=== PATIENT | female | born 1930 | race Caucasian/White ===

== ENCOUNTER 2016-07-09 10:33 | Emergency (ER) | payer MEDICARE, BC ==
--- NOTE | 2016-07-09 12:02 | RAD ---
HISTORY: Right wrist pain and swelling COMPARISONS: None VIEWS: 3, Frontal, lateral, and oblique views of the right wrist FINDINGS: BONE DENSITY: There is diffuse osteopenia. BONES: There is a nondisplaced transverse fracture of the distal radial metaphysis. JOINTS: There is osteoarthritis of the first CMC joint and of the fourth and fifth interphalangeal joints ALIGNMENT: There is no dislocation. SOFT TISSUES: Unremarkable. OTHER FINDINGS: None. IMPRESSION: 1. OSTEOPENIA. 2. NONDISPLACED TRANSVERSE FRACTURE OF THE DISTAL RADIAL METAPHYSIS. 3. OSTEOARTHRITIS. 4. THE DEGREE OF OSTEOPENIA MAY MAKE OTHER, NONDISPLACED FRACTURES RADIOGRAPHICALLY OCCULT. IF THERE IS CLINICAL CONCERN FOR OTHER FRACTURE, CONSIDER REPEAT IMAGING.
[2016-07-09 13:07] VITALS: BP 199/168
--- NOTE | 2016-07-10 22:45 | ED ---
Darren Sanchez Adam, scribed for Wei Hedrick MD on 07/09/16 at 1108 . Lower Extremity - HPI Summary HPI Summary: Pt is an 85 year old female presenting with right hip pain, according to the staff at her nursing facility. Her aide states that the pt had an unwitnessed fall yesterday and was diagnosed with a right distal radial fracture. Today she reportedly began to c/o pain in her right hip, although upon examination she denies any pain in her hips. Aside from tenderness in her right wrist, the pt has no complaints at this time. She uses a walker at baseline. - History of Current Complaint Chief Complaint: EDExtremityLower Stated Complaint: RT HIP PAIN Time Seen by Provider: 07/09/16 11:03 Hx Obtained From: Patient, Family/Senior Outside Sales Representative Mechanism Of Injury: Fall From A Standing Position Onset of Pain: Post Accident Onset/Duration: Still Present - In right wrist. Pt denies right hip pain. Severity Initially: Mild Severity Currently: None - In right hip Pain Intensity: 0 Pain Scale Used: 0-10 Numeric Timing: Constant Location: Is Discrete @ - Right wrist (pt denies pain in right hip) Aggravating Factor(s): Movement Alleviating Factor(s): Nothing Able to Bear Weight: Yes - Uses a walker. - Allergies/Home Medications Allergies/Adverse Reactions: Allergies Allergy/AdvReac Type Severity Reaction Status Date / Time Penicillins [PCN] Allergy Unknown Verified 07/09/16 12:11 Reaction Details PMH/Surg Hx/FS Hx/Imm Hx Endocrine/Hematology History: Denies: Hx Anticoagulant Therapy, Hx Blood Disorders Neurological History: Reports: Hx Dementia Infectious Disease History: No Infectious Disease History: Denies: Traveled Outside the [place] in Last 30 Days - Family History Known Family History: Positive: None - R and n/c - Social History Occupation: Retired [facility]: [facility] Alcohol Use: None Hx Substance Use: No Substance Use Type: Reports: None Hx Tobacco Use: No Smoking Status (MU): Never Smoked Tobacco Review of Systems Negative: Fever Positive: Arthralgia - Right wrist All Other Systems Reviewed And Are Negative: Yes Physical Exam Triage Information Reviewed: Yes Vital Signs On Initial Exam: Initial Vitals Temp Pulse Resp BP Pulse Ox 99.6 F 74 16 136/61 93 07/09/16 10:52 07/09/16 10:52 07/09/16 10:52 07/09/16 10:52 07/09/16 10:52 Vital Signs Reviewed: Yes Appearance: Positive: Well-Appearing, No Pain Distress Skin: Positive: Warm, Skin Color Reflects Adequate Perfusion, Dry Head/Face: Positive: Normal Head/Face Inspection Eyes: Positive: Normal ENT: Positive: Normal ENT inspection Neck: Positive: Supple, Nontender Respiratory/Lung Sounds: Positive: Clear to Auscultation, Breath Sounds Present Cardiovascular: Positive: RRR Abdomen Description: Positive: Nontender, Soft Bowel Sounds: Positive: Present Musculoskeletal: Positive: Normal Neurological: Positive: Normal Psychiatric: Positive: Affect/Mood Appropriate - [place] Coma Scale Coma Scale Total: 14 Diagnostics - Vital Signs Vital Signs Temp Pulse Resp BP Pulse Ox 07/09/16 10:52 99.6 F 74 16 136/61 93 - Laboratory Lab Statement: Any lab studies that have been ordered have been reviewed, and results considered in the medical decision making process. - Radiology WRIST X-RAY Radiology Interpretation Completed By: Radiologist - IMPRESSION: 1. OSTEOPENIA. 2. NONDISPLACED TRANSVERSE FRACTURE OF THE DISTAL RADIAL METAPHYSIS. 3. OSTEOARTHRITIS. 4. THE DEGREE OF OSTEOPENIA MAY MAKE OTHER, NONDISPLACED FRACTURES RADIOGRAPHICALLY OCCULT. IF THERE IS CLINICAL CONCERN FOR OTHER FRACTURE, CONSIDER REPEAT IMAGING. Lower Extremity Course/Dx - Course Course Of Treatment: Ms. Serrano had no pain or tenderness in her hips including with ambulation. She did have a nondisplaced right wrist fracture that we splinted for protection. - Diagnoses Provider Diagnoses: Right wrist fracture Discharge - Discharge Plan Condition: Stable Disposition: HOME Patient Education Materials: Wrist Fracture in Adults (ED) Referrals: Megan Breaux MD [Primary Care Provider] - Additional Instructions: Follow up with your Primary Care Physician this week. The documentation as recorded by the Darren manning Adam accurately reflects the service I personally performed and the decisions made by , Wei Hedrick MD.
== END 2016-07-09 13:06 | disposition home or self-care (01) ==
LOC: ED 10:33
DX: S52.591A Other fractures of lower end of right radius, initial encounter for closed fracture (principal); M25.551 Pain in right hip; M85.80 Other specified disorders of bone density and structure, unspecified site; W19.XXXA Unspecified fall, initial encounter; Y93.9 Activity, unspecified; Y92.9 Unspecified place or not applicable
CPT/HCPCS: 99283

== ENCOUNTER 2016-07-28 22:30 | Emergency (ER) | payer MEDICARE, BC ==
--- NOTE | 2016-07-29 00:08 | ED ---
Zachary Sanchez Janilya, scribed for Gemma Pal MD on 07/28/16 at 2258 . Adult Trauma - HPI Summary HPI Summary: An 85 y/o female was BIBA to [facility] presenting w/ an onset of fall that happened today. There is hx of dementia and pt is hard of hearing. The pt lives in a fdc. The fall was unwitnessed. However, there is a bloody and bruised ear. Per nurse from the fdc, pt is on bloodthinners. - History of Current Complaint Chief Complaint: EDGeneral Stated Complaint: SCRATCH ON LT EAR Time Seen by Provider: 07/28/16 22:50 Hx Obtained From: Family/Volunteer Services Supervisor Mechanism of Injury: Fall Pain Intensity: 2 Pain Scale Used: 0-10 Numeric Aggravating Factor(s): Nothing Alleviating Factor(s): Nothing - Allergy/Home Medications Allergies/Adverse Reactions: Allergies Allergy/AdvReac Type Severity Reaction Status Date / Time Penicillins [PCN] Allergy Unknown Verified 07/09/16 12:11 Reaction Details PMH/Surg Hx/FS Hx/Imm Hx Previously Healthy: Yes Endocrine/Hematology History: Denies: Hx Anticoagulant Therapy, Hx Blood Disorders Neurological History: Reports: Hx Dementia Infectious Disease History: Denies: Traveled Outside the [place] in Last 30 Days - Social History Occupation: Retired [facility]: [facility] Alcohol Use: None Hx Substance Use: No Substance Use Type: Reports: None Hx Tobacco Use: No Smoking Status (MU): Never Smoked Tobacco Review of Systems Negative: Fever ENT: Other - bruised and bloody ear All Other Systems Reviewed And Are Negative: Yes Physical Exam Triage Information Reviewed: Yes Vital Signs On Initial Exam: Initial Vitals Temp Pulse Resp BP Pulse Ox 97.4 F 74 16 166/65 98 07/28/16 22:40 07/28/16 22:40 07/28/16 22:40 07/28/16 22:40 07/28/16 22:40 Vital Signs Reviewed: Yes Appearance: Positive: Well-Appearing, No Pain Distress Skin: Positive: Warm, Skin Color Reflects Adequate Perfusion Head/Face: Positive: Other - Ecchymosis on top of oracle on left side Eyes: Positive: EOMI, CRISTA ENT: Positive: Pharynx normal, TMs normal Neck: Positive: Supple, Nontender Respiratory/Lung Sounds: Positive: Clear to Auscultation, Breath Sounds Present. Negative: Rales, Rhonchi, Wheezes Cardiovascular: Positive: RRR. Negative: Murmur, Rub, Other - no gallops Abdomen Description: Positive: Nontender, Soft. Negative: Distended, Guarding, Other: - no rebound Bowel Sounds: Positive: Present Musculoskeletal: Positive: Strength/ROM Intact. Negative: Edema Left, Edema Right Neurological: Positive: Sensory/Motor Intact, Alert, Oriented to Person Place, Time, CN Intact II-III Psychiatric: Positive: Affect/Mood Appropriate Diagnostics - Vital Signs Vital Signs Temp Pulse Resp BP Pulse Ox 07/28/16 22:41 75 166/65 98 07/28/16 22:40 97.4 F 74 16 166/65 98 - Laboratory Lab Statement: Any lab studies that have been ordered have been reviewed, and results considered in the medical decision making process. - CT brain CT Interpretation: No Acute Changes - No hemorrhage. Involutional changes. Chronic microvascular changes in the cerebral white matter. 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 Old right frontal infarct. Old bilateral cerebellar infarcts. No acute abnormalities are identified. Osseous structures are intact. CT Interpretation Completed By: Radiologist Adult Trauma Course/Dx - Course Course Of Treatment: An 85 y/o female was BIBA to [facility] presenting w/ an onset of fall that happened today. There is hx of dementia and pt is hard of hearing. The pt lives in a fdc. The fall was unwitnessed. However, there is a bloody and bruised ear. Per nurse from the fdc, pt is on bloodthinners. pt is on aggrenox, ear has a contusion ct brain is negative ok to go home - Diagnoses Provider Diagnoses: Contusion of ear Discharge - Discharge Plan Condition: Stable Disposition: HOME Patient Education Materials: Contusion in Adults (ED) Referrals: Megan Breaux MD [Primary Care Provider] - 2 Days The documentation as recorded by the Zachary manning Janilya accurately reflects the service I personally performed and the decisions made by me, Gemma Pal MD.
[2016-07-29 00:17] VITALS: BP 157/72
--- NOTE | 2016-07-29 08:10 | RAD ---
Indication: Bruised and bloodied ear. Possible unwitnessed fall. Comparison: January 01, 2016. Technique: Noncontrast CT vertex of skull through foramen magnum. Report: Negative for intra or extra-axial hemorrhage. Moderate region of encephalomalacia at the RIGHT occipital lobe and contiguous parietal lobe without change consistent with sequela of previous infarct. Patchy encephalomalacia at the LEFT occipital lobe without change likely also secondary to previous infarcts. Decreased density in the periventricular and subcortical white matter while non-specific is most likely due to chronic microangiopathy. No new region of monge matter white matter obscuration evident. Moderate prominence of the cerebral sulci and cerebellar fissures as well as proportional enlargement of the ventricles reflecting atrophy. Patent basal cisterns. Unremarkable visualized orbital contents. Negative for calvarial or skull base fracture. Clear visualized paranasal sinuses and mastoid air spaces. Negative for scalp hematoma.. IMPRESSION: 1. No evidence for traumatic injury or acute intracranial process. 2. Atrophy, stigmata of chronic small vessel ischemic disease, and old infarcts at the RIGHT posterior cerebral artery distribution and LEFT cerebellum.
== END 2016-07-29 00:29 | disposition home or self-care (01) ==
LOC: ED 22:30
DX: S00.432A Contusion of left ear, initial encounter (principal); W19.XXXA Unspecified fall, initial encounter; Y93.9 Activity, unspecified; Y92.9 Unspecified place or not applicable; Y99.9 Unspecified external cause status
CPT/HCPCS: 70450; 99283

== ENCOUNTER 2016-11-23 21:45 | Inpatient (IN) | payer MEDICARE, BC ==
[2016-11-23] MEDS ORDERED: NS 0.9% 1000 ML* 1,000 ML IV ONE (22:09)
--- NOTE | 2016-11-23 22:36 | ED ---
Linh Sanchez Rebecca, scribed for Phi Pierre MD on 11/23/16 at 2209 . 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 Upon EMS arrival, pt is alert and answers questions. Per EMS, her staff reports that she is requiring more assistance than usual to stand up and use her walker. When asked, pt denies any pain, nausea and SOB, though she repeatedly states "I don't know anything." Per staff, recent Dx UTI. PMHx dementia. History obtained from pt is very limited secondary to PMHx dementia. 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 Negative: SOB, Nausea Related History: Recent Illness - UTI - Allergies/Home Medications Allergies/Adverse Reactions: Allergies Allergy/AdvReac Type Severity Reaction Status Date / Time Penicillins [PCN] Allergy Unknown Verified 07/09/16 12:11 Reaction Details Home Medications: Home Medications Acetaminophen [Eql Acetaminophen] 325 mg PO Q4HR PRN 11/24/16 [History Confirmed 11/24/16] Amlodipine Besylate [Norvasc 10 mg tab] 10 mg PO DAILY 11/24/16 [History Confirmed 11/24/16] Aspirin-Dipyridamole [Aspirin/Dipyridamole 25-200 mg] 1 cap PO BID 11/24/16 [ History Confirmed 11/24/16] Atorvastatin* [Lipitor*] 20 mg PO 2100 11/24/16 [History Confirmed 11/24/16] Benazepril & Hydrochlorothiazi [Benazepril HCl/Hydrochlor 20-12.5 mg-] 1 tab PO 1200 11/24/16 [History Confirmed 11/24/16] Calcium Carbonate-Vitamin D [Calcium 600 + D] 1 tab PO DAILY 11/24/16 [History Confirmed 11/24/16] Donepezil Hydrochloride [Donepezil HCl] 10 mg PO 1200 11/24/16 [History Confirmed 11/24/16] HydroxyUREA CAP* [Hydrea CAP*] 500 mg PO DAILY 11/24/16 [History Confirmed 11/24] Memantine XR CAP* [Namenda XR CAP*] 14 mg PO 2100 11/24/16 [History Confirmed ] Metoprolol Tartrate TAB* [Lopressor TAB*] 25 mg PO BID 11/24/16 [History Confirmed 11/24/16] Multiple Vitamins W/ Iron [Daily Bessie Multivitamin/I] 1 tab PO DAILY 11/24/16 [ History Confirmed 11/24/16] Naphazoline W/ Pheniramine [Opcon-A] 1 gretta OP Q4HR PRN 11/24/16 [History Confirmed 11/24/16] Sulfamethox/Trimethoprim DS* [Bactrim DS 800/160 TAB*] 1 tab PO BID 11/24/16 [ History Confirmed 11/24/16] guaiFENesin LIQ* [Robitussin*] 10 mg PO Q4H PRN 11/24/16 [History Confirmed ] PMH/Surg Hx/FS Hx/Imm Hx Endocrine/Hematology History: Denies: Hx Anticoagulant Therapy, Hx Blood Disorders Neurological History: Reports: Hx Dementia Infectious Disease History: No Infectious Disease History: Denies: Traveled Outside the [place] in Last 30 Days - Family History Known Family History: Positive: Unknown - Unable to obtain secondary to dementia /poor historian - Social History Alcohol Use: None Hx Substance Use: No Substance Use Type: Reports: None Hx Tobacco Use: No Smoking Status (MU): Never Smoked Tobacco Review of Systems Positive: Fatigue, Other - Decreased responsiveness 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 Negative: Nausea All Other Systems Reviewed And Are Negative: Yes Physical Exam Triage Information Reviewed: Yes Vital Signs On Initial Exam: Initial Vitals Temp Pulse Resp BP Pulse Ox 97.1 F 68 14 133/54 96 11/23/16 22:04 11/23/16 22:04 11/23/16 22:04 11/23/16 22:04 11/23/16 22:04 Vital Signs Reviewed: Yes Completion Of Physical Exam Limited Due To: Dementia Appearance: Positive: No Pain Distress, Thin Skin: Positive: Warm Head/Face: Positive: Normal Head/Face Inspection Eyes: Positive: CRISTA ENT: Positive: Hearing grossly normal Neck: Positive: Supple Respiratory/Lung Sounds: Positive: Clear to Auscultation, Breath Sounds Present Cardiovascular: Positive: RRR Abdomen Description: Positive: Nontender, Soft Bowel Sounds: Positive: Present Musculoskeletal: Positive: Strength/ROM Intact Neurological: Positive: Sensory/Motor Intact Psychiatric: Positive: Affect/Mood Appropriate Diagnostics - Vital Signs Vital Signs Temp Pulse Resp BP Pulse Ox 11/23/16 22:04 97.1 F 68 14 133/54 96 - Laboratory Result Diagrams: 11/23/16 22:25 11/24/16 00:01 Lab Statement: Any lab studies that have been ordered have been reviewed, and results considered in the medical decision making process. - CT Brain CT CT Interpretation: No Acute Changes - Multiple old infarcts no definite evidence of acute pathology. ED physician reviewed this radiology report and agrees. CT Interpretation Completed By: Radiologist - EKG 2313 Cardiac Rate: NL - 67 bpm EKG Rhythm: Sinus Rhythm EKG Interpretation: No STEMI Re-Evaluation - Re-Evaluation First Eval Re-Evaluation Time: 23:10 Comment: Pt is sleeping upon reevaluation. 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 Upon EMS arrival, pt is alert and answers questions. When asked, pt denies any pain, nausea and SOB, though she repeatedly states "I don't know anything." Per staff , recent UTI. PMHx dementia. History obtained from pt is very limited secondary to PMHx dementia. EKG reveals sinus rhythm. Sodium of 115, chloride of 91. Discussed care of pt with Dr. Narayan who accepts pt for admission. Pt will be admitted with Dx of hyponatremia. She agrees with admission. Elevated BP noted and advised to f/u with PCP. - Diagnoses Provider Diagnoses: Hyponatremia - Physician Notifications Discussed Care Of Patient With: Filippo Narayan Time Discussed With Above Provider: 23:08 Instructed by Provider To: Other - Accepts pt for admission. Discharge - Discharge Plan Condition: Fair Disposition: ADMITTED TO [facility] documentation as recorded by the Linh manning Rebecca accurately reflects the service I personally performed and the decisions made by me, Phi Pierre MD.
[2016-11-23 22:51] LABS: Albumin 3.7 g/dL (3.2-5.2); BUN/Creatinine Ratio 22.4 (8-20); EGFR African American 106.8 (>60); EGFR Non-African American 83.1 (>60); Globulin 2.7 g/dL (2-4); Magnesium 1.9 mg/dL (1.9-2.7); Potassium 4.2 mmol/L (3.5-5.0); Total Bilirubin 0.5 mg/dL (0.2-1.0); Total Protein 6.4 g/dL (6.4-8.9)
[2016-11-23 22:53] LABS: Troponin I 0.01 ng/mL (<0.04)
[2016-11-23 23:15] LABS: TSH (Thyroid Stimulating Horm) 4.42 mcIU/mL (0.34-5.60)
[2016-11-23 23:16] LABS: Hematocrit 35 % (35-47); Hemoglobin 12.1 g/dl (12.0-16.0); Mean Corpuscular HGB Conc 35 g/dl (31-36); Mean Corpuscular Hemoglobin 37 pg (27-31); Mean Platelet Volume 7 um3 (7.4-10.4); Red Blood Count 3.25 10^6/ul (4.0-5.4); Red Cell Distribution Width 14 % (10.5-15); White Blood Count 9.4 10^3/ul (3.5-10.8)
[2016-11-23 23:17] LABS: Add Diff/Slide Review? Slide Review Added; Mean Corpuscular Volume 107 fL (80-97)
[2016-11-23] MEDS ORDERED: Acetaminophen TAB* 325 MG PO PRN (23:17)
[2016-11-23] MEDS ORDERED: Ondansetron INJ* 2 MG/ML VIAL IV PRN (23:18)
--- NOTE | 2016-11-24 00:07 | HP ---
H&P (Free Text) History and Physical: PCP: Pat Breaux MD Date/Time of Evaluation: 11/23/2016 2345 CC: lethargy HPI: Mrs Serrano is an 86YO female who presents with a paucity of information via EMS from [facility]. She has moderate to advanced dementia and is unable to give a history. When asked how she feels, she sticks out her tongue. She is oriented to person and while it takes a bit she is able to state she is in [facility]. She cannot give any current complaints and appears comfortable without objective distress. Per EMS record, they were dispatched due to lethargy and increased assistance requirements along with some N/V/D today. She had labs checked yesterday that were reasonable and is finishing a course of sulfamethoxazole/trimethoprim tomorrow for UTI. There is no report of pain, F/C , cough, congestion, or other issues. Upon arrival, EMS found her to be at her baseline with the licensed nursing assistant stating she felt Mrs Serrano was just tired. PMedHx Alzheimer's dementia CVAs CLL polycythemia thromocytosis HTN HLD Medications Acetaminophen [Eql Acetaminophen] 325 mg PO Q4HR PRN 11/24/16 Amlodipine Besylate [Norvasc 10 mg tab] 10 mg PO DAILY 11/24/16 Aspirin-Dipyridamole [Aspirin/Dipyridamole 25-200 mg] 1 cap PO BID 11/24/16 Atorvastatin* [Lipitor*] 20 mg PO 209911/24/16 Benazepril & Hydrochlorothiazi [Benazepril HCl/Hydrochlor 20-12.5 mg-] 1 tab PO 1200 11/24/16 Calcium Carbonate-Vitamin D [Calcium 600 + D] 1 tab PO DAILY 11/24/16 Donepezil Hydrochloride [Donepezil HCl] 10 mg PO 1200 11/24/16 HydroxyUREA CAP* [Hydrea CAP*] 500 mg PO DAILY 11/24/16 Memantine XR CAP* [Namenda XR CAP*] 14 mg PO 209911/24/16 Metoprolol Tartrate TAB* [Lopressor TAB*] 25 mg PO BID 11/24/16 Multiple Vitamins W/ Iron [Daily Bessie Multivitamin/I] 1 tab PO DAILY 11/24/16 Naphazoline W/ Pheniramine [Opcon-A] 1 gretta OP Q4HR PRN 11/24/16 Sulfamethox/Trimethoprim DS* [Bactrim DS 800/160 TAB*] 1 tab PO BID 11/24/16 guaiFENesin LIQ* [Robitussin*] 10 mg PO Q4H PRN 11/24/16 Allergies Penicillins [PCN] Allergy (Verified 07/09/16 12:11) Unknown Reaction Details PSurgHx unobtainable SocHx: unobtainable FamHx: unobtainable ROS: as above, otherwise reviewed and all were negative Constitutional: NAD, normally developed, elderly white female vitals: Vital Signs Temp 36.8 C 11/23/16 22:39 Pulse 73 11/23/16 22:39 Resp 16 11/23/16 22:39 BP 121/50 11/23/16 22:39 Pulse Ox 96 11/23/16 22:39 Intake & Output 11/23/16 11/23/16 11/24/16 11:59 23:59 11:59 Weight 44.452 kg HEENM: atraumatic; sclera/conjunctiva: non-icteric/clear; hearing: unable to reliably assess; oropharynx: clear, mucosa tacky Neck: soft tissue: non-tender; thyroid: normal Pulmonary: clear to auscultation bilaterally, good aeration, no accessory muscle use CV: RR/RR, normal S1S2, no carotid bruit, no jugular venous distention, 2+ B DP/ PT, no edema Abdominal: soft, non-distended, non-tender with voluntary guarding but no rebound/rigidity, normoactive bowel sounds, no hepatosplenomegaly or masses, no costovertebral angle tenderness Musculoskeletal: general: grossly intact, no palpable tenderness Integumental: normal appearance and texture of exposed skin Neurological intact facial symmetry moves extremities x4 no dysarthria Psychiatric orientation: AA&O to PP, not TS, confused affect: comfortable mood: immature eye contact: fair to poor content: unreliable memory: poor globally responses: slowed insight: poor Testing: Lab Results 11/23/16 11/23/16 11/23/16 Range/Units 22:25 22:25 22:25 WBC 9.4 (3.5-10.8) 10^3/ul RBC 3.25 L (4.0-5.4) 10^6/ul Hgb 12.1 (12.0-16.0) g/dl Hct 35 (35-47) % MCV 107 H (80-97) fL MCH 37 H (27-31) pg MCHC 35 (31-36) g/dl RDW 14 (10.5-15) % Plt Count 255 (150-450) 10^3/ul MPV 7 L (7.4-10.4) um3 Neut % (Auto) 80.0 (38-83) % Lymph % (Auto) 12.6 L (25-47) % Wilkin % (Auto) 6.7 (1-9) % Eos % (Auto) 0.4 (0-6) % Baso % (Auto) 0.3 (0-2) % Absolute Neuts (auto) 7.5 (1.5-7.7) 10^3/ul Absolute Lymphs (auto) 1.2 (1.0-4.8) 10^3/ul Absolute Monos (auto) 0.6 (0-0.8) 10^3/ul Absolute Eos (auto) 0 (0-0.6) 10^3/ul Absolute Basos (auto) 0 (0-0.2) 10^3/ul Absolute Nucleated RBC 0 10^3/ul Nucleated RBC % 0 Sodium 115 L* D (133-145) mmol/L Potassium 4.2 (3.5-5.0) mmol/L Chloride 91 L (101-111) mmol/L Carbon Dioxide 23 (22-32) mmol/L Anion Gap 1 L (2-11) mmol/L BUN 15 (6-24) mg/dL Creatinine 0.67 (0.51-0.95) mg/dL Est GFR ( Amer) 106.8 (>60) Est GFR (Non-Af Amer) 83.1 (>60) BUN/Creatinine Ratio 22.4 H (8-20) Glucose 105 H (70-100) mg/dL Lactic Acid 1.1 (0.5-2.0) mmol/L Calcium 9.0 (8.6-10.3) mg/dL Magnesium 1.9 (1.9-2.7) mg/dL Total Bilirubin 0.50 (0.2-1.0) mg/dL AST 21 (13-39) U/L ALT 20 (7-52) U/L Alkaline Phosphatase 73 (34-104) U/L Troponin I 0.01 (<0.04) ng/mL Total Protein 6.4 (6.4-8.9) g/dL Albumin 3.7 (3.2-5.2) g/dL Globulin 2.7 (2-4) g/dL Albumin/Globulin Ratio 1.4 (1-3) TSH 4.42 (0.34-5.60) mcIU/mL ECG, personally reviewed: NSR rate 67, no ischemia CT brain WO, personally reviewed: no acute process seen, final report pending Impression: 86F presenting with a period of lethargy, increased ambulatory assistance requirement found to have a serum Na of 115 (rechecked at 121), was 124 yesterday DIAGNOSIS & PLAN Primary hypoNatremia : likely 2nd poor PO intake with N/V/D combined with HCTZ : D/C HCTZ component of benazepril/HCTZ : volume repletion, trend : seizure precautions : supportive care AMS : with relative stability of her hypoNatremia & spontaneous resolution, suspect this is behavioral 2nd dementia Secondary Alzheimer's dementia : continue donepezil & memantine HX CVAs : continue aspirin/dipyridamole CLL : no acute issues polycythemia : controlled, periodic monitoring thromocytosis : controlled, periodic monitoring HTN, controlled : continue benazepril, metoprolol, & amlodipine : D/C HCTZ HLD : continue atorvastatin Admission Rational: observation for hypoNatremia DVTp: heparin SQ & SCDs Code Status: full HCP: Phi Serrano [phone]
[2016-11-24 00:38] LABS: BUN/Creatinine Ratio 21.5 (8-20); Calcium 9.3 mg/dL (8.6-10.3); EGFR African American 110.6 (>60); Potassium 4.3 mmol/L (3.5-5.0)
[2016-11-24] MEDS ORDERED: NS 0.9% 1000 ML* 750 ML IV ONE (01:08)
[2016-11-24 04:43] LABS: Hematocrit 36 % (35-47); Hemoglobin 12.4 g/dl (12.0-16.0); Mean Corpuscular HGB Conc 34 g/dl (31-36); Mean Corpuscular Hemoglobin 37 pg (27-31); Mean Platelet Volume 7 um3 (7.4-10.4); Red Blood Count 3.33 10^6/ul (4.0-5.4); Red Cell Distribution Width 13 % (10.5-15); White Blood Count 7.8 10^3/ul (3.5-10.8)
[2016-11-24 04:44] LABS: Comments Flag Yes; Mean Corpuscular Volume 109 fL (80-97)
[2016-11-24] MEDS: Omeprazole CAP* 20 MG PO SCH (06:34)
--- NOTE | 2016-11-24 07:48 | RAD ---
HISTORY: Altered mental status COMPARISONS: July 28, 2016 TECHNIQUE: Multiple contiguous axial CT scans were obtained of the head without intravenous contrast. FINDINGS: HEMORRHAGE/INFARCT: There is no hemorrhage or acute infarct. MASSES/SHIFT: There is no mass or shift. EXTRA-AXIAL SPACES: There are no extra-axial fluid collections. SULCI AND VENTRICLES: There is diffuse and proportional enlargement of the sulci and ventricles. CEREBRUM: There is hypoattenuation of the periventricular and subcortical white matter. There is right parieto-occipital and frontal encephalomalacia consistent with remote infarct. This is stable BRAINSTEM: There are no focal parenchymal abnormalities. CEREBELLUM: There are remote infarcts in the cerebral hemispheres bilaterally, stable. VESSELS: There is calcification of the cavernous segments of the internal carotid arteries bilaterally and of the distal vertebral arteries bilaterally. PARANASAL SINUSES: The paranasal sinuses are clear. ORBITS: The orbits are unremarkable. BONES AND SOFT TISSUE: No bone or soft tissue abnormalities are noted. OTHER: None IMPRESSION: 1. NO ACUTE INTRACRANIAL PATHOLOGY. 2. 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 3. DIFFUSE INVOLUTIONAL CHANGE WITH CHRONIC SMALL VESSEL ISCHEMIC CHANGES.
[2016-11-24] MEDS ORDERED: Sulfamethox/Trimethoprim DS 800/160* TAB PO SCH (09:00)
[2016-11-24] MEDS: Docusate CAP* 100 MG PO SCH ×2 (09:13→21:45)
[2016-11-24] MEDS: amLODIPine TAB* 5 MG PO SCH (09:13)
[2016-11-24] MEDS: Metoprolol Tartrate TAB* 25 MG PO SCH ×2 (09:14→21:45)
[2016-11-24] MEDS: HydroxyUREA CAP* 500 MG CAP PO SCH (09:14)
[2016-11-24] MEDS: Dipyridamole/Aspirin 25/200* CAP.ER PO SCH ×2 (09:14→21:45)
[2016-11-24] MEDS: NS 0.9% 1000 ML* 1,000 ML IV SCH ×2 (10:15→21:49)
[2016-11-24] MEDS: Lisinopril TAB* 10 MG PO SCH (12:17)
[2016-11-24] MEDS: Donepezil TAB* 5 MG PO SCH (12:18)
--- NOTE | 2016-11-24 15:15 | PN ---
Subjective Date of Service: 11/24/16 Interval History: Patient feeling better with no complaints. However, patient is quite confused due to underlying dementia. Objective Active Medications: Acetaminophen (Tylenol Tab*) 650 mg PO Q6H PRN PRN Reason: FEVER/PAIN Amlodipine Besylate (Norvasc Tab*) 10 mg PO DAILY [facility] Last Admin: 11/24/16 09:13 Dose: 10 mg Atorvastatin Calcium (Lipitor*) 20 mg PO 2100 [facility] Dipyridamole/Aspirin (Aggrenox 25/200*) 1 cap.er PO BID [facility] Last Admin: 11/24/16 09:14 Dose: 1 cap.er Docusate Sodium (Colace Cap*) 200 mg PO BID [facility] Last Admin: 11/24/16 09:13 Dose: 200 mg Donepezil HCl (Aricept Tab*) 10 mg PO 1200 [facility] Last Admin: 11/24/16 12:18 Dose: 10 mg Heparin Sodium (Porcine) (Heparin Vial(*)) 5,000 units SUBCUT Q8HR [facility] Hydroxyurea (Hydrea Cap*) 500 mg PO DAILY [facility] Last Admin: 11/24/16 09:14 Dose: 500 mg Sodium Chloride (Ns 0.9% 1000 Ml*) 1,000 mls @ 75 mls/hr IV PER RATE [facility] Last Admin: 11/24/16 10:15 Dose: 75 mls/hr Lisinopril (Prinivil Tab*) 20 mg PO 1200 [facility] Last Admin: 11/24/16 12:17 Dose: 20 mg Melatonin (Melatonin (Nf)) 3 mg PO BEDTIME PRN; Protocol PRN Reason: Sleep Memantine (Namenda Xr Cap*) 14 mg PO 2100 [facility] Metoprolol Tartrate (Lopressor Tab*) 25 mg PO BID [facility] Last Admin: 11/24/16 09:14 Dose: 25 mg Omeprazole (Prilosec Cap*) 20 mg PO DAILY@0600 [facility] Last Admin: 11/24/16 06:34 Dose: 20 mg Ondansetron HCl (Zofran Inj*) 4 mg IV Q6H PRN PRN Reason: NAUSEA Oxygen Devices in Use Now: None Appearance: Elderly woman lying in bed in [facility] Eyes: No Scleral Icterus Ears/Nose/Mouth/Throat: Mucous Membranes Moist Neck: No Thyroid Enlargement, Masses Respiratory: Clear to Auscultation Cardiovascular: - - S1S2 gregg Abdominal: NL Sounds; No Tenderness; No Distention, No Hepatosplenomegaly Lymphatic: No Cervical Adenopathy Extremities: No Clubbing, Cyanosis Skin: No Rash or Ulcers Neurological: - - Alert and oriented X 1 Result Diagrams: 11/24/16 04:31 11/24/16 00:01 Assess/Plan/Problems-Billing Assessment: 86 year old who presented to [facility] with a cc of weakness as per SNF. - Patient Problems (1) Hyponatremia Current Visit: Yes Status: Acute Code(s): E87.1 - HYPO-OSMOLALITY AND HYPONATREMIA SNOMED Code(s): 27574757 Comment: Unclear etiology although I agree may be combination of factors including volume depletion and hydrochlorothiazide. Continue IVF. Check CXR to r /o pneumonic process as etiology. (2) Dementia Current Visit: Yes Status: Acute Code(s): F03.90 - UNSPECIFIED DEMENTIA WITHOUT BEHAVIORAL DISTURBANCE SNOMED Code(s): 01487699 Comment: Stable. Continue Namenda and Aricept. (3) Hypertension Current Visit: Yes Status: Acute Code(s): I10 - ESSENTIAL (PRIMARY) HYPERTENSION SNOMED Code(s): 31834535 Comment: Adequate control. Continue current regimen without HCTZ (4) CVA, old, cognitive deficits Current Visit: Yes Status: Acute Code(s): I69.319 - UNSP SYMPTOMS AND SIGNS W COGN FNCTNS FOL CEREBRAL INFRC SNOMED Code(s): 917209815 Comment: Monitor. No evidence of acute CVA. (5) DVT prophylaxis Current Visit: Yes Status: Acute Code(s): VOX4450 - SNOMED Code(s): 140341393 Comment: Heparin and SCDs (6) DNR (do not resuscitate) Current Visit: Yes Status: Acute
[2016-11-24 15:28] LABS: BUN/Creatinine Ratio 18.8 (8-20); Blood Urea Nitrogen 12 mg/dL (6-24); CO2 Carbon Dioxide 19 mmol/L (22-32); Calcium 8.4 mg/dL (8.6-10.3); Chloride 103 mmol/L (101-111); EGFR African American 112.6 (>60); EGFR Non-African American 87.6 (>60); Glucose 120 mg/dL (70-100); Sodium 126 mmol/L (133-145)
[2016-11-24 15:32] LABS: Anion Gap 4 mmol/L (2-11)
--- NOTE | 2016-11-24 16:15 | RAD ---
HISTORY: Hyponatremia COMPARISONS: None VIEWS:1: Single frontal portable view of the chest at 3:39 PM FINDINGS: LINES AND TUBES: None. CARDIOMEDIASTINAL SILHOUETTE: The cardiomediastinal silhouette is normal for portable technique. PLEURA: The costophrenic angles are sharp. No pleural abnormalities are noted. LUNG PARENCHYMA: The lungs are clear. ABDOMEN: The upper abdomen is clear. There is no subphrenic gas. BONES AND SOFT TISSUES: No bone or soft tissue abnormalities are noted. IMPRESSION: NO ACTIVE CARDIOPULMONARY DISEASE.
[2016-11-24] MEDS: CMCS: Melatonin (NF) 3 MG TAB PO PRN (21:45)
[2016-11-24] MEDS: Atorvastatin* 20 MG TAB PO SCH (21:45)
[2016-11-24] MEDS: MEMANTINE 14 MG PO SCH (21:45)
[2016-11-25] MEDS: Omeprazole CAP* 20 MG PO SCH (05:07)
[2016-11-25] MEDS: Heparin VIAL(*) 5000 UNITS/ML VIAL (FIVE THOUSAND) SUBCUT SCH ×3 (05:07→21:34)
[2016-11-25] MEDS: Docusate CAP* 100 MG PO SCH ×2 (10:29→21:34)
[2016-11-25] MEDS: amLODIPine TAB* 5 MG PO SCH (10:29)
[2016-11-25] MEDS: HydroxyUREA CAP* 500 MG CAP PO SCH (10:30)
[2016-11-25] MEDS: Donepezil TAB* 5 MG PO SCH (10:30)
[2016-11-25] MEDS: Dipyridamole/Aspirin 25/200* CAP.ER PO SCH ×2 (10:30→21:33)
[2016-11-25] MEDS: Metoprolol Tartrate TAB* 25 MG PO SCH ×2 (10:30→21:33)
[2016-11-25] MEDS: Lisinopril TAB* 10 MG PO SCH (12:52)
--- NOTE | 2016-11-25 15:39 | PN ---
Subjective Date of Service: 11/25/16 Interval History: Patient confused but without complaints. Objective Active Medications: Acetaminophen (Tylenol Tab*) 650 mg PO Q6H PRN PRN Reason: FEVER/PAIN Amlodipine Besylate (Norvasc Tab*) 10 mg PO DAILY [facility] Last Admin: 11/25/16 10:29 Dose: 10 mg Atorvastatin Calcium (Lipitor*) 20 mg PO 2100 [facility] Last Admin: 11/24/16 21:45 Dose: 20 mg Dipyridamole/Aspirin (Aggrenox 25/200*) 1 cap.er PO BID [facility] Last Admin: 11/25/16 10:30 Dose: 1 cap.er Docusate Sodium (Colace Cap*) 200 mg PO BID [facility] Last Admin: 11/25/16 10:29 Dose: 200 mg Donepezil HCl (Aricept Tab*) 10 mg PO 1200 [facility] Last Admin: 11/25/16 10:30 Dose: 10 mg Heparin Sodium (Porcine) (Heparin Vial(*)) 5,000 units SUBCUT Q8HR [facility] Last Admin: 11/25/16 14:11 Dose: 5,000 units Hydroxyurea (Hydrea Cap*) 500 mg PO DAILY [facility] Last Admin: 11/25/16 10:30 Dose: 500 mg Lisinopril (Prinivil Tab*) 20 mg PO 1200 [facility] Last Admin: 11/25/16 12:52 Dose: 20 mg Melatonin (Melatonin (Nf)) 3 mg PO BEDTIME PRN; Protocol PRN Reason: Sleep Last Admin: 11/24/16 21:45 Dose: 3 mg Memantine (Namenda Xr Cap*) 14 mg PO 2100 [facility] Last Admin: 11/24/16 21:45 Dose: 14 mg Metoprolol Tartrate (Lopressor Tab*) 25 mg PO BID [facility] Last Admin: 11/25/16 10:30 Dose: 25 mg Omeprazole (Prilosec Cap*) 20 mg PO DAILY@0600 [facility] Last Admin: 11/25/16 05:07 Dose: 20 mg Ondansetron HCl (Zofran Inj*) 4 mg IV Q6H PRN PRN Reason: NAUSEA Vital Signs 11/24/16 11/24/16 11/24/16 15:45 20:00 20:07 Temperature 99.4 F 99.1 F Pulse Rate 78 80 Respiratory 18 18 18 Rate Blood Pressure 125/57 140/50 (mmHg) O2 Sat by Pulse 97 97 Oximetry 11/24/16 11/25/16 11/25/16 22:25 05:15 07:31 Temperature 99.6 F 99.3 F 99.5 F Pulse Rate 70 81 82 Respiratory 18 18 14 Rate Blood Pressure 111/40 127/48 122/39 (mmHg) O2 Sat by Pulse 97 95 96 Oximetry 11/25/16 11/25/16 08:00 11:39 Temperature 98.7 F Pulse Rate 76 Respiratory 14 20 Rate Blood Pressure 130/44 (mmHg) O2 Sat by Pulse 97 Oximetry Oxygen Devices in Use Now: None Appearance: Elderly woman lying in bed in [facility] Eyes: No Scleral Icterus Ears/Nose/Mouth/Throat: Mucous Membranes Moist Neck: No Thyroid Enlargement, Masses Respiratory: Clear to Auscultation Cardiovascular: - - S1S2 gregg Abdominal: No Hepatosplenomegaly Lymphatic: No Cervical Adenopathy Extremities: No Edema, No Clubbing, Cyanosis Skin: No Rash or Ulcers Neurological: Alert and Oriented x 3 Result Diagrams: 11/24/16 04:31 11/24/16 17:06 Assess/Plan/Problems-Billing Assessment: 86 year old who [place] [facility] [place] weakness as per SNF. - Patient Problems (1) Hyponatremia Current Visit: Yes Status: Acute Code(s): E87.1 - HYPO-OSMOLALITY AND HYPONATREMIA SNOMED Code(s): 64539516 Comment: CXR unremarkable. Sodium improved.Unclear etiology although I agree may be combination of factors including volume depletion and hydrochlorothiazide. Patient off IVF. May be discharged when decision as to where patient is going is made. (2) Dementia Current Visit: Yes Status: Acute Code(s): F03.90 - UNSPECIFIED DEMENTIA WITHOUT BEHAVIORAL DISTURBANCE SNOMED Code(s): 75857209 Comment: Stable. Continue Namenda and Aricept. (3) Hypertension Current Visit: Yes Status: Acute Code(s): I10 - ESSENTIAL (PRIMARY) HYPERTENSION SNOMED Code(s): 46030603 Comment: Adequate control. Continue current regimen without HCTZ (4) CVA, old, cognitive deficits Current Visit: Yes Status: Acute Code(s): I69.319 - UNSP SYMPTOMS AND SIGNS W COGN FNCTNS FOL CEREBRAL INFRC SNOMED Code(s): 091870784 Comment: Monitor. No evidence of acute CVA. (5) DVT prophylaxis Current Visit: Yes Status: Acute Code(s): FFD4665 - SNOMED Code(s): 053798511 Comment: Heparin and SCDs (6) DNR (do not resuscitate) Current Visit: Yes Status: Acute
[2016-11-25] MEDS: CMCS: Melatonin (NF) 3 MG TAB PO PRN (21:33)
[2016-11-25] MEDS: Atorvastatin* 20 MG TAB PO SCH (21:33)
[2016-11-25] MEDS: MEMANTINE 14 MG PO SCH (21:34)
[2016-11-26] MEDS: Heparin VIAL(*) 5000 UNITS/ML VIAL (FIVE THOUSAND) SUBCUT SCH ×2 (06:04→13:34)
[2016-11-26] MEDS: Omeprazole CAP* 20 MG PO SCH (06:04)
[2016-11-26] MEDS: Docusate CAP* 100 MG PO SCH (07:30)
[2016-11-26] MEDS: Metoprolol Tartrate TAB* 25 MG PO SCH (07:30)
[2016-11-26] MEDS: amLODIPine TAB* 5 MG PO SCH (07:30)
[2016-11-26] MEDS: Dipyridamole/Aspirin 25/200* CAP.ER PO SCH (07:30)
[2016-11-26] MEDS: HydroxyUREA CAP* 500 MG CAP PO SCH (07:33)
[2016-11-26] MEDS: Donepezil TAB* 5 MG PO SCH (13:33)
[2016-11-26] MEDS: Lisinopril TAB* 10 MG PO SCH (13:34)
[2016-11-26 15:31] VITALS: BP 121/60
--- NOTE | 2016-11-27 01:34 | DS ---
CC: Megan Breaux MD * DISCHARGE SUMMARY: DATE OF ADMISSION: 11/23/16 DATE OF DISCHARGE: 11/26/16 ADMISSION DIAGNOSES: 1. Lethargy. 2. Hyponatremia. SECONDARY DIAGNOSES: 1. Alzheimer's disease. 2. Hypertension. 3. Hyperlipidemia. 4. Chronic lymphocytic leukemia. DISCHARGE DIAGNOSES: 1. Alzheimer's disease. 2. Hypertension. 3. Hyperlipidemia. 4. Chronic lymphocytic leukemia. HOSPITAL COURSE: The patient is an 86-year-old woman, who presented to the [facility] with apparent lethargy. The patient was found to be significantly hyponatremic on evaluation. Her sodium was 115. The admitting doctor thought that this was likely due to a combination of factors, including volume depletion as well as hydrochlorothiazide. The hydrochlorothiazide was discontinued. The patient was given normal saline and her sodium eventually came up to 126. The patient also seemed brighter and not lethargic. The patient was stable for discharge on 11/26/16. PHYSICAL EXAMINATION ON THE DATE OF DISCHARGE: Pleasant woman lying in bed, in no acute distress. Vital Signs: Blood pressure 145/52, pulse oxygenation 92%, respiratory rate 17 breaths per minute, heart rate 75 beats per minute, temperature 98.5 degrees. HEENT: Normocephalic, atraumatic. Pupils equal, round, and reactive to light. Moist mucous membranes. Neck: Supple. No JVD, bruits, palpable thyroid, or lymphadenopathy. Chest: Clear to auscultation and percussion bilaterally. Cardiovascular: S1 and S2 appreciated. Abdominal Exam: Positive bowel sounds in all 4 quadrants. Soft, nontender, and nondistended. No hepatosplenomegaly. Extremities: No cyanosis, clubbing, or edema. +2 peripheral pulses bilaterally. Neuro: Alert and oriented x1. Moves all extremities. Skin: No distinct rashes and no abnormalities. STUDIES DONE WHILE IN THE HOSPITAL: Brain CT, 11/23/16, impression: No acute intracranial pathology, multiple chronic infarction, different vascular territories, diffuse involutional changes, chronic small vessel ischemic changes. Chest x-ray, 11/24/16, impression: No active cardiopulmonary disease. DISCHARGE MEDICATIONS: 1. Opcon-A 1 solution ophthalmologically q.4 hours as needed. 2. Metoprolol tartrate 25 mg twice daily. 3. Tylenol 325 mg every 4 hours as needed. 4. Aggrenox 1 capsule twice daily. 5. Guaifenesin 2 mg every 4 hours as needed. 6. Namenda XR 40 mg daily. 7. Hydroxyurea 500 mg daily. 8. Donepezil 10 mg daily. 9. Multivitamin 1 tablet daily. 10. Calcium carbonate with vitamin D 600 plus D 1 tablet daily. 11. Atorvastatin 20 mg daily. 12. Amlodipine 10 mg daily. 13. Lisinopril 20 mg daily. DISCHARGE PLAN: The patient will be discharged back to [facility], she will hold hydrochlorothiazide. Encourage p.o. intake including fluids. TIME SPENT: Over 35 minutes was spent on this discharge, more than 20 minutes of which were spent in direct [id number] contact with the patient in evaluation, physical examination, counseling, and coordination of care. [id number]/CPS #: [id number] MTDD
== END 2016-11-26 16:15 | DRG 641 ==
LOC: ED 21:45 → MED 23:39 → OBSVTOIN 11-24 13:15
PROVIDERS: ADMIT Hospitalist; ATTEND Internal Medicine
DX: E87.1 Hypo-osmolality and hyponatremia (principal); C91.10 Chronic lymphocytic leukemia of B-cell type not having achieved remission; G30.9 Alzheimer's disease, unspecified; F02.80 Dementia in other diseases classified elsewhere, unspecified severity, without behavioral disturbance, psychotic disturbance, mood disturbance, and anxiety; I10 Essential (primary) hypertension; E78.5 Hyperlipidemia, unspecified; D75.1 Secondary polycythemia; D47.3 Essential (hemorrhagic) thrombocythemia; Z66 Do not resuscitate; I69.319 Unspecified symptoms and signs involving cognitive functions following cerebral infarction; Z79.1 Long term (current) use of non-steroidal anti-inflammatories (NSAID); Z79.82 Long term (current) use of aspirin; Z79.899 Other long term (current) drug therapy; Z88.0 Allergy status to penicillin
CPT/HCPCS: 36415; 70450; 71010; 80048; 80053; 83605; 83735; 84443; 84484; 85025; 85027; 85730; 87641; 93005; A9270-GY; J1644

== ENCOUNTER 2017-05-11 00:02 | Emergency (ER) | payer MEDICARE, BC ==
[2017-05-11] MEDS ORDERED: Ondansetron INJ* 2 MG/ML VIAL IV ONE (00:06)
[2017-05-11] MEDS ORDERED: Morphine INJ* 2 MG/ML 1 ML CARPUJECT IV ONE (00:06)
[2017-05-11 00:57] LABS: ABS Basophils 0.1 10^3/ul (0-0.2); ABS Eosinophils 0.2 10^3/ul (0-0.6); ABS Monocytes 0.8 10^3/ul (0-0.8); ABS Neutrophils 7.2 10^3/ul (1.5-7.7); ABS Nucleated RBC 0 10^3/ul; Eosinophil % 1.9 % (0-6); Hematocrit 37 % (35-47); Hemoglobin 12.6 g/dl (12.0-16.0); Lymphocyte % 19.2 % (25-47); Mean Corpuscular HGB Conc 34 g/dl (31-36); Mean Corpuscular Hemoglobin 36 pg (27-31); Mean Corpuscular Volume 106 fL (80-97); Mean Platelet Volume 7 um3 (7.4-10.4); Nucleated Red Blood Cells % 0.1; Platelet Count 282 10^3/ul (150-450); Red Blood Count 3.46 10^6/ul (4.0-5.4); Red Cell Distribution Width 15 % (10.5-15); White Blood Count 10.3 10^3/ul (3.5-10.8)
[2017-05-11 00:59] LABS: INR 0.94 (0.77-1.02)
[2017-05-11 01:12] LABS: EGFR Non-African American 81.7 (>60)
[2017-05-11 01:54] LABS: Urine Appearance Cloudy; Urine Blood Negative (Negative); Urine Color Yellow; Urine Ketones Negative (Negative); Urine Protein Negative (Negative); Urine Specific Gravity 1.004 (1.010-1.030); Urine Urobilinogen Negative (Negative)
[2017-05-11 03:34] VITALS: BP 131/49
--- NOTE | 2017-05-11 04:05 | ED ---
Uriel Sanchez Jason, scribed for Halie Schroeder MD on 05/11/17 at 0012 . Lower Extremity - HPI Summary HPI Summary: This patient is an 86 year old F BIBA to [facility] with a chief complaint of left hip pain since 2329 on May 10, 2017. EMS states that there was an unwitnessed fall [employer]. The patient was experiencing hip pain at the time of EMS arrival. The patient rates the pain 0/10 in severity. The patient does not report any current pain. Symptoms aggravated by nothing. Symptoms alleviated by nothing. - History of Current Complaint Chief Complaint: EDHipPelvisInjury Stated Complaint: FALL Time Seen by Provider: 05/11/17 00:03 Hx Obtained From: Patient Hx From Patient Unobtainable Due To: Dementia Mechanism Of Injury: Fall From A Standing Position Pain Intensity: 6 Pain Scale Used: 0-10 Numeric Timing: Constant Associated Signs And Symptoms: Positive: Other - left hip pain Aggravating Factor(s): Nothing Alleviating Factor(s): Nothing - Allergies/Home Medications Allergies/Adverse Reactions: Allergies Allergy/AdvReac Type Severity Reaction Status Date / Time MS Penicillins [PCN] Allergy Unknown Verified 05/11/17 00:06 Reaction Details PMH/Surg Hx/FS Hx/Imm Hx Previously Healthy: No Endocrine/Hematology History: Denies: Hx Anticoagulant Therapy, Hx Blood Disorders Cardiovascular History: Reports: Hx Hypertension Sensory History: Denies: Hx Contacts or Glasses - none with pt, Hx Hearing Aid Opthamlomology History: Denies: Hx Contacts or Glasses - none with pt Neurological History: Reports: Hx Dementia - Cancer History Cancer Type, 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 GENERAL: ~Patient is a well-developed and nourished (MALE OR FEMALE) who is lying comfortable in the stretcher. Patient is not in any acute respiratory distress. HEAD AND FACE: No signs of trauma. No ecchymosis, hematomas or skull depressions. No sinus tenderness. EYES: PERRLA, EOMI x 2, No injected conjunctiva, no nystagmus. EARS: Hearing grossly intact. Ear canals and tympanic membranes are within normal limits. MOUTH: Oropharynx within normal limits. NECK: Supple, trachea is midline, no adenopathy, no JVD, no carotid bruit, no c- spine tenderness, neck with full ROM. CHEST: Symmetric, no tenderness at palpation LUNGS: Clear to auscultation bilaterally. No wheezing or crackles. CVS: Regular rate and rhythm, S1 and S2 present, no murmurs or gallops appreciated. ABDOMEN: Soft, non-tender. No signs of distention. No rebound no guarding, and no masses palpated. Bowel sounds are normal. EXTREMITIES: FROM in all major joints, no edema, no cyanosis or clubbing. Shortening and external rotation of the LLE. Right ecchymotic area over the hip joint with swelling. NEURO: Alert and oriented to her name. No acute neurological deficits. Speech is normal and follows commands. SKIN: Dry and warm Triage Information Reviewed: Yes Vital Signs On Initial Exam: Initial Vitals Temp Pulse Resp BP Pulse Ox 36.8 C 78 22 176/69 97 05/11/17 00:04 05/11/17 00:04 05/11/17 00:04 05/11/17 00:04 05/11/17 00:04 Vital Signs Reviewed: Yes Diagnostics - Vital Signs Vital Signs Temp Pulse Resp BP Pulse Ox 05/11/17 03:36 36.2 C 84 16 131/49 97 05/11/17 03:31 84 94 05/11/17 03:29 131/49 05/11/17 02:36 81 17 95 05/11/17 02:30 86 17 168/72 95 05/11/17 02:00 78 16 163/71 94 05/11/17 01:33 81 18 177/75 97 05/11/17 01:00 73 14 149/67 92 05/11/17 00:41 77 6 170/66 96 05/11/17 00:04 36.8 C 78 22 176/69 97 - Laboratory Lab Results: Lab Results 05/11/17 05/11/17 05/11/17 Range/Units 00:35 00:35 00:35 WBC 10.3 (3.5-10.8) 10^3/ul RBC 3.46 L (4.0-5.4) 10^6/ul Hgb 12.6 (12.0-16.0) g/dl Hct 37 (35-47) % MCV 106 H (80-97) fL MCH 36 H (27-31) pg MCHC 34 (31-36) g/dl RDW 15 (10.5-15) % Plt Count 282 (150-450) 10^3/ul MPV 7 L (7.4-10.4) um3 Neut % (Auto) 70.5 (38-83) % Lymph % (Auto) 19.2 L (25-47) % Eddy % (Auto) 7.9 (1-9) % Eos % (Auto) 1.9 (0-6) % Baso % (Auto) 0.5 (0-2) % Absolute Neuts (auto) 7.2 (1.5-7.7) 10^3/ul Absolute Lymphs (auto) 2.0 (1.0-4.8) 10^3/ul Absolute Monos (auto) 0.8 (0-0.8) 10^3/ul Absolute Eos (auto) 0.2 (0-0.6) 10^3/ul Absolute Basos (auto) 0.1 (0-0.2) 10^3/ul Absolute Nucleated RBC 0 10^3/ul Nucleated RBC % 0.1 INR (Anticoag Therapy) 0.94 (0.77-1.02) APTT 30.2 (26.0-36.3) seconds Sodium 131 L (133-145) mmol/L Potassium 3.5 (3.5-5.0) mmol/L Chloride 99 L (101-111) mmol/L Carbon Dioxide 25 (22-32) mmol/L Anion Gap 7 (2-11) mmol/L BUN 14 (6-24) mg/dL Creatinine 0.68 (0.51-0.95) mg/dL Est GFR ( Amer) 105.0 (>60) Est GFR (Non-Af Amer) 81.7 (>60) BUN/Creatinine Ratio 20.6 H (8-20) Glucose 101 H (70-100) mg/dL Calcium 8.9 (8.6-10.3) mg/dL Total Bilirubin 0.60 (0.2-1.0) mg/dL AST 17 (13-39) U/L ALT 16 (7-52) U/L Alkaline Phosphatase 62 (34-104) U/L Total Protein 6.2 L (6.4-8.9) g/dL Albumin 3.6 (3.2-5.2) g/dL Globulin 2.6 (2-4) g/dL Albumin/Globulin Ratio 1.4 (1-3) Urine Color Urine Appearance Urine pH (5-9) Ur Specific [place] (1.010-1.030) Urine Protein (Negative) Urine Ketones (Negative) Urine Blood (Negative) Urine Nitrate (Negative) Urine Bilirubin (Negative) Urine Urobilinogen (Negative) Ur Leukocyte Esterase (Negative) Urine WBC (Auto) (Absent) Urine RBC (Auto) (Absent) Ur Squamous Epith Cells (Absent) Urine Bacteria (Absent) Urine Glucose (Negative) Blood Type Antibody Screen 05/11/17 05/11/17 Range/Units 00:35 01:33 WBC (3.5-10.8) 10^3/ul RBC (4.0-5.4) 10^6/ul Hgb (12.0-16.0) g/dl Hct (35-47) % MCV (80-97) fL MCH (27-31) pg MCHC (31-36) g/dl RDW (10.5-15) % Plt Count (150-450) 10^3/ul MPV (7.4-10.4) um3 Neut % (Auto) (38-83) % Lymph % (Auto) (25-47) % Eddy % (Auto) (1-9) % Eos % (Auto) (0-6) % Baso % (Auto) (0-2) % Absolute Neuts (auto) (1.5-7.7) 10^3/ul Absolute Lymphs (auto) (1.0-4.8) 10^3/ul Absolute Monos (auto) (0-0.8) 10^3/ul Absolute Eos (auto) (0-0.6) 10^3/ul Absolute Basos (auto) (0-0.2) 10^3/ul Absolute Nucleated RBC 10^3/ul Nucleated RBC % INR (Anticoag Therapy) (0.77-1.02) APTT (26.0-36.3) seconds Sodium (133-145) mmol/L Potassium (3.5-5.0) mmol/L Chloride (101-111) mmol/L Carbon Dioxide (22-32) mmol/L Anion Gap (2-11) mmol/L BUN (6-24) mg/dL Creatinine (0.51-0.95) mg/dL Est GFR ( Amer) (>60) Est GFR (Non-Af Amer) (>60) BUN/Creatinine Ratio (8-20) Glucose (70-100) mg/dL Calcium (8.6-10.3) mg/dL Total Bilirubin (0.2-1.0) mg/dL AST (13-39) U/L ALT (7-52) U/L Alkaline Phosphatase (34-104) U/L Total Protein (6.4-8.9) g/dL Albumin (3.2-5.2) g/dL Globulin (2-4) g/dL Albumin/Globulin Ratio (1-3) Urine Color Yellow Urine Appearance Cloudy Urine pH 6.0 (5-9) Ur Specific [place] 1.004 L (1.010-1.030) Urine Protein Negative (Negative) Urine Ketones Negative (Negative) Urine Blood Negative (Negative) Urine Nitrate Positive H (Negative) Urine Bilirubin Negative (Negative) Urine Urobilinogen Negative (Negative) Ur Leukocyte Esterase 3+ H (Negative) Urine WBC (Auto) 3+(>20/hpf) H (Absent) Urine RBC (Auto) 1+(3-5/hpf) H (Absent) Ur Squamous Epith Cells Present H (Absent) Urine Bacteria 1+ H (Absent) Urine Glucose Negative (Negative) Blood Type A Positive Antibody Screen Negative Result Diagrams: 05/11/17 00:35 05/11/17 00:35 Lab Statement: Any lab studies that have been ordered have been reviewed, and results considered in the medical decision making process. - Radiology CXR Xray Interpretation: No Acute Changes Radiology Interpretation Completed By: ED Physician Hip X-ray Radiology Interpretation Completed By: ED Physician - Hip X-ray reveals questionable femoral neck fracture. - CT PELVIS CT Interpretation Completed By: ED Physician - CT Pelvis reveals, per radiologist, no acute fracture. Chronic compression fracture L4. 6.8 x 6.4 x 3.6 cm acute hematoma in subcutaneous tissues overlying right greater trochanters, with nearby subcutaneous fat stranding. Incidental 6.0 cm lipoma proximal lateral right thigh subcutaneous tissues. Small right inguinal region hernia containing fat. Muscle atrophy left lower extremity. ED physician has reviewed this radiology report Lower Extremity Course/Dx - Course Course Of Treatment: This patient is an 86 year old F BIBA to [facility] with a chief complaint of left hip pain since 2329 on May 10, 2017. EMS states that there was an unwitnessed fall [employer]. The patient was experiencing hip pain at the time of EMS arrival. The patient rates the pain 0/10 in severity. The patient does not report any current pain. In the ED course the patient was given IV fluids. CXR reveals no acute process. Hip X-ray reveals questionable femoral neck fracture. An EKG reveals Sinus rhythm at 73 bpm, normal axis, normal interval, and Q waves at III and AVF. CT Pelvis reveals, per radiologist , no acute fracture. Chronic compression fracture L4. 6.8 x 6.4 x 3.6 cm acute hematoma in subcutaneous tissues overlying right greater trochanters, with nearby subcutaneous fat stranding. Incidental 6.0 cm lipoma proximal lateral right thigh subcutaneous tissues. Small right inguinal region hernia containing fat. Muscle atrophy left lower extremity. Assessment/Plan: Patient was able to walk throughout the emergency room with a walker. Patient will be discharged with and follow up from PCP. She was advised to perform cold and warm compresses four times a day, not to take blood thinners , give elevation to the affected area, and take tylenol when necessary. The patient is agreeable with this plan. Dx of right hip hematoma. - Diagnoses Provider Diagnoses: Hematoma of right hip Discharge - Discharge Plan Condition: Stable Disposition: HOME Patient Education Materials: Hematoma (ED) Referrals: Megan Breaux MD [Primary Care Provider] - Additional Instructions: perform cold and warm compresses for 5 minutes on, and 5 minutes off four times a day over the affected area. Do not take aspirin, and give the affected area elevation. Take tylenol for the pain when necessary. RETURN TO EMERGENCY DEPARTMENT FOR ANY NEW OR WORSENING SYMPTOMS The documentation as recorded by the Uriel manning Jason accurately reflects the service I personally performed and the decisions made by me, Halie Schroeder MD.
--- NOTE | 2017-05-11 08:03 | RAD ---
Indication: Fall. Pelvic pain. Comparison: November 24, 2016 Technique: Upright AP 0038 hours Report: Mild elevation of the RIGHT hemidiaphragm. Clear lungs and pleural spaces. Negative for pneumothorax. Negative for cardiomegaly. Mitral annulus calcifications noted. Unremarkable central pulmonary vasculature. Suggestion of calcified hilar lymph nodes. Gallbladder fossa level surgical clips. IMPRESSION: No traumatic injury or acute intrathoracic process evident.
--- NOTE | 2017-05-11 08:06 | RAD ---
Indication: Pelvic pain post fall. Comparison: CT pelvis of the same date. Technique: AP pelvis, AP and crosstable lateral views LEFT hip. Report: The LEFT hip is normally located. No LEFT hip or pelvic fracture or pelvic joint diastases. Soft tissue swelling superficial to the RIGHT greater trochanter. Lumbar sacral spine degenerative spondylosis and facet joint osteoarthritis. Peripheral vascular calcifications. IMPRESSION: No radiographic evidence for LEFT hip fracture. Soft tissue swelling superficial to the RIGHT greater trochanter.
--- NOTE | 2017-05-11 08:31 | RAD ---
Indication: Unwitnessed fall. LEFT hip pain. Comparison: Radiographs of the same date. Technique: Multidetector CT pelvis without contrast. Multiplanar reformation with bone algorithm. Report: Unremarkable visualized pelvic bowel loops. Negative for ascites or free air within the [id number]-etus. Small fat-containing indirect RIGHT inguinal hernia without inflammatory change. Unremarkable visualized distal ureters as well as the urinary bladder. Post hysterectomy. Unremarkable adnexal regions. Negative for lymphadenopathy. Atherosclerotic calcification of normal diameter visualized aortic bifurcation and iliac arteries. Normal hip joint alignment. Negative for hip or pelvic fracture or pelvic joint diastases. Mild osteophytosis and mild to moderate superior joint space narrowing at both hips. Lumbar sacral spine degenerative spondylosis and facet joint osteoarthritis. Moderate anterior and middle column inferior endplate osteoporotic compression fracture at L4 and milder anterior column compression fracture at the superior endplate of L5 without compelling acute features. 5.6 cm AP by 3.3 cm transverse by 6.1 cm cephalocaudal loculated hematoma within the subcutaneous tissue plane superficial to the RIGHT hip greater trochanter. Surrounding soft tissue edema. IMPRESSION: 1. No CT evidence for hip or pelvic fracture. 2. Moderate anterior and middle column inferior endplate osteoporotic compression fracture at L4 and milder anterior column compression fracture at the superior endplate of L5 without compelling acute features. 3. 5.6 cm AP by 3.3 cm transverse by 6.1 cm cephalocaudal loculated hematoma within the subcutaneous tissue plane superficial to the RIGHT hip greater trochanter. Surrounding soft tissue edema.
--- NOTE | 2017-05-13 08:59 | PN ---
Progress Note - Progress Note Date of Service: 05/11/17 Note: Urine culture grew Escherichia coli over 100,000. Patient was not placed on antibiotics prior to discharge. Will await sensitivities Nothing further at this time. Kristy Wolfe PA-C
--- NOTE | 2017-05-14 09:02 | PN ---
Progress Note - Progress Note Date of Service: 05/14/17 Note: Called edith and patient already on cipro by primary which is sensitive to. already sent script for Oshiboreed which told edith to cancel as cipro with work for the uti. no further action needed.
== END 2017-05-11 03:36 | disposition home or self-care (01) ==
LOC: ED 00:02
DX: S70.01XA Contusion of right hip, initial encounter (principal); W19.XXXA Unspecified fall, initial encounter; Y92.9 Unspecified place or not applicable; N39.0 Urinary tract infection, site not specified; B96.20 Unspecified Escherichia coli [E. coli] as the cause of diseases classified elsewhere; Z88.0 Allergy status to penicillin
CPT/HCPCS: 36415; 71045; 72192; 80053; 81003; 81015; 85025; 85610; 85730; 86850; 86900; 86901; 87077; 87086; 87186; 93005; 96374; 96375; 99284; J2270; J2405

== ENCOUNTER 2017-12-23 02:20 | Emergency (ER) | payer MEDICARE, BC ==
--- NOTE | 2017-12-23 02:37 | ED ---
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 Pt lives in a [facility], and the home hospice rn found her drooling which is not her baseline. Pt is confused, and non-verbal with EMS. PMHx: hypotension. - History Of Current Complaint Chief Complaint: EDAltMentalStatus Stated Complaint: AMS Time Seen by Provider: 12/23/17 02:26 Hx Obtained From: EMS Onset/Duration: Unknown Timing: Constant - Allergies/Home Medications Allergies/Adverse Reactions: Allergies Allergy/AdvReac Type Severity Reaction Status Date / Time Penicillins Allergy Unknown Verified 12/23/17 03:38 Reaction Details Home Medications: Home Medications Calcium Polycarbophil TAB* [Fibercon TAB*] 625 mg PO BID 12/23/17 [History Confirmed 12/23/17] Furosemide 1 tab PO SEE INSTRUCTIONS 12/23/17 [History Confirmed 12/23/17] PMH/Surg Hx/FS Hx/Imm Hx Previously Healthy: No Endocrine/Hematology History: Denies: Hx Anticoagulant Therapy, Hx Blood Disorders Cardiovascular History: Reports: Hx Hypertension Sensory History: Denies: Hx Contacts or Glasses - none with pt, Hx Hearing Aid Opthamlomology History: Denies: Hx Contacts or Glasses - none with pt Neurological History: Reports: Hx Dementia - Cancer History Cancer Type, 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 - Immunization History Date of Tetanus Vaccine: unk Date of Influenza Vaccine: unk Infectious Disease History: No Infectious Disease History: Denies: Traveled Outside the [place] in Last 30 Days - Family History Known Family History: Positive: Unknown - Unable to obtain secondary to dementia /poor historian - Social History Occupation: Retired - OTHER Lives: Assisted Living Alcohol Use: None Hx Substance Use: No Substance Use Type: Reports: None Hx Tobacco Use: No Smoking Status (MU): Never Smoked Tobacco Review of Systems - ROS Summary Review of Systems Summary: LEVEL 5 CAVEAT: ROS LIMITED DUE TO PT CONDITION, AMS Psychological: Other - pos: AMS, confused All Other Systems Reviewed And Are Negative: No Physical Exam - Summary Physical Exam Summary: Appearance: Well-appearing, Well-nourished. Pt is somnolent, but easily arousable. Skin: Warm, dry, no obvious rash Eyes: sclera anicteric, no conjunctival pallor ENT: mucous membranes moist, pharynx appears normal Neck: Supple, nontender Respiratory: Clear to auscultation, no signs of respiratory distress Cardiovascular: Normal S1, S2. No murmurs. Normal distal pulses in tibial and radial bilaterally. Abdomen: Soft, nontender, normal active bowel sounds present Musculoskeletal: Normal, Strength/ROM Intact Neurological: No focal motor deficits. Psych: Pt is confused. Triage Information Reviewed: Yes Vital Signs On Initial Exam: Initial Vitals Temp Pulse Resp BP Pulse Ox 97.6 F 89 18 207/94 96 12/23/17 02:28 12/23/17 02:28 12/23/17 02:28 12/23/17 02:28 12/23/17 02:28 Vital Signs Reviewed: Yes - Bg Coma Scale Best Eye Response: 3 - To Speech Best Motor Response: 5 - Purposeful Movement Best Verbal Response: 4 - Confused Coma Scale Total: 12 Diagnostics - Vital Signs Vital Signs Temp Pulse Resp BP Pulse Ox 12/23/17 02:28 97.6 F 89 18 207/94 96 - Laboratory Result Diagrams: 12/23/17 02:34 12/23/17 02:34 Lab Statement: Any lab studies that have been ordered have been reviewed, and results considered in the medical decision making process. - CT Braint CT CT Interpretation: No Acute Changes - No acute findings, prior strokes visible. Pending official report. CT Interpretation Completed By: ED Physician - EKG 0228 Cardiac Rate: NL - 90bpm EKG Rhythm: Sinus Rhythm Re-Evaluation - Re-Evaluation 1 Re-Evaluation Time: 03:43 Altered Mental Statu Course/Dx - Course Course Of Treatment: Pt is an 87 y/o F presents to ED with altered mental status. Pt is somnulent but easily arousable, confused, shows no focal motor deficits. Brain CT is unremarkable for acute findings. UA results show 2+ RBC, 3+ WBC, 1+ protein, 3+ leukocyte esterase, and low specific gravity. Pt will be discharged back to nursing facility. - Diagnoses Provider Diagnoses: Metabolic encephalopathy, Urinary tract infection Discharge - Sign-Out/Discharge Documenting (check all that apply): Patient Departure - DC - Discharge Plan Condition: Good Disposition: HOME Prescriptions: Nitrofurantoin Monohyd/M-Cryst [Macrobid 100 mg Capsule] 100 mg PO BID #14 cap Patient Education Materials: Urinary Tract Infection in Older Adults (ED) Referrals: Megan Breaux MD [Primary Care Provider] - - Billing Disposition and Condition Condition: GOOD Disposition: Home - Attestation Statements Document Initiated by Scribe: Yes Documenting Scribe: Chyna Gill Provider For Whom Scribe is Documenting (Include Credential): Dr. Wei Stone MD Scribe Attestation: I, Chyna Gill, scribed for Dr. Wei Stone MD on 12/23/17 at 0645. Scribe Documentation Reviewed: Yes Provider Attestation: The documentation as recorded by the Chyna manning accurately reflects the service I personally performed and the decisions made by me, Dr. Wei Stone MD
[2017-12-23 02:48] LABS: ABS Basophils 0 10^3/ul (0-0.2); ABS Eosinophils 0.1 10^3/ul (0-0.6); ABS Lymphocytes 0.8 10^3/ul (1.0-4.8); ABS Monocytes 0.5 10^3/ul (0-0.8); ABS Neutrophils 9.3 10^3/ul (1.5-7.7); ABS Nucleated RBC 0 10^3/ul; Eosinophil % 0.6 % (0-6); Hematocrit 42 % (35-47); Hemoglobin 14.6 g/dl (12.0-16.0); Lymphocyte % 7.1 % (25-47); Mean Corpuscular HGB Conc 35 g/dl (31-36); Mean Corpuscular Hemoglobin 38 pg (27-31); Mean Corpuscular Volume 110 fL (80-97); Mean Platelet Volume 7.2 um3 (7.4-10.4); Nucleated Red Blood Cells % 0; Platelet Count 273 10^3/ul (150-450); Red Blood Count 3.81 10^6/ul (4.00-5.40); Red Cell Distribution Width 13 % (10.5-15); White Blood Count 10.7 10^3/ul (3.5-10.8)
[2017-12-23 03:02] LABS: EGFR Non-African American 81.5 (>60)
--- NOTE | 2017-12-23 03:16 | RAD ---
EXAM: CT Head Without Intravenous Contrast CLINICAL HISTORY: 87 years old, female; Signs and symptoms; Altered mental status/memory loss and weakness, facial TECHNIQUE: Axial computed tomography images of the head/brain without intravenous contrast. All CT scans at this facility use at least one of these dose optimization techniques: automated exposure control; mA and/or kV adjustment per patient size (includes targeted exams where dose is matched to clinical indication); or iterative reconstruction. 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 Small chronic lacunar infarct of the left basal ganglia. There are severe periventricular and subcortical lucencies consistent with chronic microvascular ischemic changes. Flaherty-white differentiation is maintained. No hemorrhage. Ventricles: Ventricles and sulci are prominent consistent with age appropriate parenchymal volume loss. Bones/joints: Unremarkable. No acute fracture. Soft tissues: Unremarkable. Sinuses: Unremarkable as visualized. No acute sinusitis. Mastoid air cells: Unremarkable as visualized. No mastoid effusion. Other findings: No hemorrhage. IMPRESSION: No acute intracranial abnormality. 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 Chronic microvascular ischemic changes. If symptoms persist short interval MRI can be obtained, if there are no contraindications for obtaining MRI.
[2017-12-23 03:43] LABS: Urine Appearance Cloudy; Urine Blood Negative (Negative); Urine Color Yellow; Urine Ketones Negative (Negative); Urine Protein 1+(30 mg/dL) (Negative); Urine Red Blood Cell 2+(6-10/hpf) (Absent); Urine Specific Gravity 1.006 (1.010-1.030); Urine Urobilinogen Negative (Negative); Urine White Blood Cell 3+(>20/hpf) (Absent)
[2017-12-23] MEDS ORDERED: cefTRIAXone VIAL(*) 1,000 MG VIAL IM ONE (04:13)
[2017-12-23] MEDS ORDERED: Lidocaine 1%* 5 ML VIAL ONE (04:16)
[2017-12-23 05:39] VITALS: BP 176/88
== END 2017-12-23 05:37 | disposition home or self-care (01) ==
LOC: ED 02:20
DX: G93.41 Metabolic encephalopathy (principal); N39.0 Urinary tract infection, site not specified
CPT/HCPCS: 36415; 70450; 80053; 81003; 81015; 82550; 83605; 84484; 85025; 87077; 87086; 87186; 93005; 96372; 99284; J0696

== ENCOUNTER 2018-06-19 10:19 | Inpatient (IN) | payer MEDICARE, BC ==
--- NOTE | 2018-06-19 10:33 | ED ---
Lower Extremity - HPI Summary HPI Summary: Patient is an 87 y/o female brought in by EMS who presents to the ED c/o RLE pain. She was sent here from [facility]. The nursing staff there noticed the patient seemed to be in pain and she was unable to bear weight on her RLE. They deny any known injury or fall. Patient has no pain at rest, but with movement clutches her right hip. She holds her right leg in flexion. PMHx arthritis. Patient is a level 5 caveat due to her dementia. - History of Current Complaint Chief Complaint: EDExtremityLower Stated Complaint: RIGHT LEG PAIN PER EMS Time Seen by Provider: 06/19/18 10:22 Hx Obtained From: EMS, Medical Records Hx From Patient Unobtainable Due To: Dementia Mechanism Of Injury: Unknown Onset/Duration: Still Present Pain Intensity: 0 Pain Scale Used: 0-10 Numeric Timing: Constant Location: Is Discrete @ - RLE Aggravating Factor(s): Weight Bearing Able to Bear Weight: No Related History: Other - hx arthritis - Allergies/Home Medications Allergies/Adverse Reactions: Allergies Allergy/AdvReac Type Severity Reaction Status Date / Time Penicillins Allergy Unknown Verified 06/19/18 10:27 Reaction Details Home Medications: Home Medications Furosemide 20 mg PO SEE INSTRUCTIONS 06/19/18 [History Confirmed 06/19/18] Metoprolol Tartrate 50 mg PO BID 06/19/18 [History Confirmed 06/19/18] PMH/Surg Hx/FS Hx/Imm Hx Endocrine/Hematology History: Denies: Hx Anticoagulant Therapy, Hx Blood Disorders Cardiovascular History: Reports: Hx Hypertension Musculoskeletal History: Reports: Hx Arthritis, Hx Back Problems Sensory History: Denies: Hx Contacts or Glasses - none with pt, Hx Eye Injury, Hx Legally Blind, Hx Vision Problem, Hx Hearing Aid, Hx Hearing Problem Opthamlomology History: Denies: Hx Contacts or Glasses - none with pt, Hx Eye Injury, Hx Legally Blind, Hx Vision Problem Neurological History: Reports: Hx Dementia, Hx Transient Ischemic Attacks (TIA) - Cancer History Cancer Type, 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 - Immunization History Date of Tetanus Vaccine: unk Date of Influenza Vaccine: unk Infectious Disease History: Unable to Obtain/Confirm Infectious Disease History: Denies: Hx Clostridium Difficile, Hx Hepatitis, Hx of Known/Suspected MRSA, Hx Shingles, Hx Tuberculosis, Traveled Outside the [place] in Last 30 Days - Family History Known Family History: Positive: Unknown - Unable to obtain secondary to dementia /poor historian - Social History Alcohol Use: None Hx Substance Use: No Substance Use Type: Reports: None Hx Tobacco Use: No Smoking Status (MU): Never Smoked Tobacco Review of Systems Positive: Arthralgia - right hip, Decreased ROM - unable to bear weight on RLE All Other Systems Reviewed And Are Negative: No Physical Exam - Summary Physical Exam Summary: Appearance: Well appearing, no pain distress Skin: warm, dry, reflects adequate perfusion, bruise to lower portion of left em Head/face: normal Eyes: EOMI, CRISTA ENT: mucous membranes moist Neck: supple, non-tender Respiratory: CTA, breath sounds present Cardiovascular: RRR, pulses symmetrical Abdomen: non-tender, soft Bowel Sounds: present Musculoskeletal: left em non-tender, able to bear weight on left side, no left hip, ankle, or knee tenderness, no popping of right knee, tenderness at greater trochanter, holds leg in flexion Neuro: sensory motor intact, alert but not oriented, moves all extremities, only moans verbally Triage Information Reviewed: Yes Vital Signs On Initial Exam: Initial Vitals Temp Pulse Resp BP Pulse Ox 99.5 F 68 17 157/62 94 06/19/18 10:23 06/19/18 10:23 06/19/18 10:23 06/19/18 10:23 06/19/18 10:23 Vital Signs Reviewed: Yes Completion Of Physical Exam Limited Due To: Dementia Diagnostics - Vital Signs Vital Signs Temp Pulse Resp BP Pulse Ox 06/19/18 10:23 99.5 F 68 17 157/62 94 - Laboratory Result Diagrams: 06/19/18 11:30 06/19/18 16:59 Lab Statement: Any lab studies that have been ordered have been reviewed, and results considered in the medical decision making process. - Radiology Hip/Pelvis XR Radiology Interpretation Completed By: Radiologist Summary of Radiographic Findings: Subcapital fracture of the RIGHT femoral neck with varus angulation. ED physician reviewed radiology report. Neck XR Radiology Interpretation Completed By: Radiologist Summary of Radiographic Findings: PERIPHERAL ARTERIAL DISEASE. NO ACUTE OSSEOUS INJURY. IF SYMPTOMS PERSIST, RECOMMEND REPEAT IMAGING. ED physician reviewed radiology report. - EKG 11:30 Cardiac Rate: NL - 79 bpm EKG Rhythm: Sinus Rhythm ST Segment: Non-Specific Summary of EKG Findings: Nl axis Lower Extremity Course/Dx - Course Course Of Treatment: Nurse's notes reviewed. unable to bear weight on her right hip. No definite history for trauma. Patient is unable to contribute to history due to dementia. Right femoral neck fracture seen on x- ray. Preop laboratories obtained. Discussed with orthopedics Will take OR pending consultation with the family. Admit through hospitalist. - Diagnoses Differential Diagnosis/HQI/PQRI: Positive: Contusion, Fracture (Closed), Gout, Infection, Septic Arthritis, Sprain, Strain Provider Diagnoses: Dementia, Fracture of femoral neck, right - Physician Notifications Discussed Care Of Patient With: Adrianne Baer Time Discussed With Above Provider: 11:17 Instructed by Provider To: Admit As Inpatient - Dr. Baer accepts pt for admission. At 11:[address] Mcadams who will consult with the pt on the floor. Discharge - Sign-Out/Discharge Documenting (check all that apply): Patient Departure - Admit Patient Received Moderate/Deep Sedation with Procedure: No - Discharge Plan Condition: Fair Disposition: ADMITTED TO [facility] - Billing Disposition and Condition Condition: FAIR Disposition: Admitted to [facility] - Attestation Statements Document Initiated by Scribe: Yes Documenting Scribe: Jovita Hawkins Provider For Whom Erick is Documenting (Include Credential): Rufino Acevedo MD Scribe Attestation: Jovita Sanchez, scribed for Rufino Acevedo MD on 06/19/18 at 2155. Scribe Documentation Reviewed: Yes Provider Attestation: The documentation as recorded by the Jovita manning accurately reflects the service I personally performed and the decisions made by me, Rufino Acevedo MD Status of Scribe Document: Viewed
[2018-06-19] MEDS ORDERED: NS 0.9% 1000 ML** 1,000 ML IV ONE (11:07)
[2018-06-19] MEDS ORDERED: Morphine 4 MG/ML VIAL (1 ml) 4 MG/ML VIAL IV ONE (11:09)
[2018-06-19] MEDS: Ibuprofen ADULT LIQ* 600 MG/30 ML UDC PO ONE ×2 (11:47→11:49)
[2018-06-19 12:01] LABS: ABS Basophils 0 10^3/ul (0-0.2); ABS Eosinophils 0 10^3/ul (0-0.6); ABS Lymphocytes 0.8 10^3/ul (1.0-4.8); ABS Monocytes 0.4 10^3/ul (0-0.8); ABS Neutrophils 8.9 10^3/ul (1.5-7.7); ABS Nucleated RBC 0 10^3/ul; Eosinophil % 0.3 %; Hematocrit 41 % (33-41); Hemoglobin 14.1 g/dL (12.0-16.0); Lymphocyte % 7.7 %; Mean Corpuscular HGB Conc 34 g/dL (31-36); Mean Corpuscular Hemoglobin 36 pg (27-31); Mean Corpuscular Volume 105 fL (80-97); Mean Platelet Volume 8.4 fL (7.4-10.4); Nucleated Red Blood Cells % 0; Platelet Count 251 10^3/uL (150-450); Red Blood Count 3.92 10^6 /uL (3.70-4.87); Red Cell Distribution Width 14 % (10.5-15); White Blood Count 10.1 10^3/uL (3.5-10.8)
[2018-06-19 12:01] LABS: Urine Appearance Cloudy; Urine Blood 3+ (Negative); Urine Color Yellow; Urine Ketones Negative (Negative); Urine Protein Negative (Negative); Urine Specific Gravity 1.015 (1.010-1.030); Urine Urobilinogen Negative (Negative)
[2018-06-19 12:02] LABS: Urine Bilirubin Negative (Negative); Urine Glucose Negative (Negative); Urine Nitrite Negative (Negative)
[2018-06-19 12:08] LABS: Activated Partial Thrombo Time 28.7 seconds (26.0-36.3); INR 0.98 (0.77-1.02)
[2018-06-19 12:10] LABS: Albumin/Globulin Ratio 1.4 (1-3); BUN/Creatinine Ratio 18.6 (8-20); Calcium 9.1 mg/dL (8.6-10.3); EGFR African American 116.1 (>60); Globulin 2.8 g/dL (2-4); Total Bilirubin 0.7 mg/dL (0.2-1.0); Total Protein 6.8 g/dL (6.4-8.9)
[2018-06-19 12:11] LABS: Troponin I 0.01 ng/mL (<0.04)
[2018-06-19 12:24] LABS: Urine Squamous Epithelial Cell Present (Absent)
[2018-06-19 12:25] LABS: Urine Bacteria 1+ (Absent); Urine Red Blood Cell 3+(>10/hpf) (Absent); Urine White Blood Cell 1+(6-10/hpf) (Absent)
[2018-06-19] MEDS: NS 0.9% 1000 ML** 1,000 ML IV SCH ×2 (13:17→13:18)
[2018-06-19] MEDS ORDERED: Morphine 4 MG/ML VIAL (1 ml) 4 MG/ML VIAL IV PRN (13:21)
[2018-06-19] MEDS ORDERED: Loperamide CAP* 2 MG PO PRN (14:07)
[2018-06-19] MEDS ORDERED: Acetaminophen TAB* 325 MG PO PRN (14:07)
[2018-06-19] MEDS: cefTRIAXone(*) 1 GM in NS 0.9% 50 ML* 50 ML IVPB SCH (14:38)
--- NOTE | 2018-06-19 15:16 | CONS ---
ORTHOPEDIC CONSULTATION NOTE: DATE OF CONSULT: 06/19/18 LOCATION: ED. ATTENDING SURGEON: Pavithra Mcadams MD Thank you for this orthopedic consultation. CHIEF COMPLAINT: Right hip pain. HISTORY OF PRESENT ILLNESS: Ms. Serrano is an 87-year-old demented female who is a resident of [facility]. She had an unwitnessed fall. After this, she expressed right hip pain and was unable to ambulate at all. This is 10/10 pain making her unable to move the right lower extremity. She is a demented patient , on the [facility]. She was brought to [facility] and found to have a right femoral neck fracture. She is unable to give good history. Therefore, my history is mostly from the chart. PAST MEDICAL HISTORY: Frequent falls, dementia, hypertension, osteoarthritis, CLL. PAST SURGICAL HISTORY: Unknown. MEDICATIONS: 1. Furosemide 20 mg p.o. daily. 2. Metoprolol 50 mg p.o. b.i.d. ALLERGIES: PENICILLIN. FAMILY HISTORY: Unknown. SOCIAL HISTORY: No tobacco, alcohol, or recreational drugs. She lives in a long term facility with [id number] care. Her son, Phi Serrano, is her point of contact. REVIEW OF SYSTEMS: Difficult to obtain. The patient reports some pain with any movement of the right hip. She is alert and awake. Otherwise, I am unable to assess any positive review of systems in the 14 points. PHYSICAL EXAM: Vitals: Temperature 99.8, pulse 80, blood pressure 184/76. General: The patient is a well-nourished female, in no apparent distress, alert and oriented x1. She does respond to her name. She is not verbal with me today. She is in a position in the bed. Gait is not assessed. HEENT: Atraumatic, normocephalic. Neck: Trachea midline. Neck is supple. No adenopathy. No palpable lymph nodes. Heart: S1, S2. Lungs: Clear to auscultation in all lung pfeiffer. Abdomen: Soft, nontender, nondistended. Bilateral upper extremities: The patient's skin is intact. Scattered ecchymoses. No open wounds. I can move her arms without any obvious bony instability. 2+ palpable radial pulses. She does not follow commands for motor or sensory exam. Right lower extremity: Any movement of this leg causes extreme pain. She is holding the leg flexed and internally rotated. No open wounds. Some distal 1+ pitting edema up to the mid calf. Scattered ecchymoses. She does not follow motor or sensory exam. 2+ palpable DP pulse. Left lower extremity: No obvious bony tenderness to palpation. She does not follow motor or sensory exam. Skin is intact without any open wounds. 1+ pitting edema to mid calf with scattered ecchymoses. 2+ palpable DP pulse. DIAGNOSTIC STUDIES/LAB DATA: Radiographs: Have multiple plain films of the patient's right hip and femur, which show a displaced femoral neck fracture. Labs: Hematocrit 41, white blood cells 10, platelets 251. INR 0.98. Sodium 136, potassium 3.0, chloride 97, BUN and creatinine 11 and 0.59, glucose 128, lactic acid 3.5. ASSESSMENT AND PLAN: Ms. Serrano is an 87-year-old demented female, status post fall this morning. She has a displaced femoral neck fracture. I would recommend a right hip hemiarthroplasty for treatment of this as the best medical option. I have tried to contact her son, who is her surrogate decision maker and I awaiting a call back. She is currently cleared for surgery by the hospitalist group. She is being given fluids and her potassium is being replaced. A CT of her head is ordered since she had unwitnessed fall. I will follow along with the patient. As soon as we have some contact with her surrogate decision maker, her son and an available OR, we will proceed. [id number]/[facility] #: [id number] GIGI
[2018-06-19] MEDS ORDERED: NS 0.9% 50 ML* 50 ML IV ONE (15:32)
--- NOTE | 2018-06-19 15:41 | HP ---
HISTORY AND PHYSICAL: ADDENDUM: The patient is on bedrest. IV hydralazine added for blood pressure systolic over 180. Continue to monitor blood pressure as the patient has been hypertensive. She was systolically 184 in the emergency department. CHIARA DUNLAP [id number]/[facility] #: [id number] GIGI
[2018-06-19] MEDS: KCL 20 MEQ/100 ML IVPREMIX* 20 MEQ/100 ML BAG IV SCH ×3 (15:49→23:01)
--- NOTE | 2018-06-19 16:39 | HP ---
CC: Dr. Megan Breaux; Dr. Mcadams* HISTORY AND PHYSICAL: DATE OF ADMISSION: 06/19/18 PRIMARY CARE PROVIDER: Dr. Megan Breaux. OTHER PROVIDERS: Dr. Mcadams. ATTENDING PHYSICIAN: Dr. Adrianne Baer* (dictated by CHIARA Ibarra). CHIEF COMPLAINT: Unable to bear weight on right lower extremity. HISTORY OF PRESENT ILLNESS: Consuelo Serrano is an 87-year-old female with past medical history significant for dementia, hypertension, and history of TIA, who was presenting in the ED from [facility] because the nursing staff noticed that she was not bearing weight on her right lower extremity. Nursing staff reports that the patient normally ambulates independently with a walker. She was observed walking independently with her walker yesterday. Today, she was unable to do so. There have been no witnessed falls. Nursing staff reports that it is unlikely that the patient would be able to get off the floor without assistance; therefore, they believe that an unwitnessed fall is unlikely. Nursing staff also reports that the patient is typically nonverbal, though will hum to herself frequently. She has a son named Phi Serrano, who is her surrogate decision maker. His phone number is [phone]. Much of the history is gathered from nursing staff at [facility] and [facility], as the patient is unable to participate in history collection. EMERGENCY DEPARTMENT COURSE: Vital signs upon arrival to the emergency department: Temperature 99.5 Fahrenheit, pulse rate 68, respiratory rate 17, O2 saturation 94% on room air, blood pressure 157/62. The patient was given 1 L of normal saline and 4 mg of morphine. Pertinent labs include lactic acid of 3.5, potassium of 3.0, and a positive urinalysis. Therefore, the hospitalists were asked to evaluate the patient for admission. PAST MEDICAL HISTORY: Hypertension, dementia, CLL, polycythemia, thrombocytosis , history of TIA, history of DVT. PAST SURGICAL HISTORY: Unobtainable. HOME MEDICATIONS: 1. Metoprolol tartrate 50 mg p.o. b.i.d. 2. Tylenol 650 mg p.o. q.4 hours p.r.n. pain. 3. Loperamide 2 mg p.o. q.4 hours p.r.n. constipation. 4. Lisinopril 20 mg p.o. daily. 5. Furosemide 20 mg p.o. on Mondays and . 6. FiberCon 625 mg p.o. b.i.d. 7. Aggrenox 25/200 mg p.o. b.i.d. 8. Hydroxyurea 500 mg p.o. daily. 9. Donepezil 5 mg p.o. q.h.s. 10. Cholecalciferol 50,000 units p.o. monthly. 11. Amlodipine 5 mg p.o. daily. ALLERGIES: PENICILLIN (reaction unknown). FAMILY HISTORY: Unobtainable. SOCIAL HISTORY: The patient lives at [facility]. She has a son named Phi, who is her surrogate decision maker. REVIEW OF SYSTEMS: The patient is unable to participate in review of systems. PHYSICAL EXAMINATION HEENT: Head: Atraumatic and normocephalic. No ecchymosis or open wounds. Eyes: The patient does not open left eye. PERRL. Sclerae anicteric. Conjunctivae clear. ENT: Mucous membranes moist. NECK: No tenderness to palpation to cervical spine spinous processes. Unable to assess range of motion. Neck is supple. RESPIRATORY: Crackles auscultated in bilateral bases. Poor lung exam due to the patient unable to cooperate with exam. CARDIO: Regular rate and rhythm without murmurs, rubs, or gallops. EXTREMITIES: No edema, clubbing, or calf tenderness bilaterally. NEURO: The patient is alert and oriented x0. The patient is unable to cooperate with neurological exam. Moves upper extremities equally. SKIN: No ecchymosis throughout. DIAGNOSTIC STUDIES/LAB DATA: White blood cell count 10.1, hemoglobin 14.1, hematocrit 41, platelet count 251. Sodium 136, potassium 3.0, chloride 97, carbon dioxide 24, BUN 11, creatinine 0.59, glucose 128, lactic acid 3.5. INR 0.98, PTT 28.7. Calcium 9.1. Bilirubin 0.7, AST 26, ALT 33. Troponin 0.01. Albumin 4.0. Urinalysis: Specific gravity 1.015, blood 3+, ketones negative, protein negative, nitrite negative, bilirubin negative, urobilinogen negative, leukocyte esterase 2+, white blood cell count 1+, red blood cell count 3+, squamous epithelial cells present, amorphous crystals present, urine bacteria +1 , urine glucose negative. On 06/19/18, hip/pelvis x-ray, impression: "Subcapital fracture of the right femoral neck with varus angulation." On 06/19/18, knee x-ray, impression: "Peripheral arterial disease. No acute osseous injury. If symptoms persist, recommend repeat imaging." Chest x-ray on 06/19/18, impression: "Low lung volumes. No active cardiopulmonary disease." On 06/19/18, EKG: Sinus rhythm at 72 beats per minute. Abnormal axis, likely left ventricular hypertrophy. No ischemic changes. No T-wave elevations. ASSESSMENT AND PLAN: Consuelo Serrano is an 87-year-old female with past medical history significant for hypertension, dementia, and history of transient ischemic attack, who presented from [facility] from ED because nursing staff noticed the patient was unable to bear weight on the right lower extremity. The patient was found to have right hip fracture and will be admitted to inpatient for: 1. Hip fracture- The patient presented unable to bear weight on right lower extremity. Per nursing staff at [facility], the patient was seen ambulating alone with walker yesterday, which is her baseline. X-ray confirms subcapital fracture of right femoral neck. Dr. Mcadams has been consulted and has seen the patient. Both myself and Dr. Mcadams have been unable to reach the son for consent. Surgery is planned for tonight if the son is reached for consent. Holding home Aggrenox in anticipation of surgery tonight. Restarting aggrenox will be at the discretion of orthopedic surgery. The patient is NPO in anticipation of surgery today. The patient is at high risk for pneumonia postoperatively. She is unable to participate in incentive spirometry and thus pulmonary toileting will be important. The patient is placed on bed rest until otherwise determined by orthopedic surgery. Additionally, the cause of the fracture is unknown. It does not appear as if the fracture is pathological on x-ray. Nursing staff reports that the patient did not have a witnessed fall, and they believe that it is unlikely that she would have been able to pick herself up off the floor if she had fallen unwitnessed. However, the suspicion for fall is too high. Given that a neurological exam was incomplete due to lack of the patient's ability to cooperate, a CT brain is warranted to rule out any intracranial hemorrhage. 2. Positive urinalysis- Urinalysis was collected with straight cath in the ED and bacteria are present in addition to positive leukocyte esterase and blood. It is per surgical protocol that the patient be empirically covered for urinary tract infection. Ceftriaxone has been initiated. To discontinue ceftriaxone if urine culture is negative. Although the patient has a penicillin allergy with unknown reaction in chart, the patient has received ceftriaxone for urinary tract infection in the past. Additionally, the patient has had multiple urinary tract infections documented in the EMR that have been sensitive to ceftriaxone. 3. Hypokalemia- The patient is admitted with a potassium of 3.0. 20 mEq of potassium chloride was given 3 times for a total of 60 mEq. We will recheck BMP and continue to monitor. EKG without signs of enlarged T-waves. The patient is admitted on telemetry. Can consider discontinuing telemetry with potassium repletion. Cause of hypokalemia is likely due to poor nutrition, although albumin is within normal limits. Potential cause could also be home med of furosemide, though she only takes twice a week 4. Elevated lactic acid- Lactic acid is elevated at 3.5 on admission. The patient already received a liter of normal saline in the emergency department. The patient does not have any other positive systemic inflammatory response syndrome criteria. We will recheck lactic acid in 4 hours. It is possible that this is a laboratory error. Chronic conditions: 5. Hypertension- We will continue home metoprolol, lisinopril, furosemide twice a week, and amlodipine. The patient is hypertensive in the emergency department. We will continue to monitor. Hydralazine prn SBP>180 has been added. 6. Dementia- The patient is nonverbal at baseline and is unable to communicate with history and unable to participate with physical exam. We will continue home donepezil. 7. Chronic lymphocytic leukemia, polycythemia- We will continue home hydroxyurea. 8. History of transient ischemic attack- Holding home Aggrenox in the setting of expectant surgery. We will start at the direction of Orthopedic Surgery. 9. History of deep venous thrombosis- Nursing staff at [facility] reports that the patient's H and P from admission to [facility] in 2015 lists a history of deep venous thrombosis, though the date of the incident is unknown. The patient does not have any home medicine indicating treatment for deep venous thrombosis. See DVT prophylaxis below. 10. FEN- The patient is NPO currently as expecting surgery later today. Otherwise, she receives a modified thickness diet at [facility]. We will order soft diet after surgery. Repleting potassium as previously mentioned. We will continue to monitor. 11. DVT prophylaxis- The patient is highest risk for deep venous thrombosis. Chemical prophylaxis is not indicated at this time because orthopedic surgery is expected later today. SCDs have been started. After surgery, Orthopedic Surgery will dictate further DVT prophylaxis and whether Aggrenox will be restarted. 12. Code status- The patient is DNR per records from [facility]. Have been unable confirm DNR status with son due to inability to reach him by phone. Therefore unable to update MOLST. TIME SPENT: Approximately 50 minutes were spent on this admission. This case has been reviewed by my attending, Dr. Adrianne Baer, and she agrees with this assessment and plan. CHIARA IBARRA [id number]/CPS #: [id number]/CPS #: [id number] GIGI
[2018-06-19 17:24] LABS: BUN/Creatinine Ratio 21.4 (8-20); Calcium 8.7 mg/dL (8.6-10.3); EGFR African American 171.9 (>60); EGFR Non-African American 142.1 (>60); Potassium 3.1 mmol/L (3.5-5.0)
[2018-06-19] MEDS: Heparin VIAL(*) 5000 UNITS/ML VIAL (FIVE THOUSAND) SUBCUT SCH (19:27)
[2018-06-19 19:51] LABS: INR 1.08 (0.77-1.02)
[2018-06-19] MEDS ORDERED: Donepezil TAB* 5 MG PO SCH (21:00)
[2018-06-19] MEDS ORDERED: KCL 20 MEQ/100 ML IVPREMIX* 20 MEQ/100 ML BAG IV SCH (21:00)
[2018-06-19] MEDS: Metoprolol Tartrate TAB* 50 mg PO SCH (21:54)
[2018-06-19] MEDS: Calcium Polycarbophil TAB* 625 MG PO SCH (21:54)
[2018-06-20] MEDS: Heparin VIAL(*) 5000 UNITS/ML VIAL (FIVE THOUSAND) SUBCUT SCH (00:06)
[2018-06-20 01:05] LABS: BUN/Creatinine Ratio 13.6 (8-20); Calcium 8.7 mg/dL (8.6-10.3); EGFR African American 162.9 (>60); EGFR Non-African American 134.6 (>60); Potassium 3.8 mmol/L (3.5-5.0)
[2018-06-20] MEDS: hydrALAZINE IV* 20 MG/ML VIAL IV SLOW PU PRN ×2 (01:11→10:10)
[2018-06-20] MEDS ORDERED: Metoprolol Tartrate IV* 1 MG/ML 5 ML VIAL ONE (02:14)
--- NOTE | 2018-06-20 02:20 | PN ---
Progress Note - Progress Note Date of Service: 06/20/18 Note: CAT called - Patient heard groaning and then thrashing over her upper body, change in respirations. Vitals: SBP 240, Exam: Eyes deviated to left, snorous respirations, lungs diminished but clear. Unresponsive. Glucose: 170. Code Aamir called Shortly after arrival - Patient appeared back near baseline. Eyes no longer deviated, no longer snorous respirations. Moving extremities. Spoke with Son, HCP, Phi Serrano, concern for seizure/CVA. He confirmed that she is a DNR/ DNI. Head CT showed No acute changes. ASA 300 NM given. Patient noted to have temp 100.8. Blood cultures and urine obtained. Due to concern for seizure and rapid resolution of symptoms patient does not appear to be a candidate for tpa. Awaiting call back from neurology - second page went out. Continue neuro checks, seizure precautions. Will order EEG and MRI of brain. Will give Keppra 1 gm and follow up with neurology.
[2018-06-20] MEDS ORDERED: Aspirin SUPP* 300 MG PR ONE (02:43)
[2018-06-20 03:11] LABS: ABS Basophils 0 10^3/ul (0-0.2); ABS Eosinophils 0 10^3/ul (0-0.6); ABS Lymphocytes 0.8 10^3/ul (1.0-4.8); ABS Monocytes 0.5 10^3/ul (0-0.8); ABS Neutrophils 12.1 10^3/ul (1.5-7.7); ABS Nucleated RBC 0 10^3/ul; Eosinophil % 0.4 %; Hematocrit 41 % (33-41); Lymphocyte % 5.9 %; Mean Corpuscular HGB Conc 34 g/dL (31-36); Mean Corpuscular Hemoglobin 36 pg (27-31); Mean Corpuscular Volume 105 fL (80-97); Mean Platelet Volume 7.9 fL (7.4-10.4); Nucleated Red Blood Cells % 0; Platelet Count 275 10^3/uL (150-450); Red Blood Count 3.89 10^6 /uL (3.70-4.87); Red Cell Distribution Width 14 % (10.5-15); White Blood Count 13.5 10^3/uL (3.5-10.8)
[2018-06-20 03:17] LABS: Activated Partial Thrombo Time 27.9 seconds (26.0-36.3); INR 1.06 (0.77-1.02)
[2018-06-20] MEDS: Acetaminophen SUPP* 650 MG SUPP PR PRN ×2 (03:22→16:25)
[2018-06-20 03:24] LABS: Albumin 3.8 g/dL (3.2-5.2); Albumin/Globulin Ratio 1.3 (1-3); BUN/Creatinine Ratio 12.3 (8-20); Calcium 8.9 mg/dL (8.6-10.3); EGFR African American 120.8 (>60); EGFR Non-African American 99.9 (>60); Potassium 3.3 mmol/L (3.5-5.0); Total Bilirubin 1.2 mg/dL (0.2-1.0); Total Protein 6.8 g/dL (6.4-8.9)
[2018-06-20] MEDS ORDERED: levETIRAcetam IV* 1,000 MG in NS 0.9% 100 ML* 100 ML IVPB ONE (03:28)
[2018-06-20] MEDS ORDERED: NS 0.9% 1000 ML** 1,000 ML IV SCH (03:30)
[2018-06-20 04:08] LABS: Urine Appearance Cloudy; Urine Bacteria Absent (Absent); Urine Bilirubin Negative (Negative); Urine Blood 2+ (Negative); Urine Color Yellow; Urine Glucose 2+(150 mg/dL) (Negative); Urine Ketones 1+ (Negative); Urine Nitrite Negative (Negative); Urine Protein 1+(30 mg/dL) (Negative); Urine Red Blood Cell 2+(6-10/hpf) (Absent); Urine Specific Gravity 1.011 (1.010-1.030); Urine Squamous Epithelial Cell Present (Absent); Urine Urobilinogen Negative (Negative); Urine White Blood Cell 3+(>20/hpf) (Absent)
--- NOTE | 2018-06-20 07:45 | PN ---
Progress Note - Progress Note Date of Service: 06/20/18 SOAP: Subjective: Patient is sleeping, nad. Objective: Vital Signs: Temp Pulse Resp BP Pulse Ox 98.7 F 88 22 130/69 96 06/20/18 04:00 06/20/18 06:30 06/20/18 06:30 06/20/18 06:30 06/20/18 06:30 Laboratory Results - last 24 hr 06/19/18 06/19/18 06/19/18 11:30 11:30 11:30 WBC 10.1 RBC 3.92 Hgb 14.1 Hct 41 MCV 105 H MCH 36 H MCHC 34 RDW 14 Plt Count 251 MPV 8.4 Neut % (Auto) 88.3 Lymph % (Auto) 7.7 [place] % (Auto) 3.6 Eos % (Auto) 0.3 Baso % (Auto) 0.1 Absolute Neuts (auto) 8.9 H Absolute Lymphs (auto) 0.8 L Absolute Monos (auto) 0.4 Absolute Eos (auto) 0 Absolute Basos (auto) 0 Absolute Nucleated RBC 0 Nucleated RBC % 0 INR (Anticoag Therapy) 0.98 APTT 28.7 Patient Temperature ABG pH ABG pH (Temp Correct) ABG pCO2 ABG pCO2 (Temp Corrct ABG pO2 ABG pO2 (Temp Correct ABG HCO3 ABG O2 Saturation ABG Base Excess Respiration Rate O2 Delivery Device Ventilator Type Vent Mode FiO2 Inspiratory Time PEEP Pressure Support Pressure Control EPAP IPAP BiPAP Sodium 136 Potassium 3.0 L Chloride 97 L Carbon Dioxide 24 Anion Gap 15 H BUN 11 Creatinine 0.59 Est GFR ( Amer) 116.1 Est GFR (Non-Af Amer) 96.0 BUN/Creatinine Ratio 18.6 Glucose 128 H POC Glucose (mg/dL) Lactic Acid Calcium 9.1 Total Bilirubin 0.70 AST 26 ALT 33 Alkaline Phosphatase 74 Troponin I 0.01 Total Protein 6.8 Albumin 4.0 Globulin 2.8 Albumin/Globulin Ratio 1.4 Urine Color Urine Appearance Urine pH Ur Specific [place] Urine Protein Urine Ketones Urine Blood Urine Nitrate Urine Bilirubin Urine Urobilinogen Ur Leukocyte Esterase Urine WBC (Auto) Urine RBC (Auto) Ur Squamous Epith Cells Amorphous Crystals Urine Bacteria Urine Glucose Blood Type Antibody Screen 06/19/18 06/19/18 06/19/18 11:30 11:30 11:41 WBC RBC Hgb Hct MCV MCH MCHC RDW Plt Count MPV Neut % (Auto) Lymph % (Auto) [place] % (Auto) Eos % (Auto) Baso % (Auto) Absolute Neuts (auto) Absolute Lymphs (auto) Absolute Monos (auto) Absolute Eos (auto) Absolute Basos (auto) Absolute Nucleated RBC Nucleated RBC % INR (Anticoag Therapy) APTT Patient Temperature ABG pH ABG pH (Temp Correct) ABG pCO2 ABG pCO2 (Temp Corrct ABG pO2 ABG pO2 (Temp Correct ABG HCO3 ABG O2 Saturation ABG Base Excess Respiration Rate O2 Delivery Device Ventilator Type Vent Mode FiO2 Inspiratory Time PEEP Pressure Support Pressure Control EPAP IPAP BiPAP Sodium Potassium Chloride Carbon Dioxide Anion Gap BUN Creatinine Est GFR ( Amer) Est GFR (Non-Af Amer) BUN/Creatinine Ratio Glucose POC Glucose (mg/dL) Lactic Acid 3.5 H* Calcium Total Bilirubin AST ALT Alkaline Phosphatase Troponin I Total Protein Albumin Globulin Albumin/Globulin Ratio Urine Color Yellow Urine Appearance Cloudy Urine pH 5 Ur Specific [place] 1.015 Urine Protein Negative Urine Ketones Negative Urine Blood 3+ A Urine Nitrate Negative Urine Bilirubin Negative Urine Urobilinogen Negative Ur Leukocyte Esterase 2+ A Urine WBC (Auto) 1+(6-10/hpf) A Urine RBC (Auto) 3+(>10/hpf) A Ur Squamous Epith Cells Present A Amorphous Crystals Present A Urine Bacteria 1+ A Urine Glucose Negative Blood Type A Positive Antibody Screen Negative 06/19/18 06/19/18 06/19/18 16:59 16:59 19:35 WBC RBC Hgb Hct MCV MCH MCHC RDW Plt Count MPV Neut % (Auto) Lymph % (Auto) [place] % (Auto) Eos % (Auto) Baso % (Auto) Absolute Neuts (auto) Absolute Lymphs (auto) Absolute Monos (auto) Absolute Eos (auto) Absolute Basos (auto) Absolute Nucleated RBC Nucleated RBC % INR (Anticoag Therapy) 1.08 H APTT Patient Temperature ABG pH ABG pH (Temp Correct) ABG pCO2 ABG pCO2 (Temp Corrct ABG pO2 ABG pO2 (Temp Correct ABG HCO3 ABG O2 Saturation ABG Base Excess Respiration Rate O2 Delivery Device Ventilator Type Vent Mode FiO2 Inspiratory Time PEEP Pressure Support Pressure Control EPAP IPAP BiPAP Sodium 134 L Potassium 3.1 L Chloride 99 L Carbon Dioxide 23 Anion Gap 12 H BUN 9 Creatinine 0.42 L Est GFR ( Amer) 171.9 Est GFR (Non-Af Amer) 142.1 BUN/Creatinine Ratio 21.4 H Glucose 118 H POC Glucose (mg/dL) Lactic Acid 1.4 Calcium 8.7 Total Bilirubin AST ALT Alkaline Phosphatase Troponin I Total Protein Albumin Globulin Albumin/Globulin Ratio Urine Color Urine Appearance Urine pH Ur Specific [place] Urine Protein Urine Ketones Urine Blood Urine Nitrate Urine Bilirubin Urine Urobilinogen Ur Leukocyte Esterase Urine WBC (Auto) Urine RBC (Auto) Ur Squamous Epith Cells Amorphous Crystals Urine Bacteria Urine Glucose Blood Type Antibody Screen 06/20/18 06/20/18 06/20/18 00:37 02:10 02:16 WBC RBC Hgb Hct MCV MCH MCHC RDW Plt Count MPV Neut % (Auto) Lymph % (Auto) [place] % (Auto) Eos % (Auto) Baso % (Auto) Absolute Neuts (auto) Absolute Lymphs (auto) Absolute Monos (auto) Absolute Eos (auto) Absolute Basos (auto) Absolute Nucleated RBC Nucleated RBC % INR (Anticoag Therapy) APTT Patient Temperature Not Reportable ABG pH 7.27 L ABG pH (Temp Correct) Not Reportable ABG pCO2 31 L ABG pCO2 (Temp Corrct Not Reportable ABG pO2 102 H ABG pO2 (Temp Correct Not Reportable ABG HCO3 16.0 L ABG O2 Saturation 99.2 H ABG Base Excess -11.4 L Respiration Rate Not Reportable O2 Delivery Device nc4 Ventilator Type Not Reportable Vent Mode Not Reportable FiO2 4 Inspiratory Time Not Reportable PEEP Not Reportable Pressure Support Not Reportable Pressure Control Not Reportable EPAP Not Reportable IPAP Not Reportable BiPAP Not Reportable Sodium 132 L Potassium 3.8 Chloride 99 L Carbon Dioxide 22 Anion Gap 11 BUN 6 Creatinine 0.44 L Est GFR ( Amer) 162.9 Est GFR (Non-Af Amer) 134.6 BUN/Creatinine Ratio 13.6 Glucose 121 H POC Glucose (mg/dL) 170 H Lactic Acid Calcium 8.7 Total Bilirubin AST ALT Alkaline Phosphatase Troponin I Total Protein Albumin Globulin Albumin/Globulin Ratio Urine Color Urine Appearance Urine pH Ur Specific [place] Urine Protein Urine Ketones Urine Blood Urine Nitrate Urine Bilirubin Urine Urobilinogen Ur Leukocyte Esterase Urine WBC (Auto) Urine RBC (Auto) Ur Squamous Epith Cells Amorphous Crystals Urine Bacteria Urine Glucose Blood Type Antibody Screen 06/20/18 06/20/18 06/20/18 03:00 03:00 03:00 WBC 13.5 H RBC 3.89 Hgb 14.0 Hct 41 MCV 105 H MCH 36 H MCHC 34 RDW 14 Plt Count 275 MPV 7.9 Neut % (Auto) 90.0 Lymph % (Auto) 5.9 [place] % (Auto) 3.5 Eos % (Auto) 0.4 Baso % (Auto) 0.2 Absolute Neuts (auto) 12.1 H Absolute Lymphs (auto) 0.8 L Absolute Monos (auto) 0.5 Absolute Eos (auto) 0 Absolute Basos (auto) 0 Absolute Nucleated RBC 0 Nucleated RBC % 0 INR (Anticoag Therapy) 1.06 H APTT 27.9 Patient Temperature ABG pH ABG pH (Temp Correct) ABG pCO2 ABG pCO2 (Temp Corrct ABG pO2 ABG pO2 (Temp Correct ABG HCO3 ABG O2 Saturation ABG Base Excess Respiration Rate O2 Delivery Device Ventilator Type Vent Mode FiO2 Inspiratory Time PEEP Pressure Support Pressure Control EPAP IPAP BiPAP Sodium 131 L Potassium 3.3 L Chloride 98 L Carbon Dioxide 18 L Anion Gap 15 H BUN 7 Creatinine 0.57 Est GFR ( Amer) 120.8 Est GFR (Non-Af Amer) 99.9 BUN/Creatinine Ratio 12.3 Glucose 192 H POC Glucose (mg/dL) Lactic Acid Calcium 8.9 Total Bilirubin 1.20 H AST 23 ALT 27 Alkaline Phosphatase 76 Troponin I Total Protein 6.8 Albumin 3.8 Globulin 3.0 Albumin/Globulin Ratio 1.3 Urine Color Urine Appearance Urine pH Ur Specific [place] Urine Protein Urine Ketones Urine Blood Urine Nitrate Urine Bilirubin Urine Urobilinogen Ur Leukocyte Esterase Urine WBC (Auto) Urine RBC (Auto) Ur Squamous Epith Cells Amorphous Crystals Urine Bacteria Urine Glucose Blood Type Antibody Screen 06/20/18 06/20/18 03:00 03:30 WBC RBC Hgb Hct MCV MCH MCHC RDW Plt Count MPV Neut % (Auto) Lymph % (Auto) [place] % (Auto) Eos % (Auto) Baso % (Auto) Absolute Neuts (auto) Absolute Lymphs (auto) Absolute Monos (auto) Absolute Eos (auto) Absolute Basos (auto) Absolute Nucleated RBC Nucleated RBC % INR (Anticoag Therapy) APTT Patient Temperature ABG pH ABG pH (Temp Correct) ABG pCO2 ABG pCO2 (Temp Corrct ABG pO2 ABG pO2 (Temp Correct ABG HCO3 ABG O2 Saturation ABG Base Excess Respiration Rate O2 Delivery Device Ventilator Type Vent Mode FiO2 Inspiratory Time PEEP Pressure Support Pressure Control EPAP IPAP BiPAP Sodium Potassium Chloride Carbon Dioxide Anion Gap BUN Creatinine Est GFR ( Amer) Est GFR (Non-Af Amer) BUN/Creatinine Ratio Glucose POC Glucose (mg/dL) Lactic Acid 4.7 H* Calcium Total Bilirubin AST ALT Alkaline Phosphatase Troponin I Total Protein Albumin Globulin Albumin/Globulin Ratio Urine Color Yellow Urine Appearance Cloudy Urine pH 6.0 Ur Specific [place] 1.011 Urine Protein 1+(30 mg/dl) A Urine Ketones 1+ A Urine Blood 2+ A Urine Nitrate Negative Urine Bilirubin Negative Urine Urobilinogen Negative Ur Leukocyte Esterase 1+ A Urine WBC (Auto) 3+(>20/hpf) A Urine RBC (Auto) 2+(6-10/hpf) A Ur Squamous Epith Cells Present A Amorphous Crystals Urine Bacteria Absent Urine Glucose 2+(150 mg/dl) A Blood Type Antibody Screen RLE - flexed, distally 2+dp pulse. skin intact. Assessment: 87 yo F s/p fall with R femoral neck fracture. Overnight had a seizure, some HTN and tachycardia. Plan: Vitals stable at this time. EEG, MRI ordered for today. Will follow. If cleared please contact me so I can discuss surgery with family. Recommend R hip wyatt if she remains stable for pain control.
[2018-06-20] MEDS ORDERED: Famotidine IV* 10 MG/ML 2 ML (20 mg) IV ONE (09:00)
[2018-06-20] MEDS: KCL 20 MEQ/100 ML IVPREMIX* 20 MEQ/100 ML BAG IV SCH ×2 (09:27→11:59)
[2018-06-20] MEDS: amLODIPine TAB* 5 MG PO SCH (09:28)
[2018-06-20] MEDS: Calcium Polycarbophil TAB* 625 MG PO SCH ×2 (09:28→21:12)
[2018-06-20] MEDS: HydroxyUREA CAP* 500 MG CAP PO SCH (09:28)
[2018-06-20] MEDS: Metoprolol Tartrate TAB* 50 mg PO SCH ×2 (09:28→21:12)
[2018-06-20] MEDS ORDERED: Labetalol IV* 5 MG/ML 20 ML VIAL IV PUSH ONE (13:33)
--- NOTE | 2018-06-20 14:11 | EEG ---
ELECTROENCEPHALOGRAPHY: DATE OF STUDY: 06/20/18 DATE READ: 06/20/18 MEDICATIONS: 1. Acetaminophen. 2. Amlodipine. 3. Calcium. 4. Rocephin. 5. Aricept. 6. Furosemide. 7. Hydralazine. 8. Hydroxyurea. 9. Levetiracetam. 10. Lisinopril. 11. Loperamide. 12. Metoprolol. 13. Morphine. CLINICAL PROBLEM: Ms. Consuelo Serrano is an 87-year-old with advanced dementia, who developed witnessed seizure-like activity. This EEG was requested to evaluate for epileptiform abnormalities or electrographic seizures. CLINICAL STATE: Waking and drowsy. REPORT: The most prominent features of this recording were intermittent higher amplitude with some periods of low-voltage brief suppression of the background over the left frontotemporal region lasting for 1-2 seconds throughout the recording. Also, there were rare, higher amplitude, sharp epileptiform discharges seen 1-2 times over the entire recording and was maximal at the left frontotemporal region at F7 and T3. Otherwise, throughout the recording, the background had some retained organization and discernible anterior-posterior voltage and frequency gradients. There was poorly sustained slow posterior dominant rhythm of 6 Hz, but the majority of recording consisted of diffuse medium amplitude polymorphic 3-7 Hz delta and theta range slowing. Hyperventilation and photic stimulation were not performed. EKG showed normal sinus rhythm. Throughout the recording, there were no electrographic seizures. The attenuation of the occipital rhythm accompanied drowsiness. CLINICAL IMPRESSION: This is an abnormal waking and drowsy EEG due to the presence of diffuse slowing with poorly sustained posterior dominant rhythm, left frontotemporal slowing with low-voltage suppression with superimposed rare sharp epileptiform discharges in the left frontotemporal region. These findings are suggestive of a mild-moderate encephalopathy which can be seen in toxic- metabolic encephalopathy, neurodegenerative disorders, or post-ictal state. The focal slowing and discharges are suggestive of focal neuronal dysfunction and an area of increased epileptogenic potentials emanating from the left frontotemporal region. There were no electrographic seizures. [id number] #: [id number] [facility] C[facility]ERSamy
[2018-06-20] MEDS: cefTRIAXone(*) 1 GM in NS 0.9% 50 ML* 50 ML IVPB SCH (15:02)
--- NOTE | 2018-06-20 16:06 | CONS ---
NEUROLOGY CONSULTATION NOTE: DATE OF CONSULT: 06/20/18. CONSULTING PROVIDER: Nani Rosenbaum MD. REASON FOR CONSULT: Suspected seizure. CHIEF COMPLAINT: The patient is nonverbal. HISTORY OF PRESENT ILLNESS: Ms. 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 Emergency Department on with inability to bear weight and right lower extremity weakness. The patient presented from [facility]. The history was obtained by reviewing the electronic medical record as the patient is nonverbal at this time. She was found to have a subcapital fracture of the right femoral neck with varus angulation on hip x-ray. She was being evaluated for surgery. She was also found to have a suspected urinary tract infection an was started antibiotic therapy with ceftriaxone. Code monge was initiated early this morning at approximately 2:14 a.m. Neurology was paged, but unfortunately I was unable to respond at the time. The patient was found by the bedside nurse at approximately 2:10 a.m. to be groaning and yelling out loudly. Upon evaluation, the patient had increasing restlessness described by the bedside nurse and upper body began to thrash in bed. She was looking distance and her eyes were back to the back of the head. She began foaming at the mouth, then eyes deviated towards the left side. This lasted for a few minutes. The patient was transported to CAT scan, where there was no evidence of any intracranial hemorrhage or clear evidence of a new stroke. Prior to this incident on the evening of 06/19/18 the patient was described as confused, nonverbal, makes eye contact, and is easily arousable. The patient was describe as fidgeting with telemetry wire. The admitting provider, Esthela Blank, described the patient as alert, oriented x0 and nonverbal. The patient was sent from the surgical unit to the ICU for close monitoring after the CAT scan. After the event, the patient was making purposeful movement and according to the bedside nurse stated her name. She was loaded with IV levetiracetam 1000 units. An EEG and an MRI was ordered. The patient was also hypertensive and febrile and she was given Tylenol early this morning. Her code status was changed to DNR/DNI. I evaluated the patient today. She has her eyes closed tightly. She does not make any purposeful sound; however, she is easily alerted an she deviates head to noise. She is nonverbal. Unable to obtain history from the patient. I have reviewed the laboratory results. The patient has WBC of 13.5, hemoglobin of 14, hematocrit of 41, platelet count of 275. INR is 1.06. Sodium 131, potassium 3.3, chloride of 98, carbon dioxide of 18, anion gap of 15, creatinine 0.57. Lactic acid 4.7, but decreased to 0.8 and urinalysis positive for pyuria of 1+ bacteria, 1+ wbc's that increased to 3+ on the most recent UA. Urine culture is pending. It is important to note that the patient was taken off Aggrenox for presumed surgical fixation of the hip fracture. PAST MEDICAL HISTORY: Obtained from the chart. Hypertension, dementia, CLL, polycythemia, thrombocytosis, history of ischemic stroke, history of DVT. HOME MEDICATIONS: 1. Aggrenox one capsule b.i.d. 2. Hydroxyurea 500 mg p.o. daily. 3. Calcium polycarbophil 625 mg p.o. b.i.d. 4. Vitamin D3 at 50,000 units p.o. monthly. 5. Acetaminophen 650 mg p.o. q.4 hours as needed. 6. Donepezil 5 mg p.o. at bedtime. 7. Loperamide 2 mg p.o. every 4 hours as needed. 8. Amlodipine 5 mg p.o. daily. 9. Lisinopril 20 mg p.o. daily. 10. Furosemide 20 mg p.o. please see instruction. 11. Metoprolol 50 mg p.o. b.i.d. ALLERGIES: PENICILLIN. FAMILY HISTORY: Unable to obtain due to the patient's cognitive status. SOCIAL HISTORY: The patient lives at [facility]. There is no history of tobacco or alcohol use. REVIEW OF SYSTEMS: Unable to obtain as the patient is nonverbal. PHYSICAL EXAM: Vital Signs: Temperature is 97.3, heart rate of 90, respiratory rate of 16, oxygen saturation of 97, blood pressure of 182/105. General: Critically ill appearing elderly female in no distress. She does not participate with the examiner. Head: Normocephalic, atraumatic. Eyes: Conjunctivae/corneas are clear. Neck is supple and symmetrical no evidence of Brudzinski or Kernig's sign. Extremities: No hammer toes or high arches. Skin : No skin lesions or lacerations. Psych: Not applicable. Neurological: Mental status: The patient is sleeping, but arouses and deviates her head towards the examiner. She does not open her eyes. Cranial nerves: Pupils equal, round, reactive to light. However, there is some subtle nystagmus towards the left side. Unable to assess full sensation. There is no evidence of facial droop. Motor examination: The patient withdrew by flexion in the elbows and knees to distal noxious stimuli in all 4 extremities symmetrically, less so on the right given the hip fracture. Reflexes are right/left trace throughout with absent at the ankles bilaterally and symmetrically. Unable to assess sensation, coordination, or gait due to the patient's poor mental status. ASSESSMENT: Ms. Consuelo Serrano is an 87-year-old female with history of advanced dementia and remote right hemispheric ischemic strokes, who is on Aggrenox, who presented with inability to bear weight and pain in the right lower extremity. She was found to have a right femur fracture. She was getting prepped for surgery, but unfortunately she developed increased confusion and witnessed seizure-like activity. She was loaded with levetiracetam. She is currently in what I suspect to be in a postictal state or toxic encephalopathy related to levetiracetam. We cannot entirely exclude an ischemic stroke in the left hemisphere worsening her aphasia and causing the transient left forced gaze palsy. However, given that she has advanced dementia , she would have never been candidate for IV TPA or even mechanical thrombectomy since her modified Levy score is high. She has no nuchal rigidity thus I don't suspect she has meningitis. RECOMMENDATIONS: I recommend a stat EEG. I spoke to Nelli (BAIL BONDSMAN) this morning who will be doing the study this morning. Please obtain an MRI of the brain without contrast to evaluate for any new ischemic strokes (less likely to show new stroke). The EEG will rule out any nonconvulsive status epilepticus and assess the agree of encephalopathy. Reduce the levetiracetam to 500 mg twice daily. She will most likely be on levetiracetam care home; however, we can reconsider this in the future since she does currently have a provoking factor, which is recent stressor due to hip fracture, and UTI. The patient does have a structural abnormality though (remote stroke) and that increases her risk for seizures. Continue antibiotic treatment for the UTI and change the antibiotic treatment depending on the cultures. Please consult PT/OT/SHORTS SIFTER to evaluate and treat. Once she recovers, reconsult orthopedic surgery to reassess the right hip fracture. Continue neuro checks every 1 hour for the next 24 hours. Please start her on IV fluids. Continue to hold Aggrenox at this time since the suspicion for stroke is low, and her presentation is most likely secondary to seizures. I have discussed these recommendation with Dr. Rosenbaum. I spent a total 65 minutes of critical care time evaluating the patient , obtaining the history, examining the patient, and discussing the treatment plan with the primary team and the ICU nurse. We will continue to follow. [id number]/CPS #: [id number] GIGI
[2018-06-20] MEDS ORDERED: hydrALAZINE IV* 20 MG/ML VIAL IV SLOW PU PRN (17:02)
--- NOTE | 2018-06-20 18:01 | PN ---
Subjective Interval History: Admitted yesterday. Had eventful night - seizure noted around 2 AM. Had thrashing of upper body with eyes deviated to L, with fever and SBP > 200. Head CT without acute changes and pt started on Keppra IV. Subsequent MRI in the morning without e/o acute stroke. EEG with diffuse slowing suggestive of mild- moderate encephalopathy - ddx includes toxic-metabolic, post-ictal, neurodegenerative disorders, with area of increased epileptogenic potential. Spoke with son, Phi Serrano, . Updated on results and plan. Son seems more amenable to pursuing possible hospice care on discharge. Doesn't feel comfortable making decision now given recent change, wants to see her in the morning and make a decision. Pt only responsive to pain on exam. Objective Active Medications: Acetaminophen (Tylenol Supp*) 650 mg NM Q6H PRN PRN Reason: FEVER/PAIN Last Admin: 06/20/18 16:25 Dose: 650 mg Amlodipine Besylate (Norvasc Tab*) 5 mg PO DAILY [facility] Last Admin: 06/20/18 09:28 Dose: Not Given Calcium Polycarbophil (Fibercon Tab*) 625 mg PO BID [facility] Last Admin: 06/20/18 09:28 Dose: Not Given Hydralazine HCl (Apresoline Iv*) 10 mg IV SLOW PU Q6H PRN PRN Reason: SYSTOLIC BP GREATER THAN:180 Hydroxyurea (Hydrea Cap*) 500 mg PO DAILY [facility] Last Admin: 06/20/18 09:28 Dose: Not Given Ceftriaxone Sodium 1 gm/ (Sodium Chloride) 50 mls @ 200 mls/hr IVPB Q24H [facility] Last Admin: 06/20/18 15:02 Dose: 200 mls/hr Levetiracetam (Keppra Iv Premix*) 500 mg in 100 mls @ 400 mls/hr IVPB Q12H [facility] Potassium Chloride/Dextrose (D5w 1/2 Ns Kcl 20 Meq 1000 Ml*) 1,000 mls @ 75 mls /hr IV PER RATE [facility] Lisinopril (Prinivil Tab*) 20 mg PO DAILY [facility] Morphine Sulfate (Morphine 4 Mg/Ml Vial (1 Ml)) 3 mg IV Q4H PRN PRN Reason: PAIN Vital Signs - 8 hr 06/20/18 06/20/18 06/20/18 10:00 10:01 10:07 Temperature Pulse Rate 93 92 Respiratory 16 16 22 Rate Blood Pressure 182/105 190/88 (mmHg) O2 Sat by Pulse 97 98 Oximetry 06/20/18 06/20/18 06/20/18 10:31 11:00 11:30 Temperature Pulse Rate 99 91 99 Respiratory 16 22 23 Rate Blood Pressure 150/59 164/69 169/78 (mmHg) O2 Sat by Pulse 99 96 96 Oximetry 06/20/18 06/20/18 06/20/18 12:00 12:01 12:30 Temperature 99.8 F Pulse Rate 96 101 113 Respiratory 23 27 18 Rate Blood Pressure 178/76 171/85 (mmHg) O2 Sat by Pulse 97 97 95 Oximetry 06/20/18 06/20/18 06/20/18 13:00 13:30 14:26 Temperature Pulse Rate 122 93 Respiratory 21 Rate Blood Pressure 187/89 200/90 (mmHg) O2 Sat by Pulse 96 92 Oximetry 06/20/18 06/20/18 06/20/18 14:29 15:00 15:30 Temperature Pulse Rate 91 96 91 Respiratory 28 25 Rate Blood Pressure 167/79 177/94 169/81 (mmHg) O2 Sat by Pulse 93 93 92 Oximetry 06/20/18 06/20/18 06/20/18 16:00 16:02 16:17 Temperature 101.7 F Pulse Rate 92 91 Respiratory 25 24 Rate Blood Pressure 160/78 (mmHg) O2 Sat by Pulse 94 94 Oximetry Oxygen Devices in Use Now: Nasal Cannula Appearance: nontoxic, mildly uncomfortable, nonverbal, lying on side Ears/Nose/Mouth/Throat: Mucous Membranes Moist Neck: - - supple, easily able to passively move chin to chest without grimace Respiratory: Clear to Auscultation Cardiovascular: RRR Extremities: No Edema Skin: No Rash or Ulcers Neurological: - - will response to pain stimuli, will turn head towards loud voice, keeps eyes closed tight, no obvious facial droop Result Diagrams: 06/20/18 03:00 06/20/18 03:00 Microbiology and Other Data: Microbiology 06/20/18 03:03 Nasal Screen MRSA (PCR) - Final Nasal Mrsa Not Detected Assess/Plan/Problems-Billing 87W with dementia and nonverbal at baseline, HTN, h/o CVA, CLL, polycythemia, presenting from [facility] after noted to not bear weight on R leg, pt found to have fever, positive lactate, with hip xray showing subcapital fracture of R femoral neck. Admitted for pain control, possible palliative hemiarthroplasty, and treatment of unknown infection (UA not definitive and no UCx), but hospital course c/b seizure, worsening mental status. - Patient Problems (1) Hip fracture Comment: - currently not a candidate for the OR, given acute complications while admitted - appreciate Ortho following - pain control with morphine IV 3mg q4h prn, may need higher dose given like significant pain from fracture (2) Fever Comment: Urine seems most likely source but UA not completely convincing. Pending blood and urine cultures. No h/o cough or SOB. No rash. Son mentions gastroenteritis from pt's facility, but would be unlikely to cause such persistent fevers, and pt has no n/v/d. - cont CTX IV - if continues to have fevers tomorrow, will broaden empiric treament (3) Seizure Comment: High risk given h/o stroke. Now with fevers. Meningitis will remain on differential but currently exam not concerning for this. Now mental status much worse - could be post-ictal vs medication side effect. - cont Keppra 500mg q12h IV - appreciate Neuro recs - maintenance fluids - D5 1/2 normal with 20 mEQ KCl (4) Hypertension Comment: Suspect high BP in house related to significant pain from fracture. Now unable to take PO after seizure. - will control with hydralazine IV prns - address pain (5) Dementia Comment: - cont to re-orient (6) DNR (do not resuscitate) Comment: Will have discussion with son on 06/21 - may prefer comfort measures and hospice if mental status not improved by then.
[2018-06-20] MEDS ORDERED: D5W 1/2 NS KCl 20 Meq 1000 ML* 1,000 ML IV SCH (19:00)
--- NOTE | 2018-06-20 19:52 | PN ---
Progress Note - Progress Note Date of Service: 06/20/18 Note: Patient persistently febrile. No clear source, possibly her urine. In setting of seizure like activity last evening, will start acyclovir. Recommend contacting anesthesia in AM to do LP if HSV encephalitis remains on ddx.
[2018-06-20] MEDS: levETIRAcetam 500 MG IVPREMIX* 500 MG/100 ML BAG IVPB SCH (21:09)
[2018-06-20] MEDS: Enoxaparin(*) 40 MG/0.4 ML SYR SUBCUT SCH (21:09)
[2018-06-20] MEDS: D5W 1/2 NS KCl 20 Meq 1000 ML* 1,000 ML IV SCH (21:10)
[2018-06-20] MEDS: Acyclovir IV(*) 500 MG in NS 0.9% 100 ML* 100 ML IVPB SCH (22:11)
[2018-06-21] MEDS: Morphine 4 MG/ML VIAL (1 ml) 4 MG/ML VIAL IV PRN ×4 (03:34→23:23)
[2018-06-21] MEDS: Acyclovir IV(*) 500 MG in NS 0.9% 100 ML* 100 ML IVPB SCH ×2 (05:37→14:06)
[2018-06-21 06:19] LABS: Hematocrit 36 % (33-41); Hemoglobin 12.5 g/dL (12.0-16.0); Mean Corpuscular HGB Conc 35 g/dL (31-36); Mean Corpuscular Hemoglobin 37 pg (27-31); Mean Corpuscular Volume 105 fL (80-97); Mean Platelet Volume 7.5 fL (7.4-10.4); Platelet Count 199 10^3/uL (150-450); Red Blood Count 3.43 10^6 /uL (3.70-4.87); Red Cell Distribution Width 14 % (10.5-15); White Blood Count 9.2 10^3/uL (3.5-10.8)
[2018-06-21 06:36] LABS: BUN/Creatinine Ratio 15.7 (8-20); Calcium 8.3 mg/dL (8.6-10.3); EGFR African American 95.3 (>60); EGFR Non-African American 78.8 (>60); Magnesium 1.7 mg/dL (1.9-2.7); Potassium 3.5 mmol/L (3.5-5.0)
[2018-06-21] MEDS: levETIRAcetam 500 MG IVPREMIX* 500 MG/100 ML BAG IVPB SCH ×2 (07:36→20:04)
[2018-06-21] MEDS: HydroxyUREA CAP* 500 MG CAP PO SCH (07:38)
[2018-06-21] MEDS: amLODIPine TAB* 5 MG PO SCH (07:38)
[2018-06-21] MEDS: Metoprolol Tartrate TAB* 50 mg PO SCH (07:38)
[2018-06-21] MEDS: Calcium Polycarbophil TAB* 625 MG PO SCH (07:38)
[2018-06-21] MEDS ORDERED: Lisinopril TAB* 10 MG PO SCH (09:00)
--- NOTE | 2018-06-21 09:55 | PN ---
Progress Note - Progress Note Date of Service: 06/21/18 SOAP: Subjective: Pt. is asleep, does not cooperate with exam. Objective: Vital Signs: Temp Pulse Resp BP Pulse Ox 98.2 F 94 16 155/49 96 06/21/18 07:28 06/21/18 07:35 06/21/18 07:54 06/21/18 07:28 06/21/18 07:28 Laboratory Results - last 24 hr 06/21/18 06/21/18 06:06 06:06 WBC 9.2 RBC 3.43 L Hgb 12.5 Hct 36 MCV 105 H MCH 37 H MCHC 35 RDW 14 Plt Count 199 MPV 7.5 Sodium 134 L Potassium 3.5 Chloride 104 Carbon Dioxide 22 Anion Gap 8 BUN 11 Creatinine 0.70 Est GFR ( Amer) 95.3 Est GFR (Non-Af Amer) 78.8 BUN/Creatinine Ratio 15.7 Glucose 131 H Calcium 8.3 L Magnesium 1.7 L BLE - 2 + dp pulses, skin intact, flexed into position. Assessment: 87 yo F with femoral neck fracture. Plan: Hip wyatt postponed because of seizure and fevers. Pt. continues to be intermittently febrile. Please call if she is a candidate for surgery Ortho to follow.
[2018-06-21] MEDS: D5W 1/2 NS KCl 20 Meq 1000 ML* 1,000 ML IV SCH ×2 (10:14→22:23)
--- NOTE | 2018-06-21 11:30 | PN ---
Subjective Date of Service: 06/21/18 Length of Stay: 2 Days Interval History: Reviewed chart, reviewed nursing notes. Spoke with nurse this am. No further seizure activity. The patient remains in pain, received morphine about 30 min ago. Somnolent, not following commands. Awakens to voice but falls immediately back asleep. Unable to provide any history Objective Active Medications: Acetaminophen (Tylenol Tab*) 650 mg PO Q4H PRN PRN Reason: FEVER/PAIN Acetaminophen (Tylenol Supp*) 650 mg DC Q6H PRN PRN Reason: FEVER/PAIN Last Admin: 06/20/18 16:25 Dose: 650 mg Amlodipine Besylate (Norvasc Tab*) 5 mg PO DAILY [facility] Last Admin: 06/21/18 07:38 Dose: Not Given Calcium Polycarbophil (Fibercon Tab*) 625 mg PO BID [facility] Last Admin: 06/21/18 07:38 Dose: Not Given Enoxaparin Sodium (Lovenox(*)) 40 mg SUBCUT Q24H [facility] Last Admin: 06/20/18 21:09 Dose: 40 mg Hydralazine HCl (Apresoline Iv*) 10 mg IV SLOW PU Q6H PRN PRN Reason: SYSTOLIC BP GREATER THAN:180 Hydroxyurea (Hydrea Cap*) 500 mg PO DAILY [facility] Last Admin: 06/21/18 07:38 Dose: Not Given Ceftriaxone Sodium 1 gm/ (Sodium Chloride) 50 mls @ 200 mls/hr IVPB Q24H [facility] Last Admin: 06/20/18 15:02 Dose: 200 mls/hr Levetiracetam (Keppra Iv Premix*) 500 mg in 100 mls @ 400 mls/hr IVPB Q12H [facility] Last Admin: 06/21/18 07:36 Dose: 400 mls/hr Potassium Chloride/Dextrose (D5w 1/2 Ns Kcl 20 Meq 1000 Ml*) 1,000 mls @ 100 mls/hr IV PER RATE [facility] Last Admin: 06/21/18 10:14 Dose: 100 mls/hr Acyclovir Sodium 500 mg/ (Sodium Chloride) 110 mls @ 110 mls/hr IVPB Q8H [facility] Last Admin: 06/21/18 05:37 Dose: 110 mls/hr Lisinopril (Prinivil Tab*) 20 mg PO DAILY [facility] Last Admin: 06/21/18 07:38 Dose: Not Given Metoprolol Tartrate (Lopressor Tab*) 50 mg PO BID [facility] Last Admin: 06/21/18 07:38 Dose: Not Given Morphine Sulfate (Morphine 4 Mg/Ml Vial (1 Ml)) 3 mg IV Q4H PRN PRN Reason: PAIN Last Admin: 06/21/18 10:13 Dose: 3 mg Vital Signs 06/20/18 06/20/18 06/20/18 11:30 12:00 12:01 Temperature 99.8 F Pulse Rate 99 96 101 Respiratory 23 23 27 Rate Blood Pressure 169/78 178/76 (mmHg) O2 Sat by Pulse 96 97 97 Oximetry 06/20/18 06/20/18 06/20/18 12:30 13:00 13:30 Temperature Pulse Rate 113 122 Respiratory 18 21 Rate Blood Pressure 171/85 187/89 200/90 (mmHg) O2 Sat by Pulse 95 96 Oximetry 06/20/18 06/20/18 06/20/18 14:26 14:29 15:00 Temperature Pulse Rate 93 91 96 Respiratory 28 Rate Blood Pressure 167/79 177/94 (mmHg) O2 Sat by Pulse 92 93 93 Oximetry 06/20/18 06/20/18 06/20/18 15:30 16:00 16:02 Temperature Pulse Rate 91 92 91 Respiratory 25 25 24 Rate Blood Pressure 169/81 160/78 (mmHg) O2 Sat by Pulse 92 94 94 Oximetry 06/20/18 06/20/18 06/20/18 16:17 18:10 19:08 Temperature 101.7 F 98.6 F Pulse Rate 103 Respiratory 20 16 Rate Blood Pressure 166/63 (mmHg) O2 Sat by Pulse 92 Oximetry 06/20/18 06/20/18 06/20/18 19:39 21:00 21:11 Temperature 98.0 F Pulse Rate 86 Respiratory 22 20 20 Rate Blood Pressure 132/53 (mmHg) O2 Sat by Pulse 97 Oximetry 06/21/18 06/21/18 06/21/18 03:09 03:34 06:54 Temperature 97.5 F Pulse Rate 103 Respiratory 24 20 16 Rate Blood Pressure 189/71 (mmHg) O2 Sat by Pulse 91 Oximetry 06/21/18 06/21/18 06/21/18 07:20 07:28 07:35 Temperature 98.2 F 98.2 F Pulse Rate 109 109 94 Respiratory 22 22 16 Rate Blood Pressure 155/49 155/49 (mmHg) O2 Sat by Pulse 96 96 Oximetry 06/21/18 06/21/18 07:54 10:13 Temperature Pulse Rate Respiratory 16 24 Rate Blood Pressure (mmHg) O2 Sat by Pulse Oximetry Intake and Output Last 24 Hours 06/19/18 06/20/18 06/21/18 06/22/18 06:59 06:59 06:59 06:59 Intake Total 727 1074 0 Output Total 1650 1500 Balance -923 -426 0 Weight 116 lb 6.465 oz Intake: IV Fluids 531 974 KEPPRA 100 NS (0.9%) 181 974 IVPB 176 100 K+ 176 KEPPRA 100 Oral 20 0 0 Output: Stephens 1650 1500 Other: # Bowel Movements 0 1 Estimated Stool Amount Small Oxygen Devices in Use Now: None Neurology Exam: General: Sleeping, briefly awakens but somnlent HEENT: Normocephelic/atraumatic, sclera anicteric, mucous membranes moist Chest: Clear to auscultation bilaterally Cardiovascular: Regular rate and rhythm without murmurs, rubs, gallops Abdomen: Soft, non-tender/non-distended Extremities: No clubbing, cyanosis, or edema Neurological Findings: Speech: No meaningful speech Cranial Nerve: PERRL, Face symmetric, difficult exam. Motor: W/D to pain, not following Sensation: WD to pain Deep Tendon Reflex: Difficult to assess No tremors or seizure like activity Result Diagrams: 06/21/18 06:06 06/21/18 06:06 Microbiology and Other Data: Microbiology 06/20/18 03:03 Nasal Screen MRSA (PCR) - Final Nasal Mrsa Not Detected Assessment/Plan 87 h/o s/p fall with right hip fracture. She has a history of prior CVA, HTN, polycythemia, CLL, dementia moderate to severe with fevers, positive lactate, on Abx, with seizure like activity and declining MS. --MRI shows no evidence for acute stroke. --Seizure likely related to underlying infection, fevers with predisposition and lowered baseline threshold likely secondary to prior stroke +/- dementia, both of which are risk factors. --Recommend continuing the Keppra at 500mg bid. Seizure precautions. Ativan for any prolonged seizure activity --Will continue to monitor but in the setting of acute pain control with MS, exams are difficult. At this point, there does not appear to be focality and MRI shows no evidence of new stroke --I will continue to follow along
[2018-06-21] MEDS: cefTRIAXone(*) 1 GM in NS 0.9% 50 ML* 50 ML IVPB SCH (15:07)
--- NOTE | 2018-06-21 17:34 | PN ---
Subjective Interval History: Pt started on IV acyclovir last evening given fevers, seizure earlier in the day , and still without culture data. Overnight remained afebrile and without further seizures. Today UCx positive for aerococcus urinae. After discussion with Neuro, it seems likely that seizure was from focal area of prior stroke (per EEG) and not viral encephalitis. Pt now has been afebrile over 24 hours, with last ever about 24 hours after starting CTX. On interview today, pt somewhat arousable to voice. Appears comfortable again in position. Per RN, failed swallow exam due to inability to follow commands. Discussion with son seems likely that he will pursue comfort care and hospice, but given recent changes, prefers to have another day to make decision to see if his mother will recover some of her function and again be an OR candidate. We discussed how this is unlikely, and it may cause unnecessary suffering at this point. He wanted to get in touch with case management to learn options for facilities for discharge. Objective Active Medications: Acetaminophen (Tylenol Supp*) 650 mg [place] Q6H PRN PRN Reason: FEVER/PAIN Last Admin: 06/20/18 16:25 Dose: 650 mg Enoxaparin Sodium (Lovenox(*)) 40 mg SUBCUT Q24H [facility] Last Admin: 06/20/18 21:09 Dose: 40 mg Hydralazine HCl (Apresoline Iv*) 10 mg IV SLOW PU Q6H PRN PRN Reason: SYSTOLIC BP GREATER THAN:180 Ceftriaxone Sodium 1 gm/ (Sodium Chloride) 50 mls @ 200 mls/hr IVPB Q24H [facility] Last Admin: 06/21/18 15:07 Dose: 200 mls/hr Levetiracetam (Keppra Iv Premix*) 500 mg in 100 mls @ 400 mls/hr IVPB Q12H [facility] Last Admin: 06/21/18 07:36 Dose: 400 mls/hr Potassium Chloride/Dextrose (D5w 1/2 Ns Kcl 20 Meq 1000 Ml*) 1,000 mls @ 100 mls/hr IV PER RATE [facility] Last Admin: 06/21/18 10:14 Dose: 100 mls/hr Morphine Sulfate (Morphine 4 Mg/Ml Vial (1 Ml)) 3 mg IV Q4H PRN PRN Reason: PAIN Last Admin: 06/21/18 15:00 Dose: 3 mg Vital Signs - 8 hr 06/21/18 06/21/18 06/21/18 10:13 11:03 11:32 Temperature 98.2 F Pulse Rate 101 Respiratory 24 24 18 Rate Blood Pressure 146/56 (mmHg) O2 Sat by Pulse 91 Oximetry 06/21/18 06/21/18 06/21/18 12:52 15:00 15:26 Temperature 98.2 F 97.8 F Pulse Rate 101 114 Respiratory 24 24 22 Rate Blood Pressure 146/56 146/56 (mmHg) O2 Sat by Pulse 91 91 Oximetry 06/21/18 06/21/18 15:33 15:55 Temperature Pulse Rate Respiratory 20 18 Rate Blood Pressure (mmHg) O2 Sat by Pulse Oximetry Appearance: chronically ill appearing, no acute distress, lying hunched and on side Ears/Nose/Mouth/Throat: Mucous Membranes Moist Respiratory: Clear to Auscultation Cardiovascular: RRR Abdominal: - - no grimmace to palpation, soft Extremities: No Edema Neurological: - - arouses to loud voice but cannot follow commands, grabs at this policy writer typist's arm Result Diagrams: 06/21/18 06:06 06/21/18 06:06 Microbiology and Other Data: Microbiology 06/20/18 03:03 Nasal Screen MRSA (PCR) - Final Nasal Mrsa Not Detected Assess/Plan/Problems-Billing 87W with dementia and nonverbal at baseline, HTN, h/o CVA, CLL, polycythemia, presenting from [facility] after noted to not bear weight on R leg, pt found to have fever, positive lactate, with hip xray showing subcapital fracture of R femoral neck. Admitted for pain control, possible hemiarthroplasty , and sepsis treatment, with hospital course c/b seizure (06/20), worsening mental status. - Patient Problems (1) Hip fracture Comment: - currently not a candidate for the OR, given acute complications while admitted - pain control with morphine IV 3mg q4h prn, may need higher dose given likely significant pain from fracture - Ortho consulted (2) Fever Comment: Aerococcus urinae on UCx. Seems CTX is appropriate - Urol Case Rep. 2017 Sep; 13: 2425 - cont CTX IV (06/19 - ) (3) Seizure Comment: High risk given h/o stroke. Then with fevers and acute pain/illness. Meningitis will remain on differential but currently exam not concerning for this. - cont Keppra 500mg q12h IV - appreciate Neuro recs (4) Dementia Comment: Now unable to take PO - cannot follow commands for speech & swallow. - cont to re-orient - maintenance fluids - D5 1/2 normal with 20 mEQ KCl (5) Hypertension Comment: Suspect high BP in house related to significant pain from fracture. Now unable to take PO after seizure. - will control with hydralazine IV prns - address pain (6) DNR (do not resuscitate) Comment: Status and Disposition: Inpatient floors. Son exploring hospice.
[2018-06-21] MEDS: Enoxaparin(*) 40 MG/0.4 ML SYR SUBCUT SCH (20:09)
[2018-06-22] MEDS: Morphine 4 MG/ML VIAL (1 ml) 4 MG/ML VIAL IV PRN ×2 (03:53→13:02)
[2018-06-22] MEDS: Acetaminophen SUPP* 650 MG SUPP PR PRN (03:54)
[2018-06-22 06:47] LABS: BUN/Creatinine Ratio 13.8 (8-20); Calcium 8.1 mg/dL (8.6-10.3); EGFR African American 103.8 (>60); EGFR Non-African American 85.8 (>60); Magnesium 1.7 mg/dL (1.9-2.7); Potassium 3.4 mmol/L (3.5-5.0)
[2018-06-22] MEDS: levETIRAcetam 500 MG IVPREMIX* 500 MG/100 ML BAG IVPB SCH ×2 (07:37→19:46)
[2018-06-22] MEDS ORDERED: Magnesium Sulfate 2 GM IV* 2 GM/50 ML BAG IVPB ONE (08:00)
[2018-06-22] MEDS: KCL 10 MEQ/50 ML IVPREMIX* 10 MEQ/50 ML BAG IV SCH ×6 (09:34→18:08)
--- NOTE | 2018-06-22 09:54 | PN ---
Subjective Date of Service: 06/22/18 Interval History: HOSPITALIST PROGRESS NOTE Patient seen and examined at bedside. Care reviewed and d/w Rebeca Bryant RN. Opens eyes when called, but does not follow commands or answer questions. Family History: Unchanged from Admission Social History: Unchanged from Admission Past Medical History: Unchanged from Admission Objective Active Medications: Acetaminophen (Tylenol Supp*) 650 mg [place] Q6H PRN PRN Reason: FEVER/PAIN Last Admin: 06/22/18 03:54 Dose: 650 mg Enoxaparin Sodium (Lovenox(*)) [address] [facility] Last Admin: 06/21/18 20:09 Dose: 40 mg Hydralazine HCl (Apresoline Iv*) 10 mg IV SLOW PU Q6H PRN PRN Reason: SYSTOLIC BP GREATER THAN:180 Last Admin: 06/21/18 23:34 Dose: 10 mg Ceftriaxone Sodium 1 gm/ (Sodium Chloride) 50 mls @ 200 mls/hr IVPB Q24H [facility] Last Admin: 06/21/18 15:07 Dose: 200 mls/hr Levetiracetam (Keppra Iv Premix*) 500 mg in 100 mls @ 400 mls/hr IVPB Q12H [facility] Last Admin: 06/22/18 07:37 Dose: 400 mls/hr Potassium Chloride/Dextrose (D5w 1/2 Ns Kcl 20 Meq 1000 Ml*) 1,000 mls @ 100 mls/hr IV PER RATE [facility] Last Admin: 06/21/18 22:23 Dose: 100 mls/hr Potassium Chloride (Potassium Chloride 10 Meq/50 Ml Ivpremix*) 10 meq in 50 mls @ 50 mls/hr IV Q1H [facility] Stop: 06/22/18 12:59 Last Admin: 06/22/18 09:34 Dose: 50 mls/hr Morphine Sulfate (Morphine 4 Mg/Ml Vial (1 Ml)) 3 mg IV Q4H PRN PRN Reason: PAIN Last Admin: 06/22/18 03:53 Dose: 3 mg Vital Signs - 8 hr 06/22/18 06/22/18 06/22/18 03:18 03:29 03:46 Temperature 99.7 F Pulse Rate 61 115 Respiratory 25 Rate Blood Pressure 172/64 172/68 (mmHg) O2 Sat by Pulse 95 Oximetry 06/22/18 06/22/1819 03:53 03:59 05:37 Temperature 101 F Pulse Rate 105 Respiratory 25 20 Rate Blood Pressure (mmHg) O2 Sat by Pulse Oximetry 06/22/18 06/22/18 07:42 07:52 Temperature 99.1 F Pulse Rate 99 Respiratory 20 20 Rate Blood Pressure (mmHg) O2 Sat by Pulse Oximetry Oxygen Devices in Use Now: None Appearance: Elderly lady lying in bed in NAD. Eyes: No Scleral Icterus Ears/Nose/Mouth/Throat: Mucous Membranes Moist Neck: Trachea Midline Respiratory: Symmetrical Chest Expansion and Respiratory Effort, Clear to Auscultation Cardiovascular: RRR - Normal S1 and S2 Abdominal: NL Sounds; No Tenderness; No Distention Extremities: No Edema Neurological: - - Opens eyes when called, doesn't follow commands Result Diagrams: 06/21/18 06:06 06/22/18 06:06 Assess/Plan/Problems-Billing Assessment: Mrs Serrano is an 87yo F with PMH of dementia and nonverbal at baseline, HTN, h/ o CVA, CLL, polycythemia, presenting from [facility] after noted to not bear weight on R leg. Found to have fever, positive lactate, with hip xray showing subcapital fracture of R femoral neck. Admitted for pain control, possible hemiarthroplasty, and sepsis treatment, with hospital course c/b seizure (06/20) and worsening mental status. - Patient Problems (1) Sepsis Comment: - Present on first 24h of admission with fever, tachycardia, and leukocytosis. - Source is UTI. (2) UTI (urinary tract infection) Comment: - Present on admission, not Stephens catheter related. - Urine culture grew Aerococcus - continue Ceftriaxone. (3) Seizure Comment: - W/u showed no evidence of new stroke, but at high risk given prior stroke and dementia lowering her seizure threshold. - Continue Keppra. - Neurology input appreciated. (4) Hip fracture Comment: - Currently not a candidate for surgery given acute events, including sepsis and seizure. - Continue pain management. - As per Dr Rosenbaum's note, son is exploring possibility of Hospice. (5) Hypertension Comment: - Likely high BP related to significant pain from fracture. Now unable to take PO after seizure. - Continue hydralazine IV prn. (6) Delirium Comment: - On top of dementia, worsened by Morphine necessary for pain. - Continue supportive care. (7) DVT prophylaxis Comment: - Lovenox. (8) DNR (do not resuscitate) Comment: Status and Disposition: Inpatient. With her comorbidities and current presentation her best option would be comfort care. Will await her son's decision.
--- NOTE | 2018-06-22 11:40 | PN ---
Progress Note - Progress Note Date of Service: 06/22/17 SOAP: Subjective: Pt. is demented, nonverbal. She is asleep in bed. Objective: Vital Signs: Temp Pulse Resp BP Pulse Ox 98.8 F 89 19 147/51 94 06/22/18 08:42 06/22/18 08:37 06/22/18 08:37 06/22/18 08:37 06/22/18 08:37 Laboratory Results - last 24 hr 06/22/18 06:06 Sodium 139 Potassium 3.4 L Chloride 109 Carbon Dioxide 24 Anion Gap 6 BUN 9 Creatinine 0.65 Est GFR ( Amer) 103.8 Est GFR (Non-Af Amer) 85.8 BUN/Creatinine Ratio 13.8 Glucose 131 H Calcium 8.1 L Magnesium 1.7 L RLE - distally 2+ dp pulse. nvi. Assessment: 87 yo f with dementia, seizure, comorbidities s/p fall with R femoral neck fx Plan: Pt. has declined since hospitalization. Pt's son is exploring hospice. Ortho to sign off but please do call if you need us. []
--- NOTE | 2018-06-22 11:47 | PN ---
Subjective Date of Service: 06/22/18 Length of Stay: 3 Days Interval History: Intermittently febrile. Positive Ucx, on Abx. No further seizure activity. Receiving periodic MS for pain. Currently awake but very confused. Last MS at 3:30 am this morning. No reported issues overnight. Objective Active Medications: Acetaminophen (Tylenol Supp*) 650 mg [place] Q6H PRN PRN Reason: FEVER/PAIN Last Admin: 06/22/18 03:54 Dose: 650 mg Enoxaparin Sodium (Lovenox(*)) 40 mg SUBCUT Q24H [facility] Last Admin: 06/21/18 20:09 Dose: 40 mg Hydralazine HCl (Apresoline Iv*) 10 mg IV SLOW PU Q6H PRN PRN Reason: SYSTOLIC BP GREATER THAN:180 Last Admin: 06/21/18 23:34 Dose: 10 mg Ceftriaxone Sodium 1 gm/ (Sodium Chloride) 50 mls @ 200 mls/hr IVPB Q24H [facility] Last Admin: 06/21/18 15:07 Dose: 200 mls/hr Levetiracetam (Keppra Iv Premix*) 500 mg in 100 mls @ 400 mls/hr IVPB Q12H [facility] Last Admin: 06/22/18 07:37 Dose: 400 mls/hr Potassium Chloride/Dextrose (D5w 1/2 Ns Kcl 20 Meq 1000 Ml*) 1,000 mls @ 100 mls/hr IV PER RATE [facility] Last Admin: 06/21/18 22:23 Dose: 100 mls/hr Potassium Chloride (Potassium Chloride 10 Meq/50 Ml Ivpremix*) 10 meq in 50 mls @ 50 mls/hr IV Q1H [facility] Stop: 06/22/18 12:59 Last Admin: 06/22/18 10:45 Dose: 50 mls/hr Morphine Sulfate (Morphine 4 Mg/Ml Vial (1 Ml)) 3 mg IV Q4H PRN PRN Reason: PAIN Last Admin: 06/22/18 03:53 Dose: 3 mg Vital Signs 06/21/18 06/21/18 06/21/18 12:52 15:00 15:19 Temperature 98.2 F 97.8 F Pulse Rate 101 114 Respiratory 24 24 22 Rate Blood Pressure 146/56 146/56 (mmHg) O2 Sat by Pulse 91 91 Oximetry 06/21/18 06/21/18 06/21/18 15:26 15:33 15:55 Temperature 97.8 F Pulse Rate 114 Respiratory 22 20 18 Rate Blood Pressure 146/56 (mmHg) O2 Sat by Pulse 91 Oximetry 06/21/18 06/21/18 06/21/18 20:00 20:30 22:25 Temperature 98.9 F Pulse Rate 113 95 Respiratory 18 19 Rate Blood Pressure 138/80 (mmHg) O2 Sat by Pulse 94 94 Oximetry 06/21/18 06/21/18 06/21/18 23:12 23:17 23:23 Temperature 99.0 F Pulse Rate 109 Respiratory 24 24 Rate Blood Pressure 188/86 188/75 (mmHg) O2 Sat by Pulse 93 Oximetry 06/22/18 06/22/18 06/22/18 01:30 03:18 03:29 Temperature 99.7 F Pulse Rate 61 115 Respiratory 18 25 Rate Blood Pressure 172/64 (mmHg) O2 Sat by Pulse 95 Oximetry 06/22/18 06/22/18 06/22/18 03:46 03:53 03:59 Temperature 101 F Pulse Rate 105 Respiratory 25 Rate Blood Pressure 172/68 (mmHg) O2 Sat by Pulse Oximetry 06/22/18 06/22/18 06/22/18 05:37 07:42 07:52 Temperature 99.1 F Pulse Rate 99 Respiratory 20 20 20 Rate Blood Pressure (mmHg) O2 Sat by Pulse Oximetry 06/22/18 06/22/18 08:37 08:42 Temperature 98.8 F Pulse Rate 89 Respiratory 19 Rate Blood Pressure 147/51 (mmHg) O2 Sat by Pulse 94 Oximetry Intake and Output Last 24 Hours 06/20/18 06/21/18 06/22/18 06/23/18 06:59 06:59 06:59 06:59 Intake Total 727 1074 1303 Output Total 1650 1500 2410 Balance -923 -426 -1107 Weight 116 lb 6.465 oz Intake: IV Fluids 748 080 0021 D5W 1/2 NS 20 meq KCL 1303 KEPPRA 100 NS (0.9%) 181 974 IVPB 176 100 K+ 176 KEPPRA 100 Oral 20 0 0 Output: Stephens 1650 1500 2410 Other: Date of Last Bowel unknown Movement # Bowel Movements 0 0 Estimated Stool Amount Small Oxygen Devices in Use Now: None Neurology Exam: General: Difficult exam, non-compliant: HEENT: Normocephelic/atraumatic, sclera anicteric, mucous membranes moist Neck: Supple Chest: Clear to auscultation bilaterally Cardiovascular: Regular rate and rhythm without murmurs, rubs, gallops Abdomen: Soft, non-tender/non-distended Extremities: No clubbing, cyanosis, or edema Neurological Findings: Awake but very confused, not answering questions appropriate. Paucity of speech Cranial Nerve: PERRL,no nystagmus, face symmetric bilaterally Motor: W/D to pain X 4, limited movement of RLE Sensation: W/D to pain No tremors Non ambulatory Result Diagrams: 06/21/18 06:06 06/22/18 06:06 Microbiology and Other Data: Microbiology 06/20/18 03:03 Nasal Screen MRSA (PCR) - Final Nasal Mrsa Not Detected Assessment/Plan 87 h/o s/p fall with right hip fracture. She has a history of prior CVA, HTN, polycythemia, CLL, dementia moderate to severe with fevers, positive lactate, on Abx, with seizure like activity and declining MS. --No evidedence for stroke --Seizure likely secondary to underlying infection, fevers with predisposition and lowered baseline threshold likely secondary to prior stroke +/- dementia, both of which are risk factors. No further seizure activity. Continue Keppra 500mg bid --AMS/Delirium: Multifactorial. MS for pain is complicating picture. I do not suspect ongoing seizures as cause. Dementia with underlying infection and seizures likely cause. Would continue medical management with Abx. My suspicions for [employer] infection is low. Would hold on LP at this point. --I will continue to follow along
[2018-06-22] MEDS: cefTRIAXone(*) 1 GM in NS 0.9% 50 ML* 50 ML IVPB SCH (13:11)
[2018-06-22] MEDS ORDERED: Morphine 4 MG/ML VIAL (1 ml) 4 MG/ML VIAL IV PRN (15:53)
[2018-06-22] MEDS: Potassium Chloride IV* 20 MEQ in Lactated Ringers 1000 ML Bag* 1,000 ML IVPB SCH (19:12)
[2018-06-22] MEDS: Enoxaparin(*) 40 MG/0.4 ML SYR SUBCUT SCH (19:47)
[2018-06-23] MEDS: Potassium Chloride IV* 20 MEQ in Lactated Ringers 1000 ML Bag* 1,000 ML IVPB SCH (05:39)
[2018-06-23 06:39] LABS: Hematocrit 34 % (33-41); Hemoglobin 11.2 g/dL (12.0-16.0); Mean Corpuscular HGB Conc 33 g/dL (31-36); Mean Corpuscular Hemoglobin 36 pg (27-31); Mean Corpuscular Volume 108 fL (80-97); Red Blood Count 3.12 10^6 /uL (3.70-4.87); Red Cell Distribution Width 15 % (10.5-15)
[2018-06-23 06:49] LABS: BUN/Creatinine Ratio 18.2 (8-20); Calcium 8.4 mg/dL (8.6-10.3); EGFR African American 125.9 (>60); EGFR Non-African American 104.1 (>60); Magnesium 1.9 mg/dL (1.9-2.7)
[2018-06-23 08:18] LABS: ABS Basophils 0.1 10^3/ul (0-0.2); ABS Eosinophils 0.3 10^3/ul (0-0.6); ABS Lymphocytes 1.1 10^3/ul (1.0-4.8); ABS Monocytes 0.7 10^3/ul (0-0.8); ABS Neutrophils 6.6 10^3/ul (1.5-7.7); ABS Nucleated RBC 0 10^3/ul; Eosinophil % 2.9 %; Mean Platelet Volume 7.6 fL (7.4-10.4); Nucleated Red Blood Cells % 0; Platelet Count 245 10^3/uL (150-450); White Blood Count 8.8 10^3/uL (3.5-10.8)
--- NOTE | 2018-06-23 08:40 | PN ---
Subjective Date of Service: 06/23/18 Length of Stay: 4 Days Interval History: Overnight no new issues. Spoke with her nurse this am and no reported changes. No seizure activity reported. I did review nurses notes and there was one point yesterday that she seemed to become more responsive, awake but this am remains very somnolent, responds to voice, mumbles, not following. Last dose of MS was yesterday. Family History: Unchanged from Admission Social History: Unchanged from Admission Past Medical History: Unchanged from Admission Objective Active Medications: Acetaminophen (Tylenol Supp*) 650 mg [place] Q6H PRN PRN Reason: FEVER/PAIN Last Admin: 06/22/18 03:54 Dose: 650 mg Enoxaparin Sodium (Lovenox(*)) 40 mg SUBCUT Q24H [facility] Last Admin: 06/22/18 19:47 Dose: 40 mg Hydralazine HCl (Apresoline Iv*) 10 mg IV SLOW PU Q6H PRN PRN Reason: SYSTOLIC BP GREATER THAN:180 Last Admin: 06/21/18 23:34 Dose: 10 mg Ceftriaxone Sodium 1 gm/ (Sodium Chloride) 50 mls @ 200 mls/hr IVPB Q24H [facility] Last Admin: 06/22/18 13:11 Dose: 200 mls/hr Levetiracetam (Keppra Iv Premix*) 500 mg in 100 mls @ 400 mls/hr IVPB Q12H [facility] Last Admin: 06/22/18 19:46 Dose: 400 mls/hr Potassium Chloride 20 meq/ (Lactated Ringer's) 1,010 mls @ 75 mls/hr IVPB Q13H [facility] Last Admin: 06/23/18 05:39 Dose: 75 mls/hr Morphine Sulfate (Morphine 4 Mg/Ml Vial (1 Ml)) 2 mg IV Q4H PRN PRN Reason: SEVERE PAIN Vital Signs 06/22/18 06/22/18 06/22/18 08:42 12:06 13:02 Temperature 98.8 F 98.8 F Pulse Rate 82 Respiratory 20 24 Rate Blood Pressure 144/80 (mmHg) O2 Sat by Pulse 97 Oximetry 06/22/18 06/22/18 06/22/18 13:21 13:47 15:17 Temperature 97.9 F 97.0 F Pulse Rate 95 98 Respiratory 20 24 20 Rate Blood Pressure 152/68 155/58 (mmHg) O2 Sat by Pulse 95 94 Oximetry 06/22/18 06/22/18 06/22/18 15:32 19:47 19:55 Temperature 97.5 F Pulse Rate 82 107 Respiratory 20 24 20 Rate Blood Pressure 138/70 148/77 (mmHg) O2 Sat by Pulse 92 Oximetry 06/22/18 06/23/18 06/23/18 23:38 03:23 07:15 Temperature 96.9 F 97.1 F Pulse Rate 108 108 Respiratory 24 26 Rate Blood Pressure 158/85 174/109 158/82 (mmHg) O2 Sat by Pulse 94 94 Oximetry Intake and Output Last 24 Hours 06/21/18 06/22/18 06/23/18 06/24/18 06:59 06:59 06:59 06:59 Intake Total 1074 1303 890 Output Total 1500 2410 1920 [facility] -426 -1107 -1030 Intake: IV Fluids 974 1303 780 D5W 1/2 NS 20 meq KCL 1303 LR w/K 760 NS (0.9%) 974 20 IVPB 100 110 KEPPRA 100 110 Oral 0 0 0 Output: Urine 620 Stephens 1500 2410 1300 Other: Estimated Void Small Date of Last Bowel unknown Movement # Bowel Movements 0 0 0 Estimated Stool Amount Small # Voids 1 Oxygen Devices in Use Now: None Neurology Exam: General: Sleeping, awakens briefly HEENT: Normocephalic/atraumatic, sclera anicteric, mucous membranes moist Neck: No obvious pain with movement Chest: Clear to auscultation bilaterally Cardiovascular: Regular rate and rhythm without murmurs, rubs, gallops Abdomen: Soft, non-tender/non-distended Extremities: No clubbing, cyanosis, or edema Neurological Findings: Difficult exam, non-compliant Sleeping, awakens but non-verbal, not following commands Cranial Nerve: PERRL, face symmetric bilaterally Motor: W/D to pain X 4, limited movement of RLE Sensation: W/D to pain No tremors or seizure like activity Non ambulatory Result Diagrams: 06/23/18 06:21 06/23/18 06:21 Microbiology and Other Data: Microbiology 06/20/18 03:03 Nasal Screen MRSA (PCR) - Final Nasal Mrsa Not Detected Assessment/Plan Assessment: 87 h/o s/p fall with subcaptial fracture of the right femoral neck. She has a history of prior CVA, HTN, polycythemia, CLL, dementia moderate to severe with fevers, positive lactate, on Abx, with seizure like activity and declining MS. I continue to suspect a multifactorial delirium secondary to hospitalization, right hip fracture and pain, infection on top of an underlying moderate to severe dementia with decompensation. --Continue supportive care --Minimize narcotics and sedating medications as much as possible in the setting of acute pain --She is likely not going to be a candidate for surgery at this point --On Abx Recent seizure was likely related to multiple factors including a lowered seizure threshold secondary to underlying dementia and prior stroke with superimposed infection and fevers. --I would continue Keppra but will reduce dose to 250mg po bid to minimize risk of Keppra toxicity in an 87 year old with dementia. My suspicion for ongoing seizure activity is low. --I will continue to follow along
--- NOTE | 2018-06-23 09:45 | PN ---
Subjective Date of Service: 06/23/18 Interval History: HOSPITALIST PROGRESS NOTE Patient seen and examined at bedside. Care reviewed and d/w Shabbir Nunez RN. She opens eyes when touched, does not speak. Lengthy conversation with son (Phi Serrano) at bedside. He describes a 10 year period of progressive decline in her cognition, to the point she doesn't recognize him anymore, and is really not enjoying life. Cannot do puzzles or play with other residents. He states in the past she made statements about "dying to be with Fili (her who passed 11 years ago). Family History: Unchanged from Admission Social History: Unchanged from Admission Past Medical History: Unchanged from Admission Objective Active Medications: Acetaminophen (Tylenol Supp*) 650 mg [place] Q6H PRN PRN Reason: FEVER/PAIN Last Admin: 06/22/18 03:54 Dose: 650 mg Enoxaparin Sodium (Lovenox(*)) 40 mg SUBCUT Q24H [facility] Last Admin: 06/22/18 19:47 Dose: 40 mg Hydralazine HCl (Apresoline Iv*) 10 mg IV SLOW PU Q6H PRN PRN Reason: SYSTOLIC BP GREATER THAN:180 Last Admin: 06/21/18 23:34 Dose: 10 mg Ceftriaxone Sodium 1 gm/ (Sodium Chloride) 50 mls @ 200 mls/hr IVPB Q24H [facility] Last Admin: 06/22/18 13:11 Dose: 200 mls/hr Potassium Chloride 20 meq/ (Lactated Ringer's) 1,010 mls @ 75 mls/hr IVPB Q13H [facility] Last Admin: 06/23/18 05:39 Dose: 75 mls/hr Levetiracetam 250 mg/ Sodium (Chloride) 102.5 mls @ 410 mls/hr IVPB Q12H [facility] Morphine Sulfate (Morphine 4 Mg/Ml Vial (1 Ml)) 2 mg IV Q4H PRN PRN Reason: SEVERE PAIN Vital Signs - 8 hr 06/23/18 06/23/18 06/23/18 03:23 07:15 07:35 Temperature 97.1 F 98.3 F Pulse Rate 108 99 Respiratory 26 18 Rate Blood Pressure 174/109 158/82 168/74 (mmHg) O2 Sat by Pulse 94 94 Oximetry 06/23/18 08:00 Temperature Pulse Rate Respiratory 16 Rate Blood Pressure (mmHg) O2 Sat by Pulse Oximetry Oxygen Devices in Use Now: None Appearance: Elderly lady lying in bed in NAD. Eyes: No Scleral Icterus Ears/Nose/Mouth/Throat: Mucous Membranes Moist Neck: Trachea Midline Respiratory: Symmetrical Chest Expansion and Respiratory Effort, Clear to Auscultation Cardiovascular: RRR - Normal S1 and S2 Abdominal: NL Sounds; No Tenderness; No Distention Neurological: - - Opens eyes when touched, does not follow commands Result Diagrams: 06/23/18 06:21 06/23/18 06:21 Assess/Plan/Problems-Billing Assessment: Mrs Serrano is an 87yo F with PMH of dementia and nonverbal at baseline, HTN, h/ o CVA, CLL, polycythemia, presenting from [facility] after noted to not bear weight on R leg. Found to have fever, positive lactate, with hip xray showing subcapital fracture of R femoral neck. Admitted for pain control, possible hemiarthroplasty, and sepsis treatment, with hospital course c/b seizure (06/20) and worsening mental status. - Patient Problems (1) Sepsis Comment: - Present on first 24h of admission with fever, tachycardia, and leukocytosis. - Source is UTI. (2) UTI (urinary tract infection) Comment: - Present on admission, not Stephens catheter related. - Urine culture grew Aerococcus - continue Ceftriaxone. (3) Seizure Comment: - W/u showed no evidence of new stroke, but at high risk given prior stroke and dementia lowering her seizure threshold. - Continue Keppra. - Neurology input appreciated. (4) Hip fracture Comment: - Lengthy conversation with son - will not pursue surgery. (5) Hypertension Comment: - Likely high BP related to significant pain from fracture. Now unable to take PO after seizure. - Continue hydralazine IV prn. (6) Delirium Comment: - On top of dementia, worsened by Morphine necessary for pain. - Continue supportive care. (7) DVT prophylaxis Comment: - Lovenox. (8) DNR (do not resuscitate) (9) End of life care Comment: - As per conversation with son, patient has not had good quality of life prior to hip fracture, and has had significant cognitive decline over the past 10 years, to the point she doesn't even recognize him anymore. We talked about pursuing surgery, but this would not change her cognitive decline. He's very clear she would not want to live like this if she had the capacity for making decisions at this time. We reviewed risks, benefits and alternatives to surgery, and at this point, patient will be transitioned to comfort care measures with plan for Hospice at a SNF in [place], so she can be closer to her son. Status and Disposition: Inpatient. CM to assist with plan for Hospice at SNF in [place].
[2018-06-23] MEDS: levETIRAcetam 500 MG IVPREMIX* 500 MG/100 ML BAG IVPB SCH (09:55)
[2018-06-23] MEDS: levETIRAcetam IV* 250 MG in NS 0.9% 100 ML* 100 ML IVPB SCH ×2 (10:33→21:23)
[2018-06-23] MEDS ORDERED: LORazepam INJ* 2 MG/ML 1 ML VIAL IV PUSH PRN (11:50)
[2018-06-23] MEDS ORDERED: LORazepam TAB(*) 1 MG SL PRN (11:50)
[2018-06-23] MEDS ORDERED: Atropine 1% (ORAL/SL)* 15 ML BTL SL PRN (11:50)
[2018-06-23] MEDS ORDERED: Morphine ORAL CONCENTRATE* 5 MG/0.25 ML ORAL.SYRIN SL PRN (11:51)
[2018-06-23] MEDS: cefTRIAXone(*) 1 GM in NS 0.9% 50 ML* 50 ML IVPB SCH (14:30)
[2018-06-23] MEDS ORDERED: Furosemide TAB* 20 MG PO SCH (15:00)
[2018-06-23] MEDS: Enoxaparin(*) 40 MG/0.4 ML SYR SUBCUT SCH (21:23)
[2018-06-24] MEDS: levETIRAcetam IV* 250 MG in NS 0.9% 100 ML* 100 ML IVPB SCH (12:00)
--- NOTE | 2018-06-24 13:30 | PN ---
Subjective Date of Service: 06/24/18 Interval History: HOSPITALIST PROGRESS NOTE Patient seen and examined at bedside. Care reviewed and d/w Shabbir Nunez RN. Last 24h events noted. Lying in bed, eyes closes, appears to be comfortable. Family History: Unchanged from Admission Social History: Unchanged from Admission Past Medical History: Unchanged from Admission Objective Active Medications: Acetaminophen (Tylenol Supp*) 650 mg NE Q6H PRN PRN Reason: FEVER/PAIN Last Admin: 06/22/18 03:54 Dose: 650 mg Atropine Sulfate (Atropine 1% (Oral/Sl)*) 2 drop SL Q2H PRN PRN Reason: Terminal secretions Enoxaparin Sodium (Lovenox(*)) 40 mg SUBCUT Q24H [facility] Last Admin: 06/23/18 21:23 Dose: 40 mg Hydralazine HCl (Apresoline Iv*) 10 mg IV SLOW PU Q6H PRN PRN Reason: SYSTOLIC BP GREATER THAN:180 Last Admin: 06/21/18 23:34 Dose: 10 mg Ceftriaxone Sodium 1 gm/ (Sodium Chloride) 50 mls @ 200 mls/hr IVPB Q24H [facility] Last Admin: 06/23/18 14:30 Dose: 200 mls/hr Levetiracetam 250 mg/ Sodium (Chloride) 102.5 mls @ 410 mls/hr IVPB Q12H [facility] Last Admin: 06/24/18 12:00 Dose: 410 mls/hr Lorazepam (Ativan Inj*) 1 mg IV PUSH Q4H PRN PRN Reason: Seizure Lorazepam (Ativan Tab(*)) 1 mg SL Q4H PRN PRN Reason: ANXIETY Morphine Sulfate (Morphine 4 Mg/Ml Vial (1 Ml)) 2 mg IV Q4H PRN PRN Reason: SEVERE PAIN Morphine Sulfate (Morphine Oral Concentrate*) 5 mg SL Q1H PRN PRN Reason: Pain/Tachypnea RR>24 Vital Signs - 8 hr 06/24/18 06/24/18 07:52 08:00 Temperature 98.5 F Pulse Rate 107 Respiratory 16 16 Rate Blood Pressure 159/70 (mmHg) O2 Sat by Pulse 95 Oximetry Oxygen Devices in Use Now: None Appearance: Elderly lady lying in bed on her left side, in NAD, appears to be comfortable. Eyes: No Scleral Icterus Ears/Nose/Mouth/Throat: Mucous Membranes Moist Neck: Trachea Midline Respiratory: Symmetrical Chest Expansion and Respiratory Effort, Clear to Auscultation Cardiovascular: RRR - Normal S1 and S2 Neurological: - - Sleeping Result Diagrams: 06/23/18 06:21 06/23/18 06:21 Assess/Plan/Problems-Billing Assessment: Mrs Serrano is an 87yo F with PMH of dementia and nonverbal at baseline, HTN, h/ o CVA, CLL, polycythemia, presenting from [facility] after noted to not bear weight on R leg. Found to have fever, positive lactate, with hip xray showing subcapital fracture of R femoral neck. Admitted for pain control, possible hemiarthroplasty, and sepsis treatment, with hospital course c/b seizure (06/20) and worsening mental status. Now comfort care only. - Patient Problems (1) Sepsis Comment: - Present on first 24h of admission with fever, tachycardia, and leukocytosis. - Source is UTI. (2) UTI (urinary tract infection) Comment: - Present on admission, not Stephens catheter related. - Urine culture grew Aerococcus - continue Ceftriaxone #6/7. (3) Seizure Comment: - W/u showed no evidence of new stroke, but at high risk given prior stroke and dementia lowering her seizure threshold. - Continue Keppra. - D/w Neurology - will change Keppra to PO; if she cannot take it, would recommend Ativan for seizures. (4) Hip fracture Comment: - Lengthy conversation with son - will not pursue surgery. (5) Hypertension Comment: - Controlled. (6) Delirium Comment: - On top of dementia, worsened by Morphine necessary for pain. - Continue supportive care. (7) DVT prophylaxis Comment: - D/c Lovenox, as goal now is for comfort. (8) DNR (do not resuscitate) (9) End of life care Comment: - As per conversation with son on 06/23/18, patient has not had good quality of life prior to hip fracture, and has had significant cognitive decline over the past 10 years, to the point she doesn't even recognize him anymore. We talked about pursuing surgery, but this would not change her cognitive decline. He's very clear she would not want to live like this if she had the capacity to make decisions at this time. We reviewed risks, benefits and alternatives to surgery, and plan is for comfort care measures and discharge to Hospice at a SNF in [place], so she can be closer to her son. Status and Disposition: Inpatient. CM to assist with plan for Hospice at SNF in [place].
[2018-06-24] MEDS: cefTRIAXone(*) 1 GM in NS 0.9% 50 ML* 50 ML IVPB SCH (14:19)
[2018-06-24] MEDS: levETIRAcetam LIQ* 500 MG/5 ML UDC PO SCH (20:05)
[2018-06-25] MEDS: levETIRAcetam LIQ* 500 MG/5 ML UDC PO SCH ×2 (08:26→21:57)
[2018-06-25] MEDS ORDERED: hydrALAZINE IV* 20 MG/ML VIAL IV SLOW PU PRN (10:31)
--- NOTE | 2018-06-25 10:37 | PN ---
Subjective Date of Service: 06/25/18 Interval History: Per MATTHEW Jewell SBP > 180. Patient not exhibiting signs of symptoms related to BP as she is lying comfortably in bed. Hydralazine ordered for SBP > 180. MATTHEW Jewell made aware. Patient resting in bed on assessment. Opens eyes to voice and touch. Followed simple commands (squeezing fingers). Does not answer questions. No visible evidence of pain as no grimacing or moaning. Family History: Unchanged from Admission Social History: Unchanged from Admission Past Medical History: Unchanged from Admission Objective Active Medications: Acetaminophen (Tylenol Supp*) 650 mg CA Q6H PRN PRN Reason: FEVER/PAIN Last Admin: 06/22/18 03:54 Dose: 650 mg Atropine Sulfate (Atropine 1% (Oral/Sl)*) 2 drop SL Q2H PRN PRN Reason: Terminal secretions Hydralazine HCl (Apresoline Iv*) 5 mg IV SLOW PU Q6H PRN PRN Reason: BLOOD PRESSURE Ceftriaxone Sodium 1 gm/ (Sodium Chloride) 50 mls @ 200 mls/hr IVPB Q24H [facility] Stop: 06/25/18 23:59 Last Admin: 06/24/18 14:19 Dose: 200 mls/hr Levetiracetam (Keppra Liq*) [address] [facility] Last Admin: 06/25/18 08:26 Dose: 250 mg Lorazepam (Ativan Inj*) 1 mg IV PUSH Q4H PRN PRN Reason: Seizure Lorazepam (Ativan Tab(*)) 1 mg SL Q4H PRN PRN Reason: ANXIETY Morphine Sulfate (Morphine 4 Mg/Ml Vial (1 Ml)) 2 mg IV Q4H PRN PRN Reason: SEVERE PAIN Morphine Sulfate (Morphine Oral Concentrate*) 5 mg SL Q1H PRN PRN Reason: Pain/Tachypnea RR>24 Vital Signs - 8 hr 06/25/18 06/25/18 07:51 08:00 Temperature 98.2 F Pulse Rate 106 Respiratory 14 16 Rate Blood Pressure 183/91 (mmHg) O2 Sat by Pulse 95 Oximetry Oxygen Devices in Use Now: None Appearance: Comfortable, NAD Eyes: No Scleral Icterus Ears/Nose/Mouth/Throat: Clear Oropharnyx, Mucous Membranes Moist Neck: NL Appearance and Movements; NL JVP Respiratory: Symmetrical Chest Expansion and Respiratory Effort, Clear to Auscultation Cardiovascular: NL Sounds; No Murmurs; No JVD, No Edema Abdominal: NL Sounds; No Tenderness; No Distention Lymphatic: No Cervical Adenopathy Extremities: No Edema Skin: No Rash or Ulcers Neurological: NL Muscle Strength and Tone Nutrition: Taking PO's Result Diagrams: 06/23/18 06:21 06/23/18 06:21 Additional Lab and Data: . Microbiology and Other Data: Microbiology 06/20/18 03:15 Blood Venous Aerobic Blood Culture - Final No Growth Day 5 06/20/18 03:15 Blood Venous Anaerobic Blood Culture - Final No Growth Day 5 06/20/18 03:04 Blood Venous Aerobic Blood Culture - Final No Growth Day 5 06/20/18 03:04 Blood Venous Anaerobic Blood Culture - Final No Growth Day 5 06/19/18 11:41 Urine Urine Culture - Final Aerococcus Urinae Normal Tanya 06/20/18 03:03 Nasal Nasal Screen MRSA (PCR) - Final Mrsa Not Detected Assess/Plan/Problems-Billing Assessment: Mrs Serrano is an 87yo F with PMH of dementia and nonverbal at baseline, HTN, h/ o CVA, CLL, polycythemia, presenting from [facility] after noted to not bear weight on R leg. Found to have fever, positive lactate, with hip xray showing subcapital fracture of R femoral neck. Admitted for pain control, possible hemiarthroplasty, and sepsis treatment, with hospital course c/b seizure (06/20) and worsening mental status. Now comfort care only. - Patient Problems (1) Hypertension Comment: - SBP elevated this morning > 180 (was rechecked manually per nurse). Hydralazine ordered PRN - Cont to monitor (2) Hip fracture Comment: - Dr Bran had conversation with son - will not pursue surgery. (3) Delirium Comment: - Continue supportive care. (4) Seizure Comment: - W/u showed no evidence of new stroke, but at high risk given prior stroke and dementia lowering her seizure threshold. - Continue Keppra. - D/w Neurology - will change Keppra to PO; if she cannot take it, would recommend Ativan for seizures. (5) Sepsis Comment: - Present on first 24h of admission with fever, tachycardia, and leukocytosis. RESOLVED. - Source is UTI. (6) UTI (urinary tract infection) Comment: - Present on admission, not Stephens catheter related. - Urine culture grew Aerococcus - continue Ceftriaxone #/. Discontinue after today (7) DNR (do not resuscitate) (8) DVT prophylaxis Comment: - D/c Lovenox, as goal now is for comfort. (9) End of life care Comment: - Per Dr Bran's conversation with son on 06/23/18, patient has not had good quality of life prior to hip fracture, and has had significant cognitive decline over the past 10 years, to the point she doesn't even recognize him anymore. Talked about pursuing surgery, but this would not change her cognitive decline. He's very clear she would not want to live like this if she had the capacity to make decisions at this time. We reviewed risks, benefits and alternatives to surgery, and plan is for comfort care measures and discharge to Hospice at a SNF in [place], so she can be closer to her son. Status and Disposition: Inpatient. CM to assist with plan for Hospice at SNF in [place]. Attending: Lissette Qureshi
[2018-06-25] MEDS: cefTRIAXone(*) 1 GM in NS 0.9% 50 ML* 50 ML IVPB SCH (15:06)
[2018-06-26 08:46] LABS: ABS Basophils 0.1 10^3/ul (0-0.2); ABS Eosinophils 0 10^3/ul (0-0.6); ABS Monocytes 0.9 10^3/ul (0-0.8); ABS Neutrophils 8.9 10^3/ul (1.5-7.7); ABS Nucleated RBC 0 10^3/ul; Eosinophil % 0.1 %; Hematocrit 38 % (33-41); Hemoglobin 12.6 g/dL (12.0-16.0); Lymphocyte % 8.9 %; Mean Corpuscular HGB Conc 34 g/dL (31-36); Mean Corpuscular Hemoglobin 36 pg (27-31); Mean Corpuscular Volume 106 fL (80-97); Mean Platelet Volume 7.7 fL (7.4-10.4); Nucleated Red Blood Cells % 0; Platelet Count 220 10^3/uL (150-450); Red Blood Count 3.53 10^6 /uL (3.70-4.87); Red Cell Distribution Width 15 % (10.5-15); White Blood Count 10.9 10^3/uL (3.5-10.8)
[2018-06-26 08:58] LABS: BUN/Creatinine Ratio 43.9 (8-20); Calcium 9.3 mg/dL (8.6-10.3); EGFR African American 120.8 (>60); EGFR Non-African American 99.9 (>60); Magnesium 1.9 mg/dL (1.9-2.7); Potassium 3.3 mmol/L (3.5-5.0)
[2018-06-26] MEDS: levETIRAcetam LIQ* 500 MG/5 ML UDC PO SCH ×2 (10:41→21:12)
[2018-06-26] MEDS: Metoprolol Tartrate TAB* 25 MG PO SCH ×2 (10:42→21:13)
[2018-06-26] MEDS ORDERED: Potassium Chloride LIQUID* 20 MEQ PACKET PO ONE (15:17)
--- NOTE | 2018-06-26 15:57 | PN ---
Subjective Date of Service: 06/26/18 Interval History: Received call from counter caser and son has accepted bed with Hospice. Plan is for patient to be discharged tomorrow morning. On assessment patient is resting in bed and son is at bedside. Discussed plan and son is agreeable. Also discussed the restarting of Metoprolol since patient is now taking PO medications and has been having elevated BPs which required PRN Hydralazine. Son is agreeable to this plan. Also discussed giving a small amount of IV fluid this evening given patient's lab and decrease in intake today and son would like this done. Patient responds to voice, but does not answer questions. No s/s of pain. Family History: Unchanged from Admission Social History: Unchanged from Admission Past Medical History: Unchanged from Admission Objective Active Medications: Acetaminophen (Tylenol Supp*) 650 mg DC Q6H PRN PRN Reason: FEVER/PAIN Last Admin: 06/22/18 03:54 Dose: 650 mg Atropine Sulfate (Atropine 1% (Oral/Sl)*) 2 drop SL Q2H PRN PRN Reason: Terminal secretions Hydralazine HCl (Apresoline Iv*) 5 mg IV SLOW PU Q6H PRN PRN Reason: BLOOD PRESSURE Last Admin: 06/25/18 11:19 Dose: 5 mg Sodium Chloride (Ns 0.9% 500 Ml*) 500 mls @ 75 mls/hr IV PER RATE [facility] Stop: 06/26/18 22:39 Last Admin: 06/26/18 15:31 Dose: 75 mls/hr Levetiracetam (Keppra Liq*) 250 mg PO BID [facility] Last Admin: 06/26/18 10:41 Dose: 250 mg Lorazepam (Ativan Inj*) 1 mg IV PUSH Q4H PRN PRN Reason: Seizure Lorazepam (Ativan Tab(*)) 1 mg SL Q4H PRN PRN Reason: ANXIETY Metoprolol Tartrate (Lopressor Tab*) 25 mg PO BID [facility] Last Admin: 06/26/18 10:42 Dose: 25 mg Morphine Sulfate (Morphine 4 Mg/Ml Vial (1 Ml)) 2 mg IV Q4H PRN PRN Reason: SEVERE PAIN Morphine Sulfate (Morphine Oral Concentrate*) 5 mg SL Q1H PRN PRN Reason: Pain/Tachypnea RR>24 Vital Signs - 8 hr 06/26/18 06/26/1806/26/19 07:57 08:43 11:16 Temperature Pulse Rate 82 Respiratory 20 18 Rate Blood Pressure (mmHg) O2 Sat by Pulse Oximetry 06/26/18 06/26/18 13:19 13:31 Temperature 98.0 F Pulse Rate 250 84 Respiratory 24 Rate Blood Pressure 141/87 (mmHg) O2 Sat by Pulse 94 Oximetry Oxygen Devices in Use Now: None Appearance: Comfortable, NAD Eyes: No Scleral Icterus Ears/Nose/Mouth/Throat: Clear Oropharnyx, Mucous Membranes Moist Neck: NL Appearance and Movements; NL JVP Respiratory: Symmetrical Chest Expansion and Respiratory Effort, Clear to Auscultation Cardiovascular: NL Sounds; No Murmurs; No JVD, RRR, No Edema Abdominal: NL Sounds; No Tenderness; No Distention Lymphatic: No Cervical Adenopathy Extremities: No Clubbing, Cyanosis Skin: No Rash or Ulcers Neurological: - - Nonverbal Nutrition: Taking PO's Result Diagrams: 06/26/18 08:36 06/26/18 08:36 Additional Lab and Data: Laboratory Results - last 24 hr 06/26/18 06/26/18 08:36 08:36 WBC 10.9 H RBC 3.53 L Hgb 12.6 Hct 38 MCV 106 H MCH 36 H MCHC 34 RDW 15 Plt Count 220 MPV 7.7 Neut % (Auto) 82.1 Lymph % (Auto) 8.9 [place] % (Auto) 8.1 Eos % (Auto) 0.1 Baso % (Auto) 0.8 Absolute Neuts (auto) 8.9 H Absolute Lymphs (auto) 1.0 Absolute Monos (auto) 0.9 H Absolute Eos (auto) 0 Absolute Basos (auto) 0.1 Absolute Nucleated RBC 0 Nucleated RBC % 0 Sodium 147 H Potassium 3.3 L Chloride 111 Carbon Dioxide 25 Anion Gap 11 BUN 25 H Creatinine 0.57 Est GFR ( Amer) 120.8 Est GFR (Non-Af Amer) 99.9 BUN/Creatinine Ratio 43.9 H Glucose 136 H Calcium 9.3 Magnesium 1.9 Microbiology and Other Data: Microbiology 06/20/18 03:15 Blood Venous Aerobic Blood Culture - Final No Growth Day 5 06/20/18 03:15 Blood Venous Anaerobic Blood Culture - Final No Growth Day 5 06/20/18 03:04 Blood Venous Aerobic Blood Culture - Final No Growth Day 5 06/20/18 03:04 Blood Venous Anaerobic Blood Culture - Final No Growth Day 5 06/19/18 11:41 Urine Urine Culture - Final Aerococcus Urinae Normal Tanya 06/20/18 03:03 Nasal Nasal Screen MRSA (PCR) - Final Mrsa Not Detected Assess/Plan/Problems-Billing Assessment: Mrs Serrano is an 87yo F with PMH of dementia and nonverbal at baseline, HTN, h/ o CVA, CLL, polycythemia, presenting from [facility] after noted to not bear weight on R leg. Found to have fever, positive lactate, with hip xray showing subcapital fracture of R femoral neck. Admitted for pain control, possible hemiarthroplasty, and sepsis treatment, with hospital course c/b seizure (06/20) and worsening mental status. Now comfort care only. - Patient Problems (1) Hypertension Comment: - SBP elevated - Restarted patient home Metoprolol at lower dose since she is now taking PO. Son is agreeable to this plan (2) Hip fracture Comment: - Dr Bran had conversation with son - will not pursue surgery. (3) Delirium Comment: - Continue supportive care. (4) Seizure Comment: - W/u showed no evidence of new stroke, but at high risk given prior stroke and dementia lowering her seizure threshold. - Continue Keppra. - D/w Neurology - will change Keppra to PO; if she cannot take it, would recommend Ativan for seizures. (5) Sepsis Comment: - Present on first 24h of admission with fever, tachycardia, and leukocytosis. RESOLVED. - Source is UTI. (6) UTI (urinary tract infection) Comment: - Present on admission, not Stephens catheter related. - Urine culture grew Aerococcus - Completed course of Ceftriaxone (7) Dehydration Comment: - 500 mls of NS ordered at 75 mls per hour. Son requested this during discussion of labs (8) DNR (do not resuscitate) (9) DVT prophylaxis Comment: - D/c Lovenox, as goal now is for comfort. (10) End of life care Comment: - Per Dr Bran's conversation with son on 06/23/18, patient has not had good quality of life prior to hip fracture, and has had significant cognitive decline over the past 10 years, to the point she doesn't even recognize him anymore. Talked about pursuing surgery, but this would not change her cognitive decline. He's very clear she would not want to live like this if she had the capacity to make decisions at this time. We reviewed risks, benefits and alternatives to surgery, and plan is for comfort care measures and discharge to Hospice at a SNF in [place], so she can be closer to her son. Status and Disposition: Inpatient. CM to assist with plan for Hospice at SNF in [place]. Attending: Danika Yeung
[2018-06-26] MEDS ORDERED: NS 0.9% 500 ML* 500 ML IV SCH (16:00)
[2018-06-27] MEDS: levETIRAcetam LIQ* 500 MG/5 ML UDC PO SCH (08:21)
[2018-06-27] MEDS: Metoprolol Tartrate TAB* 25 MG PO SCH (08:22)
[2018-06-27 09:33] VITALS: BP 142/70
--- NOTE | 2018-06-27 13:55 | DS ---
CC: Dr. Breaux* DATE OF ADMISSION: 06/19/2018. DATE OF DISCHARGE: 06/27/2018. DISPOSITION: To [facility] [place] under hospice care. PRINCIPAL DISCHARGE DIAGNOSES: 1. Hip fracture. 2. End of life care. 3. End-stage dementia. 4. Seizures. SECONDARY DISCHARGE DIAGNOSES: 1. Hypertension. 2. UTI. MEDICATIONS AT THE TIME OF DISCHARGE: 1. Atropine 1% solution 2 drops sublingual q.2 prn terminal secretions. 2. Keppra 250 mg p.o. b.i.d. 3. Lorazepam 1 mg sublingual q.4 prn anxiety or work of breath. 4. Metoprolol Tartrate 25 mg b.i.d. 5. Morphine oral concentrate 5 mg sublingual q.1 hour prn pain. PHYSICAL EXAMINATION AT THE TIME OF DISCHARGE: General: Alert, elderly female who prefers to be curled up in her bed than lying flat. She makes eye contact, but does not respond to most questions. She moans in pain with movement. Vital Signs: Temperature 97.8, heart rate 88, respiratory rate 20, pulse ox 94 percent on room air, blood pressure 142/70. HEENT: Pupils equal, round, and reactive to light. Oral mucosa is dry. Chest: Regular rate and rhythm. Lungs : Clear bilaterally. Abdomen: Soft, nontender, nondistended. Extremities: No edema, rashes, or ulcers. I did not attempt to move her legs or do a hip exam. PERTINENT IMAGIN. A brain MRI on 06/20/2018 showed a limited study. No restricted diffusion to suggest acute infarct and diffuse involutional change with extensive chronic small vessel ischemic changes. 2. Hip x-ray on 06/19/2018 showed a subcapital fracture of the right femoral neck with varus angulation. HOSPITAL COURSE BY PROBLEM: 1. Hip fracture: The etiology of this fracture was unclear as no fall was reported; however, there was no suggestion of a pathologic fracture on imaging. Orthopedic Surgery was consulted and Dr. Mcadams evaluated Ms. Serrano. She felt that a hip hemiarthroplasty was indicated; however, given Ms. Serrano's advanced dementia and poor baseline functional status, the options were discussed with her son who chose to proceed with nonoperative management. Based on this finding, she qualified for hospice care and she was transitioned to comfort care. Her pain has been controlled with p.o. Morphine. 2. End of life care: As mentioned, her pain is controlled with p.o. Morphine and she has not had any other symptoms that we have been managing while an inpatient. 3. Seizures: Her course was complicated by a first time seizure during this hospitalization. She was evaluated by Neurology and she had an EEG which showed diffuse slowing and an MRI showed no new acute CVA; however, they did recommend Keppra 250 b.i.d. which she is being discharged on. 4. UTI: She underwent treatment for a UTI with IV antibiotics while she was admitted. 5. Advanced dementia: She came from the memory unit and it should be noted that her baseline is mostly nonverbal. DISPOSITION: Ms. Serrano is being discharged to hospice care given her end- stage dementia and poor functional capacity at baseline. Nonoperative management of her right hip fracture was pursued. CONDITION AT THE TIME OF DISCHARGE: Guarded. TIME SPENT: Forty-five minutes were spent on this discharge. [id number]/[facility] #: [id number] GIGI
== END 2018-06-27 15:50 | DRG 536 ==
LOC: ED 10:19 → INTOOBSV 13:00 → UNDOADMOB 13:00 → OBSVTOIN 13:00 → SSU 13:00 → ICU 06-20 02:42 → SSU 06-20 02:42 → ICU 06-20 18:01 → MED 06-20 18:01 → UNDODISIN 06-27 15:50
PROVIDERS: ADMIT Hospitalist; ATTEND Internal Medicine
PROC: 4A00X4Z Measurement of Central Nervous Electrical Activity, External Approach (ICD-10-PCS; principal; 2018-06-20)
DX: S72.011A Unspecified intracapsular fracture of right femur, initial encounter for closed fracture (principal); C91.10 Chronic lymphocytic leukemia of B-cell type not having achieved remission; F05 Delirium due to known physiological condition; N39.0 Urinary tract infection, site not specified; F03.90 Unspecified dementia, unspecified severity, without behavioral disturbance, psychotic disturbance, mood disturbance, and anxiety; I10 Essential (primary) hypertension; M19.90 Unspecified osteoarthritis, unspecified site; D75.1 Secondary polycythemia; E87.6 Hypokalemia; I73.9 Peripheral vascular disease, unspecified; W05.0XXA Fall from non-moving wheelchair, initial encounter; Y92.129 Unspecified place in nursing home as the place of occurrence of the external cause; Z66 Do not resuscitate; R56.9 Unspecified convulsions; Z51.5 Encounter for palliative care; B96.89 Other specified bacterial agents as the cause of diseases classified elsewhere; Z86.73 Personal history of transient ischemic attack (TIA), and cerebral infarction without residual deficits; Z91.81 History of falling; Z88.0 Allergy status to penicillin; Z86.718 Personal history of other venous thrombosis and embolism
CPT/HCPCS: 36415; 36600; 70450; 70551; 71045; 80048; 80053; 81003; 81015; 82803; 83605; 83735; 84484; 85025; 85027; 85610; 85730; 86850; 86900; 86901; 87040; 87077; 87086; 87641; 93005; 95816; 99285; A9270-GY; J0133; J0360; J0696; J1644; J1650; J2270; J3475; J3480; J3490